=== PATIENT | male | born 1955 | race Caucasian/White ===

== ENCOUNTER 2018-01-14 19:03 | Emergency (ER) | payer OTHER, SELFPAY ==
[2018-01-14 19:11] VITALS: BP 160/87; PULSE 87; RESP 20; TEMP 36.7; O2SAT 99; BMI 29.0
== END 2018-01-14 19:43 | disposition left against medical advice (07) ==
LOC: ED 19:10
PROVIDERS: Family Provider Internal Medicine; PCP Internal Medicine
DX: R10.9 Unspecified abdominal pain (principal)
CPT/HCPCS: 99281; 99282

== ENCOUNTER 2018-01-16 06:20 | Emergency (ER) | payer OTHER, SELFPAY ==
[2018-01-16 06:43] VITALS: BP 136/79; PULSE 83; RESP 17; TEMP 36.6; O2SAT 99; BMI 29.0
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
[2018-01-16 07:05] LABS: Add Manual Diff / Slide Review NO; Basophils Percent Auto 0.5 % (0-2); Eosinophils Percent Auto 2.9 % (2-4); Hematocrit 36.1 % (41-53); Hemoglobin 12.3 g/dL (13.5-17.5); Mean Corpuscular HGB Conc 34.1 % (30-36); Mean Corpuscular Volume 82.3 fL (80-100); Monocytes Percent Auto 8.6 % (3-14); Neutrophils Absolute Auto 5700 /uL (3000-5900); Platelet Count 249 X10^3/uL (150-400); Red Blood Cell Count 4.39 X10^6/uL (4.5-5.9); Red Cell Distribution Width 13.9 % (11.6-14.8); White Blood Cell Count 8.2 X10^3/uL (4.5-11.0)
[2018-01-16 07:10] LABS: Alanine Aminotransferase 29 IU/L (21-72); Albumin 4.4 g/dL (3.5-5.0); Albumin Globulin Ratio 1.5 (1.0-2.8); Alkaline Phosphatase 102 U/L (38-126); Aspartate Aminotransferase 25 IU/L (17-59); BUN Creatinine Ratio 13.3 (6-22); Bilirubin Total 0.4 mg/dL (0.2-1.3); Blood Urea Nitrogen 20 mg/dL (9-20); Calcium 8.9 mg/dL (8.4-10.2); Carbon Dioxide 24 mmol/L (22-32); Chloride 107 mmol/L (98-107); Estimated Glomerular Filt Rate 47.7 mL/min (>60); Globulin 2.9 g/dL (1.7-4.1); Glucose 113 mg/dL (80-110); HEMOLYSIS < 15 (0-50); Lipase 157 U/L (23-300); Potassium 4.1 mmol/L (3.4-5.1); Sodium 143 mmol/L (137-145); Total Protein 7.3 g/dL (6.3-8.2)
[2018-01-16] MEDS: SODIUM CHLORIDE 0.9% 1,000 ML 150 ML IV (07:19)
[2018-01-16] MEDS: ONDANSETRON 4 MG/2 ML INJ IV (07:19)
[2018-01-16] MEDS: HYDROMORPHONE 1 MG INJ 0.5 MG IV (07:20)
--- NOTE | 2018-01-16 07:33 | DI.CT.S_ITS ---
PROCEDURE: CT ABDOMEN PELVIS W CON INDICATIONS: severe abdominal pain TECHNIQUE: After the administration of intravenous contrast, 5 mm thick sections acquired from the diaphragm to the symphysis. 5 mm coronal and sagittal reformats were acquired. For radiation dose reduction, the following was used: automated exposure control, adjustment of mA and/or kV according to patient size. COMPARISON: None. FINDINGS: Image quality: Excellent. ABDOMEN: Lung bases: Lung bases are clear. Heart size is normal. Solid organs: Liver is normal in size. Diffuse hepatic steatosis is seen. No discrete hepatic lesion is identified. Gallbladder is surgically absent. Biliary system is non dilated. Pancreas enhances normally. Spleen is normal in size and enhancement. No adrenal nodules. Kidneys demonstrate normal size and enhancement, without hydronephrosis. Numerous bilateral renal cortical cysts are seen measures up to 2.3 cm in size in upper pole of left kidney. 3 mm nonobstructing stone in the upper to midpole of left kidney is also seen. Left parapelvic cyst is also seen. Peritoneum and bowel: Bowel loops demonstrate normal wall thickness and caliber. No free fluid or air. The appendix is visualized and is within normal limits Nodes and vessels: No retroperitoneal or mesenteric adenopathy by size criteria. Aorta and inferior vena cava are normal in size. Miscellaneous: No ventral hernias. PELVIS: Genitourinary: There is mild diffuse bladder wall thickening. Enlarged prostate gland with mass effect on floor of urinary bladder is seen. Multiple calcifications are noted in dependent portion of bladder lumen measures up to 1.6 cm in size and may represent bladder stones. Miscellaneous: No inguinal hernias or adenopathy. Bones: No suspicious bony lesions. No vertebral body compression fractures. IMPRESSION: 1. Diffuse bladder wall thickening. Enlarged prostate gland with significant mass effect on floor of urinary bladder. No definite discrete bladder wall mass is seen. 2-3 calcifications in dependent portion of bladder lumen, likely represent bladder stones. 2. Bilateral renal cysts. Tiny nonobstructing left renal stone. No obstructing renal side hydronephrosis. 3. Hepatic steatosis. No discrete hepatic lesion. Prior cholecystectomy. 4. No bowel obstruction. Normal appendix. No free fluid or free air. Dictated by: Cayden Ahmadi M.D. on 01/16/2018 at 8:17 Approved by: Cayden Ahmadi M.D. on 01/16/2018 at 8:24
[2018-01-16 08:57] VITALS: BP 139/70; PULSE 67; RESP 15; O2SAT 97
--- NOTE | 2018-02-08 08:00 | PC.NURSE ---
IV fluid stop time is 0900 and pt recieved 300 cc NS
== END 2018-01-16 09:06 | disposition home or self-care (01) ==
PROVIDERS: Emergency Medicine; Emergency Provider Emergency Medicine; Family Provider Internal Medicine; PCP Internal Medicine
DX: R10.9 Unspecified abdominal pain (principal)
CPT/HCPCS: 36591; 74177; 80053; 81003; 83690; 85025; 96361; 96374; 96375; 99283; 99285; J1170; J2405; Q9967

== ENCOUNTER → 2018-05-24 08:15 | Outpatient (CLI) | payer OTHER, SELFPAY | PROVIDERS: PCP Internal Medicine; Visit Provider Urology | DX: R97.20 Elevated prostate specific antigen [PSA] (principal) | CPT/HCPCS: 36415; 84153 ==

== ENCOUNTER → 2018-11-24 09:46 | Outpatient (CLI) | payer OTHER, SELFPAY ==
--- NOTE | 2018-11-24 11:07 | PM.TREADMILL ---
Cardiac Stress Test Report Referral & Results Date Patient Seen: 11/24/18 Requesting provider: Cruz Baez Indication: Dyspnea with exertion Rest ECG: Unremarkable Procedure Note: Today following both written and verbal informed consent, the patient was exercised according to a standard Roger protocol. The patient exercised for a total of for minutes 26 seconds achieving a maximum heart rate of 141. Patient's maximum systolic blood pressure was 150. This was an estimated 7.0 MET's. There are no ST-T segment changes identified Patient became quite dyspneic although his oxygen saturation remained normal throughout Function aerobic impairment rates about 35% of the sedentary scale Rare PAC Impression: No evidence of ischemia Normal oxygen saturation so no evidence of hypoxia despite severe dyspnea with activity Limited exercise capacity due to dyspnea as above Please note: Actual ECG tracings can be found in the PACS system.
== END ==
PROVIDERS: Family Provider Internal Medicine; PCP Internal Medicine; Visit Provider Internal Medicine
DX: R06.09 Other forms of dyspnea (principal); J45.909 Unspecified asthma, uncomplicated
CPT/HCPCS: 93016; 93017; 93018

== ENCOUNTER → 2019-01-06 12:28 | Outpatient (CLI) | payer OTHER, SELFPAY ==
[2019-01-06 14:41] LABS: Prostate Specific Antigen 11.1 ng/mL (0.10-4.00)
== END ==
PROVIDERS: Family Provider Internal Medicine; PCP Internal Medicine; Visit Provider Urology
DX: R97.20 Elevated prostate specific antigen [PSA] (principal)
CPT/HCPCS: 36415; 84153

== ENCOUNTER → 2019-02-11 10:03 | Outpatient (CLI) | payer OTHER, SELFPAY ==
[2019-02-11 10:45] LABS: Mean Corpuscular HGB Conc 29.8 % (30-36); Mean Corpuscular Hemoglobin 18.8 PG (26-34); Mean Corpuscular Volume 63.1 fL (80-100); Platelet Count 290 X10^3/uL (150-400); Red Blood Cell Count 2.96 X10^6/uL (4.5-5.9); Red Cell Distribution Width 19.5 % (11.6-14.8); White Blood Cell Count 3.9 X10^3/uL (4.5-11.0)
[2019-02-11 10:55] LABS: Reticulocyte Count, Percent 2.7 % (0.87-2.60)
[2019-02-11 10:58] LABS: Hemoglobin 5.6 g/dL (13.5-17.5)
[2019-02-11 10:59] LABS: Hematocrit 18.7 % (41-53)
[2019-02-11 11:04] LABS: INR 1.2 (0.9-1.3); Prothrombin Time 13.4 SECONDS (10.1-12.7)
[2019-02-11 11:07] LABS: PTT Partial Thromboplastin Tim 28 SECONDS (26.4-36.2)
[2019-02-11 11:12] LABS: HEMOLYSIS < 15 (0-50); Iron 11 ug/dL (49-181)
[2019-02-11 11:13] LABS: Neutrophils Absolute Manual 2574 /uL (3000-5900); Total Cells Counted 100
[2019-02-11 11:14] LABS: Microcytosis 4+; RBC Morphology Normal Morphology; Rouleaux 2+
[2019-02-11 11:23] LABS: Percent Iron Saturation 3 % (20-50); Total Iron Binding Capacity 438 ug/dL (261-462); Transferrin 370 mg/dL (206-381)
[2019-02-11 11:48] LABS: Ferritin 3.8 ng/mL (17.9-464)
[2019-02-11 12:18] LABS: Folate > 20.0 ng/mL (2.76-20.0); Vitamin B12 450 pg/mL (239-931)
== END ==
PROVIDERS: PCP Internal Medicine; Visit Provider Student in an Organized Health Care Education/Training Program
DX: D64.9 Anemia, unspecified (principal); R58 Hemorrhage, not elsewhere classified; D62 Acute posthemorrhagic anemia
CPT/HCPCS: 36415; 82607; 82728; 82746; 83540; 83550; 85025; 85045; 85610; 85730; 86880

== ENCOUNTER → 2019-02-11 13:11 | Oncology outpatient (ONC) | payer OTHER, SELFPAY ==
[2019-02-11] VITALS (9 sets, daily range): BP systolic 110–132; BP diastolic 58–69; PULSE 58–75; RESP 16–18; TEMP 36.4–36.6; O2SAT 100
[2019-02-11 14:25] LABS: Alanine Aminotransferase 25 IU/L (21-72); Albumin 4.3 g/dL (3.5-5.0); Albumin Globulin Ratio 1.5 (1.0-2.8); Alkaline Phosphatase 122 U/L (38-126); Aspartate Aminotransferase 21 IU/L (17-59); BUN Creatinine Ratio 11.9 (6-22); Bilirubin Total 0.5 mg/dL (0.2-1.3); Bilirubin Unconjugated 0.2 mg/dL (0.0-1.1); Blood Urea Nitrogen 19 mg/dL (9-20); Calcium 9.3 mg/dL (8.4-10.2); Carbon Dioxide 19 mmol/L (22-32); Chloride 109 mmol/L (98-107); Estimated Glomerular Filt Rate 44.2 mL/min (>60); Globulin 2.9 g/dL (1.7-4.1); Glucose 97 mg/dL (80-110); HEMOLYSIS < 15 (0-50); Potassium 4.5 mmol/L (3.4-5.1); Sodium 141 mmol/L (137-145); Total Protein 7.2 g/dL (6.3-8.2)
--- NOTE | 2019-02-11 16:42 | PC.NURSE ---
Pt brought to ACU at 16:30 care transferred
--- NOTE | 2019-02-11 19:43 | PC.NURSE ---
Addendum entered by Elizabeth Alvarado R.N. 02/11/19 21:07: ended second unit without issue. Vitals remain stable. IV removed. Pt off acute care floor via wheelchair with family member to personal vehicle. Original Note: Unable to chart on unit that patient had infusing when they arrived on acute care due to computer issue. [id number] ended at 1722 BP127/69 HR 66 RR 16 T 98 Also had issues getting the next unit started and scanned. KARINA from Lab able to assist.
--- NOTE | 2019-03-24 10:49 | ONC.MSW ---
Description: New Referral Navigation T/C Activity: Called pt to introduce myself as the [facility], confirm that we have his referral and will be working on getting him an urgent appt here in Oncology. He is just 2-weeks post-op from a newly diagnosed colon cancer resection surgery, and reports that he is recovering well at this time. Discussed the availability of navigation to assist with any resources, support, questions or assistance as part of his ongoing care here at [facility]. Explained that he will be hearing from our schedulers within the next day or two. He expressed understanding.
== END ==
PROVIDERS: PCP Internal Medicine; Visit Provider Student in an Organized Health Care Education/Training Program
DX: D62 Acute posthemorrhagic anemia (principal); R58 Hemorrhage, not elsewhere classified; D64.9 Anemia, unspecified
CPT/HCPCS: 36415; 36430; 80048; 80076; 82607; 82728; 82746; 83540; 83550; 85025; 85045; 85610; 85730; 86850; 86880; 86900; 86901; P9016

== ENCOUNTER → 2019-02-12 16:05 | Outpatient (CLI) | payer OTHER, SELFPAY ==
[2019-02-12 17:10] LABS: Alanine Aminotransferase 16 IU/L (21-72); Albumin Globulin Ratio 1.3 (1.0-2.8); Alkaline Phosphatase 106 U/L (38-126); Aspartate Aminotransferase 19 IU/L (17-59); BUN Creatinine Ratio 12.1 (6-22); Bilirubin Total 0.5 mg/dL (0.2-1.3); Blood Urea Nitrogen 17 mg/dL (9-20); Calcium 8.8 mg/dL (8.4-10.2); Carbon Dioxide 21 mmol/L (22-32); Chloride 111 mmol/L (98-107); Estimated Glomerular Filt Rate 51.5 mL/min (>60); Glucose 95 mg/dL (80-110); HEMOLYSIS < 15 (0-50); Potassium 4.6 mmol/L (3.4-5.1); Sodium 141 mmol/L (137-145)
== END ==
PROVIDERS: Family Provider Internal Medicine; PCP Internal Medicine; Visit Provider Student in an Organized Health Care Education/Training Program
DX: D64.9 Anemia, unspecified (principal); R58 Hemorrhage, not elsewhere classified
CPT/HCPCS: 36415; 80053

== ENCOUNTER → 2019-02-14 10:23 | Outpatient (CLI) | payer OTHER, SELFPAY ==
[2019-02-14 16:33] LABS: Occult Blood 1 Positive (Negative); Occult Blood 2 Positive (Negative)
[2019-02-14 16:34] LABS: Occult Blood 3 Positive (Negative)
== END ==
PROVIDERS: Family Provider Internal Medicine; PCP Internal Medicine; Visit Provider Student in an Organized Health Care Education/Training Program
DX: D64.9 Anemia, unspecified (principal)
CPT/HCPCS: 82270

== ENCOUNTER → 2019-02-17 12:36 | Outpatient (CLI) | payer OTHER, SELFPAY ==
[2019-02-17 12:50] LABS: Add Manual Diff / Slide Review NO; Basophils Absolute Auto 0 /uL (0-100); Basophils Percent Auto 0.4 % (0-2); Eosinophils Absolute Auto 0 /uL (0-450); Hematocrit 28.1 % (41-53); Hemoglobin 8.5 g/dL (13.5-17.5); Lymphocytes Absolute Auto 1300 /uL (1100-4500); Lymphocytes Percent Auto 17.9 % (25-40); Mean Corpuscular HGB Conc 30.3 % (30-36); Mean Corpuscular Hemoglobin 20.9 PG (26-34); Monocytes Absolute Auto 500 /uL (0-900); Monocytes Percent Auto 6.7 % (3-14); Neutrophils Absolute Auto 5500 /uL (1500-7000); Platelet Count 334 X10^3/uL (150-400); Red Blood Cell Count 4.07 X10^6/uL (4.5-5.9); Red Cell Distribution Width 23.1 % (11.6-14.8); White Blood Cell Count 7.3 X10^3/uL (4.5-11.0)
[2019-02-17 13:21] LABS: Anisocytosis 2+; Microcytosis 2+
[2019-02-17 13:22] LABS: Poikilocytosis 1+
== END ==
PROVIDERS: Family Provider Internal Medicine; PCP Internal Medicine; Visit Provider Internal Medicine Gastroenterology
DX: D50.0 Iron deficiency anemia secondary to blood loss (chronic) (principal)
CPT/HCPCS: 36415; 85025

== ENCOUNTER 2019-02-18 07:57 | Day surgery (SDC) | payer OTHER, SELFPAY ==
[2019-02-18] VITALS (8 sets, daily range): BP systolic 101–138; BP diastolic 63–74; PULSE 71–707; RESP 14–17; TEMP 36.4–36.9; O2SAT 95–100; BMI 28.6
--- NOTE | 2019-02-18 08:58 | PM.PREOP ---
Pre-operative Note Interval Note History & Physical reviewed/Exam performed by Physician: Yes Changes to H&P: No ASA Class (for procedural sedation): II
--- NOTE | 2019-02-18 08:58 | PM.OP.ENDO ---
Operative Date/Time/Diagnoses Date of procedure: 02/18/19 Time of procedure: 08:58 Pre-op diagnosis: see indication and findings Procedure & Clinicians Study performed: EGD Same procedure as scheduled: Yes Indications: Severe blood loss anemia status post transfusion Surgeon: Tami Salter Procedure Notes Procedure in detail: After informed consent was obtained the patient was placed in the left lateral decubitus position. The video upper scope was placed into the oropharynx with the patient's health swallowed into the esophagus. The esophagus, stomach, duodenum were all carefully examined. On withdrawal retroflexed view the GE junction was performed. The scope was removed. The patient tolerated the procedure well. Blood loss none Complications none Sedation Total sedation time 10 minutes Versed 5 mg fentanyl 100 micro g IV titration Findings 1. A somewhat ringed esophagus with a mild to moderate Schatzki's ring at the GE junction possible eosinophilic esophagitis. No biopsies taken due to current hematocrit issues 2. Multiple gastric polyps in the body consistent with proton pump inhibitor fact causing fundic gland polyps. No biopsies taken distal stomach completely normal 3. Normal duodenal bulb and sweep Patient will need to be scheduled for colonoscopy and will get that set up for him. Current hematocrit today is 28.5%. He will remain on iron and recheck blood count in a week.
[2019-02-18] MEDS: fentaNYL 250 MCG/5 ML INJ IV (09:12)
[2019-02-18] MEDS: MIDAZOLAM 5 MG/5 ML VIAL IV (09:12)
--- NOTE | 2019-02-18 10:02 | SUR.PHASEI ---
0955Awake, HOB elevated, water given, denies any discomfort, swallowing water without difficulty. stable and preparing for tranfer to Phase II
--- NOTE | 2019-02-18 10:07 | SUR.PHASEI ---
report given, to bedside. pt awake and orienter. stable
== END 2019-02-18 10:15 | disposition home or self-care (01) ==
PROVIDERS: PCP Internal Medicine; Visit Provider Internal Medicine Gastroenterology
PROC: 0DJ08ZZ Inspection of Upper Intestinal Tract, Via Natural or Artificial Opening Endoscopic (ICD-10-PCS; CPT 43235; principal; 2019-02-18 09:00)
DX: D50.0 Iron deficiency anemia secondary to blood loss (chronic) (principal); K22.2 Esophageal obstruction; J45.909 Unspecified asthma, uncomplicated; R13.19 Other dysphagia; K31.7 Polyp of stomach and duodenum
CPT/HCPCS: 43235; J2250; J3010

== ENCOUNTER → 2019-03-02 13:23 | Outpatient (CLI) | payer OTHER, SELFPAY ==
[2019-03-02 14:16] LABS: Add Manual Diff / Slide Review NO; Basophils Absolute Auto 0 /uL (0-100); Basophils Percent Auto 0.6 % (0-2); Eosinophils Absolute Auto 0 /uL (0-450); Hematocrit 29.5 % (41-53); Hemoglobin 8.9 g/dL (13.5-17.5); Lymphocytes Absolute Auto 1500 /uL (1100-4500); Lymphocytes Percent Auto 23.1 % (25-40); Mean Corpuscular HGB Conc 30.3 % (30-36); Mean Corpuscular Hemoglobin 21.8 PG (26-34); Mean Corpuscular Volume 72.1 fL (80-100); Monocytes Absolute Auto 500 /uL (0-900); Neutrophils Absolute Auto 4500 /uL (1500-7000); Neutrophils Percent Auto 68.3 % (50-75); Platelet Count 285 X10^3/uL (150-400); Red Blood Cell Count 4.09 X10^6/uL (4.5-5.9); Red Cell Distribution Width 25.7 % (11.6-14.8); White Blood Cell Count 6.6 X10^3/uL (4.5-11.0)
[2019-03-02 14:29] LABS: Anisocytosis 2+; Microcytosis 3+
== END ==
PROVIDERS: PCP Internal Medicine; Visit Provider Internal Medicine Gastroenterology
DX: D50.0 Iron deficiency anemia secondary to blood loss (chronic) (principal)
CPT/HCPCS: 36415; 85025

== ENCOUNTER → 2019-03-04 12:57 | Outpatient (CLI) | payer OTHER, SELFPAY ==
--- NOTE | 2019-03-04 | DI.CT.S_ITS ---
PROCEDURE: CT CHEST ABD PEL W CON INDICATIONS: Colon cancer TECHNIQUE: After the administration of oral and intravenous contrast, 5 mm thick sections acquired from the lung apices to the symphysis. 5 mm coronal and sagittal reformats were performed, with additional 7 mm coronal MIP reformats through the lungs. For radiation dose reduction, the following was used: automated exposure control, adjustment of mA and/or kV according to patient size. COMPARISON: [facility], CT, CT ABDOMEN PELVIS W CON, 01/16/2018, 7:25. [facility], CT, CT CHEST WITHOUT CONTRAST, 05/14/2018, 9:53. FINDINGS: Image quality: Excellent. CHEST: Lungs and pleura: No acute consolidation. Scattered subsegmental atelectasis and/or scarring. No pleural effusion. No pneumothorax. 2 mm nodule seen in the right upper lobe, unchanged on image 145 series 7 3 mm nodules in the left lung base on image 179 series 7 is also unchanged. Mediastinum: Heart size is normal. No pericardial effusion. No mediastinal or hilar adenopathy by size criteria. Thoracic aorta and central pulmonary arteries are normal in size. Esophagus is normal in caliber. No hiatal hernia. Chest wall: No axillary or supraclavicular adenopathy by size criteria. Thyroid gland negative. ABDOMEN: Solid organs: Hepatic steatosis, mild. Gallbladder surgically absent. Biliary system is non-dilated. Pancreas enhances normally. Spleen is normal in size and enhancement. Adrenal glands unremarkable. Bilateral renal cortical scarring/atrophy. Presumed bilateral renal cysts although some of these are technically too small to characterize accurately Peritoneum and bowel: Stomach is within normal limits. A presumed duodenal diverticulum incidentally noted. No free fluid or air. No specific evidence for bowel obstruction. Segmental wall thickening of the distal transverse colon in keeping patient given clinical history of colon carcinoma. There is adjacent inflammation and stranding, and shotty mesenteric lymph nodes, sub-5 mm size. Rectum unremarkable, given current state of decompression. Nodes and vessels: No retroperitoneal or mesenteric adenopathy by size criteria. Aorta and inferior vena cava are normal in size. Miscellaneous: No ventral hernias. PELVIS: Genitourinary: Multiple large bladder calculi are seen, as before. Circumferential bladder wall thickening, grossly unchanged. Enlarged prostate. Miscellaneous: Tiny fat-containing right inguinal hernia. No pelvic adenopathy. Bones: No suspicious bony lesions. No vertebral body compression fractures. IMPRESSION: Short segmental mural thickening involving the distal transverse colon in keeping with the given clinical history of colon carcinoma. Adjacent shotty sub-5 mm mesenteric lymph nodes. Elsewhere, no specific evidence for distant metastatic disease. Additional chronic and incidental findings as above. Dictated by: Robert Mendes M.D. on 03/04/2019 at 15:17 Approved by: Robert Mendes M.D. on 03/04/2019 at 15:35
[2019-03-04 13:43] LABS: Blood Urea Nitrogen 15 mg/dL (9-20); Estimated Glomerular Filt Rate 47.6 mL/min (>60)
== END ==
PROVIDERS: Family Provider Surgery; PCP Internal Medicine; Visit Provider Internal Medicine Gastroenterology
DX: C18.4 Malignant neoplasm of transverse colon (principal); D50.0 Iron deficiency anemia secondary to blood loss (chronic); R91.8 Other nonspecific abnormal finding of lung field; K76.0 Fatty (change of) liver, not elsewhere classified; N21.0 Calculus in bladder; N40.0 Benign prostatic hyperplasia without lower urinary tract symptoms; M54.12 Radiculopathy, cervical region; Z90.49 Acquired absence of other specified parts of digestive tract
CPT/HCPCS: 36415; 71260; 74177; 82565; 84520; Q9967

== ENCOUNTER → 2019-03-09 09:35 | Outpatient (CLI) | payer OTHER, SELFPAY | PROVIDERS: Family Provider Surgery; PCP Internal Medicine; Visit Provider Specialist | DX: C18.9 Malignant neoplasm of colon, unspecified (principal); R63.4 Abnormal weight loss; R79.89 Other specified abnormal findings of blood chemistry; D50.0 Iron deficiency anemia secondary to blood loss (chronic) | CPT/HCPCS: 36415; 80053; 82378; 85025; 86850; 86900; 86901 ==

== ENCOUNTER 2019-03-11 12:20 | Inpatient (IN) | payer OTHER, SELFPAY ==
[2019-03-09 07:33] VITALS: BMI 28.5
[2019-03-09 10:01] LABS: Add Manual Diff / Slide Review NO; Basophils Absolute Auto 0 /uL (0-100); Basophils Percent Auto 0.8 % (0-2); Eosinophils Absolute Auto 0 /uL (0-450); Eosinophils Percent Auto 0.1 % (2-4); Hematocrit 29.3 % (41-53); Lymphocytes Absolute Auto 1200 /uL (1100-4500); Lymphocytes Percent Auto 20.5 % (25-40); Mean Corpuscular HGB Conc 30.8 % (30-36); Mean Corpuscular Hemoglobin 22.4 PG (26-34); Mean Corpuscular Volume 72.6 fL (80-100); Monocytes Absolute Auto 400 /uL (0-900); Monocytes Percent Auto 6.9 % (3-14); Neutrophils Absolute Auto 4000 /uL (1500-7000); Neutrophils Percent Auto 71.7 % (50-75); Platelet Count 306 X10^3/uL (150-400); Red Blood Cell Count 4.03 X10^6/uL (4.5-5.9); Red Cell Distribution Width 25.9 % (11.6-14.8); White Blood Cell Count 5.6 X10^3/uL (4.5-11.0)
[2019-03-09 10:28] LABS: Anisocytosis 2+; Dimorphic RBC 2; Poikilocytosis 2+
[2019-03-09 10:55] LABS: Alanine Aminotransferase 19 IU/L (21-72); Albumin 4.2 g/dL (3.5-5.0); Albumin Globulin Ratio 1.5 (1.0-2.8); Alkaline Phosphatase 106 U/L (38-126); Aspartate Aminotransferase 19 IU/L (17-59); BUN Creatinine Ratio 9.3 (6-22); Bilirubin Total 0.5 mg/dL (0.2-1.3); Blood Urea Nitrogen 14 mg/dL (9-20); Calcium 9.4 mg/dL (8.4-10.2); Carbon Dioxide 22 mmol/L (22-32); Chloride 109 mmol/L (98-107); Estimated Glomerular Filt Rate 47.6 mL/min (>60); Globulin 2.8 g/dL (1.7-4.1); Glucose 92 mg/dL (80-110); HEMOLYSIS < 15 (0-50); Potassium 4.8 mmol/L (3.4-5.1); Sodium 142 mmol/L (137-145)
[2019-03-09 11:24] LABS: Carcinoembryonic Antigen 2.7 ng/mL (0.1-3.0)
[2019-03-11] VITALS (10 sets, daily range): BP systolic 122–153; BP diastolic 69–87; PULSE 71–95; RESP 10–18; TEMP 36.1–37.2; O2SAT 95–100; BMI 26.7
--- NOTE | 2019-03-11 | PATH_ITS ---
[facility] Accession Number: [id number] . 01 Material submitted: . colon - TRANSVERSE AND DESCENDING COLON . 01 Clinical history: . MALIGNANT NEOPLASM OF COLON, UNSPECIFIED LONG SILK BEE PROXIMAL END . 02 Diagnosis: Transverse and Descending Colon, Resection: Invasive colonic adenocarcioma. Please see cancer summary data below. . SURGICAL PATHOLOGY CANCER CASE SUMMARY Procedure: Left colon resection. Tumor Site: Distal transverse colon. Tumor Size: 4.2 cm in greatest dimension (per gross examination). Macroscopic Tumor Perforation: Not identified. Histologic Type: Adenocarcinoma. Histologic Grade: G2: moderately differentiated. Tumor Extension: Tumor invades through the muscularis propria into pericolorectal tissue. Margins: All margins are uninvolved by invasive carcinoma, high-grade dysplasia, intramucosal adenocarcinoma and adenoma. Margins Examined: Proximal, distal. Distance of Invasive Carcinoma from Closest Margin: 1.6 cm. Specified closest margin: Proximal. Mucosal margin: Uninvolved by invasive carcinoma, intramucosal adenocarcinoma, high-grade dysplasia, and adenoma. Treatment effect: No known presurgical therapy. Lymphovascular invasion: Present: small vessel lymphovascular invasion. Perineural invasion: Not identified. Tumor deposits: Not identified. Regional lymph nodes: Number of lymph nodes involved: 0. Number of lymph nodes examined: 14. . Pathologic stage classification (pTNM, AJCC 8th Edition): Primary tumor: pT3 Regional lymph nodes: pN0 . Additional pathologic findings: Pigmented material consistent with tattoo ink. Ancillary studies: Intact expression of mismatch repair proteins MLH1, MSH2, MSH6 and PMS2, per report ([id number], [facility]). MRV 03/16/2019 1525 Local . 02 Electronically signed: . Karla Ribera MD, Pathologist NPI- [id number] . 01 Gross description: . Received in formalin, labeled transverse + descending colon, long silk bee proximal end, is a partially opened segment of colon (length-16.5 cm, proximal diameter-3.1 cm, distal diameter-2.5 cm) with attached adipose tissue (up to 16.5 cm in depth). A long suture indicates the proximal end. The resection margins are received stapled. A ag firm circumferential mass (4.2 x 3.8 x 3.5 cm) is identified 2.7 cm from the proximal, 10.8 cm from the distal, and 4.0 cm from the radial resection margins. The mass appears to be 0.4 cm from the closest serosa. The mass extends into the adipose tissue. The remaining mucosa is ag with normal folds and is inked black adjacent to the mass. No other nodules, masses or lesions are identified. Multiple possible lymph nodes (0.1 cm-0.4 cm) are identified. The resection margins are inked black and the serosa is blue. Section code: (A1) proximal resection margin with mass, longitudinal desk representative; (A2) distal resection margin, longitudinal desk representative; (A3) radial resection margin, desk representative serial sections; (A4) serosa with mass, desk representative serial section; (A5-A14) colon segment, desk representative serial sections submitted proximal to distal; (A15, A16) multiple intact lymph nodes. ([id number]) /MRV 03/14/2019 2154 Local . 02 Pathologist provided ICD-10: C18.9 . 02 CPT . 988532 Performed at: 01 [facility] [address] [address] [id number] MD Jean-Paul Rutherford MD Phone: [phone] Performed at: 02 [facility] [address] [place], [place] [id number] MD Karla Ribera MD Phone: [phone]
--- NOTE | 2019-03-11 14:07 | PM.PREOP ---
Pre-operative Note Interval Note History & Physical reviewed/Exam performed by Physician: Yes Changes to H&P: Yes H&P completed within 30 days and has changed as indicated here:: please see recent office note. Patient took bowel prep and po antibiotics as instructed.
[2019-03-11] MEDS: LACTATED RINGERS 1,000 ML 42 ML IV ×3 (15:44→20:55)
[2019-03-11] MEDS: PIPERACILLIN-TAZO 3.375 GM/50 ML FROZ.PIGGY IV ×2 (16:00→19:59)
--- NOTE | 2019-03-11 16:46 | SUR.OPER ---
Lithotomy on padded OR bed. [place] Pad Positioner under torso. Head on pillow, arms padded and tucked at sides. Legs secured in padded yellow fins stirrups.
[2019-03-11] MEDS: BUPIVACAINE 0.5% (PF) VIAL 30 ML INJ (16:55)
[2019-03-11] MEDS: ACETAMINOPHEN IV 1,000 MG/100 ML VIAL 400 MG IV (20:50)
--- NOTE | 2019-03-11 21:58 | P.OP_ITS ---
Operative Date/Time/Diagnoses Date of procedure: 03/11/19 Time of procedure: 21:30 Pre-op diagnosis: Colon cancer distal transverse colon Post-op diagnosis: same Procedure & Clinicians Procedure: Laparoscopic left colon resection Same procedure as scheduled: Yes Indications: Colon cancer distal transverse colon Surgeon: Tramaine Schafer Steam Turbine Assembler: Arelis Merlos Anesthesia Type: General Operative Notes Findings: Large mass near obstructing left colon. Large amount of dye in the mesentery Closure Type: primary Specimen(s): other (Portion of colon and mesentery) Prosthetic devices, grafts, tissues, transplants, or devices: None Applied: catheter (Mendoza) Estimated Blood Loss (mL): 100 Blood products transfused: none Procedure in detail: The patient was placed supine on the operating room table and underwent general endotracheal anesthesia. A Mendoza was catheter was placed he was placed in low lithotomy and prepped and draped in the usual fashion. Small incision is made just below the umbilicus and the peritoneum was entered under direct vision. A 12 mm port was placed and the abdomen was insufflated. Additional ports were placed in the upper midline the right upper quadrant and the left lower quadrant. I mobilized the left colon using Harmonic scalpel reflecting the colon medially. We then worked from the mid colon laterally dividing colonic omentum releasing the upper edge of the colon. I also divided the omentum hanging off the colon leaving the portion in the region the mass and lateral attached to the colon. There was a large amount of ink in the mesentery which obscured the anatomy considerably. After mobilizing the colon we also divided the attachments and scarring that was in the area of the sigmoid and released it. The ports were then removed and incision was made between the upper midline and umbilical ports. It was carried into the peritoneal cavity. An Jailyn skin protector was inserted. The colon was mobilized into the wound. I divided the transverse colon just to the left of what felt like the middle colic artery. This was accomplished with a FRIDA 75. Mesentery was then divided near its base laterally using a clamp and tie technique.. We then continued onward along the descending colon mesentery to the sigmoid colon. We Preserved the main branch of the ileocolic but divided the branches going to the left colon above this si The bowel was transected and specimen removed. It was partially opened except for the area right at the tumor. We appeared to have at least 5 cm margin on the medial aspect and much longer on lateral. We then created an end-to-end anastomosis in 2 layers consisting of an outer layer seromuscular 3 0 silks and an inner running layer of 3 0 Vicryl Fowler technique. The anastomosis was tested for leak and none was found. It was widely patent and examination. There was no attempt made to close the very wide mesenteric defect. There was no tension on the anastomosis. The abdomen is irrigated and suctioned free of fluid. The omentum was pulled down over the intestine and placed as a barrier between it and the midline incision. The fascia the midline was closed with a running double-stranded 1. Maxon. Occasional interrupted [id number] 0 Vicryl or also placed. The wound was irrigated. The subcu was closed with interrupted 3 0 Vicryl and skin was closed running 4 0 Vicryl subcuticular stitch and Steri-Strips. Four 0 Vicryl was also used to close the 2 remaining port sites which were 5 mm port sites. Mastisol Steri-Strips were applied dressing was applied and the patient was awakened extubated and taken recovery area in good condition. Complications: none Post-operative Condition: stable Disposition: PACU
[2019-03-11] MEDS: fentaNYL 100 MCG/2 ML INJ 50 MCG IV ×2 (22:00→22:05)
[2019-03-12] VITALS (7 sets, daily range): BP systolic 106–141; BP diastolic 55–77; PULSE 65–84; RESP 16–18; TEMP 36.4–37.4; O2SAT 93–100
[2019-03-12] MEDS: LACTATED RINGERS 1,000 ML 125 ML IV ×2 (00:41→07:26)
[2019-03-12] MEDS: OXYCODONE IR 5 MG TABLET PO ×4 (00:43→16:26)
[2019-03-12] MEDS: TRAZODONE 50 MG TABLET PO ×2 (00:44→20:12)
[2019-03-12 05:10] LABS: Basophils Absolute Auto 0 /uL (0-100); Basophils Percent Auto 0.1 % (0-2); Eosinophils Absolute Auto 0 /uL (0-450); Hematocrit 29.5 % (41-53); Lymphocytes Absolute Auto 400 /uL (1100-4500); Lymphocytes Percent Auto 3.9 % (25-40); Mean Corpuscular HGB Conc 30.4 % (30-36); Mean Corpuscular Hemoglobin 22.4 PG (26-34); Mean Corpuscular Volume 73.7 fL (80-100); Monocytes Absolute Auto 400 /uL (0-900); Monocytes Percent Auto 4.3 % (3-14); Neutrophils Absolute Auto 8700 /uL (1500-7000); Neutrophils Percent Auto 91.7 % (50-75); Platelet Count 280 X10^3/uL (150-400); Red Cell Distribution Width 24.9 % (11.6-14.8); White Blood Cell Count 9.5 X10^3/uL (4.5-11.0)
[2019-03-12 05:11] LABS: Add Manual Diff / Slide Review SLIDE REVIEW
[2019-03-12 05:17] LABS: Magnesium 2.2 mg/dL (1.6-2.3)
[2019-03-12 05:18] LABS: BUN Creatinine Ratio 10.5 (6-22); Blood Urea Nitrogen 20 mg/dL (9-20); Calcium 8.7 mg/dL (8.4-10.2); Carbon Dioxide 19 mmol/L (22-32); Chloride 110 mmol/L (98-107); Estimated Glomerular Filt Rate 36.2 mL/min (>60); Glucose 149 mg/dL (80-110); HEMOLYSIS < 15 (0-50); Potassium 4.7 mmol/L (3.4-5.1); Sodium 138 mmol/L (137-145)
[2019-03-12] MEDS: PANTOPRAZOLE 40 MG TABLET PO ×2 (06:04→20:12)
[2019-03-12 07:12] LABS: Anisocytosis 2+; Basophilic Stippling 1+; Poikilocytosis 1+; Polychromasia 1+; Schistocytes 1+
--- NOTE | 2019-03-12 09:07 | PM.PN.1 ---
Subjective Subjective Date Patient Seen: 03/12/19 Time Patient Seen: 09:00 Interval history: No acute events overnight. Pain moderately well controlled on p.o. pain meds. Patient denies nausea. Denies passing any gas or stool. Exam Vital Signs (past 8 hours): - 03/12/19 05:00 03/12/19 08:00 Temperature 99.3 F 98.4 F Pulse Rate 76 69 Respiratory Rate 16 18 Blood Pressure 128/69 106/59 L Pulse Oximetry 99 97 Oxygen Delivery Method Room Air Oxygen Flow Rate 0 Narrative Exam Narrative: GENERAL: Comfortable, no distress. Appears stated age. HENT: Normocephalic, atraumatic. Oral mucosa is pink and moist. CARDIOVASCULAR: Regular rate. No pedal edema. RESPIRATORY: Normal respiratory rate, breathing comfortably on room air. GASTROINTESTINAL: Abdomen soft and non-distended; dressings clean dry and intact; appropriate tenderness to palpation for postop day 1 GENITALURINARY: No flank tenderness. SKIN: Warm, dry, soft, appropriate color for ethnicity. No other lesions, rashes, or wounds. NEURO: Alert and Oriented X 3. No gross deficits PSYCH: Appropriate affect and mood. Objective Labs Result Diagrams: 03/12/19 04:45 03/12/19 04:45 Labs: Laboratory Results - last 24 hr 03/12/19 03/12/19 03/12/19 04:45 04:45 04:45 WBC 9.5 RBC 4.00 L Hgb 9.0 L Hct 29.5 L MCV 73.7 L MCH 22.4 L MCHC 30.4 RDW 24.9 H Plt Count 280 Neut % (Auto) 91.7 H Lymph % (Auto) 3.9 L [place] % (Auto) 4.3 Eos % (Auto) 0.0 L Baso % (Auto) 0.1 Neut # (Auto) 8700 H Lymph # (Auto) 400 L [place] # (Auto) 400 Eos # (Auto) 0 Baso # (Auto) 0 RBC Morphology See below Polychromasia 1+ H Poikilocytosis 1+ H Basophilic Stippling 1+ H Anisocytosis 2+ H Schistocytes 1+ H Sodium 138 Potassium 4.7 Chloride 110 H Carbon Dioxide 19 L BUN 20 Creatinine 1.90 H Estimated GFR 36.2 L BUN/Creatinine Ratio 10.5 Glucose 149 H Calcium 8.7 Magnesium 2.2 Assessment & Plan Assessment and plan (1) Adenocarcinoma, colon: Problem details: 63-year-old male postop day 1 status post laparoscopic-assisted colon resection. Overall he is doing well. Hemoglobin is stable, vitals are stable. Abdominal pain is moderately well controlled on p.o. pain meds. Plan: 1. Ambulate t.i.d. as tolerated 2. Clear liquid diet as tolerated 3. Leave Mendoza in for now, will plan to remove if patient is able to ambulate well today 4. Labs tomorrow 5. DVT PPI 6. Home meds 7. P.o. and IV pain meds as needed Current visit: No Status: Chronic (2) Anemia, blood loss: Problem details: As above Current visit: No Status: Acute (3) S/P colon resection: Problem details: As above Current visit: Yes Status: Acute Assessment & Plan narrative: As above Quality VTE Deep Vein Thrombosis/Pulmonary Embolism Present on Admission: No
[2019-03-12] MEDS: FLUTICASONE 120 SPRAY/16 GM SPRAY.SUSP NASAL ×2 (09:19→20:15)
[2019-03-12] MEDS: BRIMONIDINE 2% 1 EACH EYE-LEFT ×3 (09:19→20:15)
[2019-03-12] MEDS: DORZOLAMIDE 2% OPHTH 10 ML 1 DROPS EYE-LEFT ×2 (09:20→20:15)
[2019-03-12] MEDS: MORPHINE 4 MG/ML INJ IV ×2 (09:20→13:27)
[2019-03-12] MEDS: INFLUENZA VACCINE 0.5 ML SYRINGE IM (09:21)
[2019-03-12] MEDS: GABAPENTIN 300 MG CAPSULE PO ×2 (09:21→20:12)
[2019-03-12] MEDS: ENOXAPARIN 40 MG/0.4 ML SYRINGE SUBCUT (09:22)
--- NOTE | 2019-03-12 11:07 | CM.DANOTE ---
DCP: Case received, EMR reviewed and met with patient. Introduced self and role. Was able to meet with patient, as well as , Rosa, who was at bedside. Obtained baseline health and activity level from patient. DCP assessment/template, completed with information currently available. Patient is a 63 year old male who admitted yesterday afternoon to the care of the surgical team. PCP: Dr. Baez. Payer: confirmed: [employer]. Patient came to the hospital for a surgical procedure. He had a laparoscopic colon resection, secondary to a mass near his colon. Met with patient in his room. Alert and oriented, he was sitting up in bed. His , Rosa, also present. Patient is independent at home, driving, he works for the [employer]. He voiced no concerns regarding discharge home, is having some pain post surgery. is supportive', and will be able to assist patient with any needs. P: DCP to continue to follow. Patient should be able to go home when he is medically stable. Criselda Evans RN/Orthotic Technician
--- NOTE | 2019-03-12 11:14 | PM.CHAP ---
Nice visit with patient. Dealing well with new cancer diagnosis. Has good support system.
--- NOTE | 2019-03-12 13:05 | PT.IIE ---
Current Diagnoses Malignant neoplasm of colon, unspecified (03/11/19) Iron deficiency anemia secondary to blood loss (chronic) (03/11/19) Acquired absence of other specified parts of digestive tract (03/11/19) Surgery Performed Operation Date: 03/11/19 13:45 Actual Procedures p Laparoscopic colon resection(Left) - Tramaine Schafer MD Surgical History (Last Reviewed 03/05/19 @ 16:28 by Tramaine Schafer MD) History of back surgery (Acute) Hx of eye surgery (Acute) Hx of sinus surgery (Acute) Status post laparoscopic cholecystectomy Medical History (Last Reviewed 03/05/19 @ 16:28 by Tramaine Schafer MD) Adenocarcinoma, colon (Chronic ~02/2019) Anemia (Acute) Asthma (Chronic 02/23/11) Elevated prostate specific antigen (PSA) (Chronic 02/23/11) Gastroesophageal reflux disease without esophagitis (Chronic 02/23/11) Glaucoma (Chronic) Hyperlipidemia (Chronic 09/16/12) Seasonal allergies (Chronic) Physical Therapy Inpatient Evaluation/Re-Eval M1 PT/OT-IP Prior Functional Status Start: 03/12/19 08:59 Freq: NEEDED Status: Active Protocol: Document 03/12/19 12:23 AW (Rec: 03/12/19 13:04 AW [id number]) Medical Review Prior Functional Status Medical History Reviewed Yes Diet/Fluid Consistency Clear Liquids Communication Able to make needs known. 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 Mobility and Gait Independent in all regards, no assistive device. However, pt notes he has been more limited in ambulation distance recently due to labored breathing. He can climb a flight of stairs but finds it challenging due to breathing difficulty. Activities of Daily Living and IADL's Independent in all regards Social History Household Members spouse,children Living Arrangements House Number of Floors (Floors) One Floor Number of Stairs To Enter/Railing? 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 Typical work week is 50 hours. M2 PT-IP Current Condition Start: 03/12/19 08:59 Freq: NEEDED Status: Active Protocol: Document 03/12/19 12:23 AW (Rec: 03/12/19 13:04 AW [id number]) Physical Therapy Current Condition Current Condition Evaluation Date 03/12/19 Treatment Diagnosis s/p laparoscopic colon resection, colon cancer, impaired mobility Precautions Abdominal Surgery Precautions Log Roll,Lifting Restrictions, Gait Belt above Incisional Area Weight Bearing Status Weight Bearing Status Full Weight Bearing M3 PT-IP Subjective Start: 03/12/19 08:59 Freq: NEEDED Status: Active Protocol: Document 03/12/19 12:23 AW (Rec: 03/12/19 13:04 AW [id number]) Subjective Physical Therapy Visit Type Type Initial Evaluation Visit Start Time 11:55 Visit Stop Time 12:17 Total Visit Minutes 22 Notes Pt seen with spouse and daughters in room Number of CLEANING ASSOCIATE Visits 0 Physical Therapy Visit Comments Patient Comments Pt recently got up to chair, but is willing to mobilize with PT Patient Goals Pt hopes to discharge to home with family support Therapy Pain Assessment Pain When Pain Assessed During Mobility Pain Present Pain Present Pain Reported Location bilateral shoulders/upper back Intensity 7 Scale Used Numeric (1 - 10) Pain Management Techniques Re-positioning,Timing of Activity with Medications Abdomen Intensity 5 Scale Used Numeric (1 - 10) Pain Management Techniques Apply Cold,Re-positioning, Timing of Activity with Medications M4 PT-IP Mobility and Gait Start: 03/12/19 08:59 Freq: NEEDED Status: Active Protocol: Document 03/12/19 12:23 AW (Rec: 03/12/19 13:04 AW [id number]) PT-Bed Mobility Assessment Rolling Type of Rolling Log Rolling Level of Assist Contact Guard Assistance Supine to Sit Supine to Sit Contact Guard Assistance Sit to Supine Sit to Supine Contact Guard Assistance Scooting Scooting to Edge of Bed Standby Assistance PT-Transfer Assessment Sit to and From Stand Sit to and from Stand Contact Guard Assistance Equipment Transfer Assistive Device Gait Belt,Front Wheeled Walker Orthotic/Prosthetic Devices or Brace: No Transfers Transfer Destination Bed,Chair Transfer Ability Level of Assist Standby Assistance,Contact Guard Assistance Comments Mobility Comments Pt instructed in log roll for bed transfers. He was able to verbalize and execute strategy with CGA at most. Good attention to body positioning and minimizing twisting movement. He stood once using FWW and once with no AD CGA both attempts. Transfer to bed and to chair were SBA with pt demonstrating good control of descent. Gait Assessment Gait Gait Assistance Required: Standby Assistance Distance (Feet) 200 Able to Maintain Weight Bearing Status Yes During Gait Assistive Devices Assistive Device Gait Belt,Standard Walker Orthotic/Prosthetic Devices or Brace: No Gait Deviations General Gait Pattern Decreased Stride Length, Decreased Feet Clearance Factors Limiting Gait Function Factors Limiting Gait Function Decreased Strength,Pain Comments Gait Comments Pt ambulated 50 feet using FWW SBA and an additional 150 feet without assistive device SBA. He has poor foot clearance bilaterally but was able to increase stride and attend to heel strike in response to cues. PT-Balance Assessment Sitting Balance and Reactions Static Sitting Balance Ability Good Dynamic Sitting Balance Ability Good Standing Balance and Reactions Static Standing Balance Ability Good Dynamic Standing Balance Ability Good Device Used FWW M5 PT-IP Objective Assessments Start: 03/12/19 08:59 Freq: NEEDED Status: Active Protocol: Document 03/12/19 12:23 AW (Rec: 03/12/19 13:04 AW [id number]) Orientation Orientation/Cognition Level of Alertness Alert Orientation Name,Date,Place,Situation Language Function Ability No Deficits Noted Safety Awareness Understands Safety Issues Memory Description No Deficits Noted Gross Range of Motion Upper Extremity ROM Assessment Within Functional Limits Lower Extremity ROM Assessment Within Functional Limits Strength Upper Extremity Strength Assessment Bilaterally Impaired Shoulder 4/5 painful Lower Extremity Strength Assessment Bilaterally Impaired Knee 4/5 knee flexion Ankle 4+/5 DF Coordination Assessment Gross Coordination Gross Coordination WNL Sensation Assessment Sensation Gross Sensation WNL M6 PT-IP Treatment Start: 03/12/19 08:59 Freq: NEEDED Status: Active Protocol: Document 03/12/19 12:23 AW (Rec: 03/12/19 13:04 AW [id number]) Physical Therapy Treatment Education Education Provided Precautions,Weight Bearing Status,Post-Op Packet,Safety Other Treatments Other Treatment Performed Educated pt on PT plan of care , abdominal splinting for comfort with increased intraabdominal pressure, log roll for bed mobility, and lifting restrictions M7 PT-IP Assessment and Plan Start: 03/12/19 08:59 Freq: NEEDED Status: Active Protocol: Document 03/12/19 12:23 AW (Rec: 03/12/19 13:04 AW [id number]) PT Summary Assessment and Plan Potential Rehabilitation Potential Excellent Status of Condition at Evaluation Evolving Summary Impairments Pain,Strength,Bed Mobility, Transfers,Gait,Activity Tolerance Assessment Summary Pt is a 63yo man seen on POD1 following laparoscopic colon resection for cancer of the distal transverse colon. PLOF: Pt was independent in all regards, requiring no AD or assistance with ADL's. However , he does report increasing dyspnea with exertion over the past month. Previously, he was able to walk a couple of miles per day. CLOF: Pt required no more than CGA for log roll, transfers, or ambulation with and without FWW. He demonstrated good safety awareness and has an extremely supportive family. When medically cleared, pt will be safe to discharge home with family assist. Goals Bed Mobility Goal Independent Transfer Goal Independent Gait Goal Independent Gait Distance 200 Other Goals up/down two stairs using left railing CGA Frequency of Treatment Frequency Of Treatment Once a Day Treatment Plan Physical Therapy Treatment Plan Bed Mobility Training,Transfer Training,Gait Training, Therapeutic Exercise,Balance Retraining,Post Op Education, Discharge Planning,Hot or Cold Pack,Neuromuscular Re-ed, Coordination Retraining,Manual Therapy Recommendations To Nursing Amount of Assist Needed Standby Assistance Discharge Recommendations PT Discharge Recommendations Home with Assistance
--- NOTE | 2019-03-12 15:47 | PC.NURSE ---
Post-op: Oxycodone w/fair relief. Has received morphine x2 for pain control and it has been effective. Sl nausea this am which resolved. No use of antiemetics. Pt has been up to the chair x2 and amb in room, has also worked with PT. 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 Pt status changed to confidental and a Stop/Do not enter sign was placed on the door. In addition will keep curtain closed and door shut. Resting in bed at the moment. Cont w/poc.
[2019-03-12] MEDS: SODIUM CHLORIDE 0.9% 1,000 ML 100 ML IV (16:23)
[2019-03-12] MEDS: Tiotropium Bromide [Spiriva Respimat] 2 EACH INH (16:27)
[2019-03-12] MEDS: MONTELUKAST 10 MG TABLET PO (16:29)
[2019-03-12] MEDS: OXYCODONE IR 5 MG TABLET 10 MG PO (20:11)
[2019-03-12] MEDS: LATANOPROST 0.005% OPHTH 2.5 ML 1 DROPS EYE-LEFT (20:15)
[2019-03-13] VITALS (7 sets, daily range): BP systolic 109–152; BP diastolic 51–79; PULSE 69–88; RESP 16–20; TEMP 36.4–37.6; O2SAT 95–99
[2019-03-13] MEDS: SODIUM CHLORIDE 0.9% 1,000 ML 100 ML IV ×2 (02:05→14:19)
[2019-03-13] MEDS: OXYCODONE IR 5 MG TABLET 10 MG PO ×2 (03:05→12:46)
[2019-03-13 05:29] LABS: BUN Creatinine Ratio 10.7 (6-22); Blood Urea Nitrogen 16 mg/dL (9-20); Calcium 8.2 mg/dL (8.4-10.2); Carbon Dioxide 21 mmol/L (22-32); Chloride 114 mmol/L (98-107); Estimated Glomerular Filt Rate 47.6 mL/min (>60); Glucose 105 mg/dL (80-110); HEMOLYSIS < 15 (0-50); Magnesium 2.1 mg/dL (1.6-2.3); Potassium 4.2 mmol/L (3.4-5.1); Sodium 141 mmol/L (137-145)
[2019-03-13 05:34] LABS: Add Manual Diff / Slide Review NO; Basophils Absolute Auto 0 /uL (0-100); Basophils Percent Auto 0.5 % (0-2); Eosinophils Absolute Auto 0 /uL (0-450); Hemoglobin 7.4 g/dL (13.5-17.5); Lymphocytes Absolute Auto 1000 /uL (1100-4500); Lymphocytes Percent Auto 13.2 % (25-40); Mean Corpuscular HGB Conc 30.7 % (30-36); Mean Corpuscular Hemoglobin 22.8 PG (26-34); Mean Corpuscular Volume 74.4 fL (80-100); Monocytes Absolute Auto 600 /uL (0-900); Monocytes Percent Auto 7.7 % (3-14); Neutrophils Absolute Auto 6100 /uL (1500-7000); Neutrophils Percent Auto 78.6 % (50-75); Platelet Count 244 X10^3/uL (150-400); Red Blood Cell Count 3.25 X10^6/uL (4.5-5.9); White Blood Cell Count 7.7 X10^3/uL (4.5-11.0)
[2019-03-13 05:38] LABS: Hematocrit 24.2 % (41-53)
[2019-03-13 06:04] LABS: Anisocytosis 2+; Poikilocytosis 1+; Polychromasia 1+
[2019-03-13] MEDS: PANTOPRAZOLE 40 MG TABLET PO ×2 (06:13→20:19)
--- NOTE | 2019-03-13 07:15 | P.PN_ITS ---
Subjective Subjective Date Patient Seen: 03/13/19 Time Patient Seen: 09:41 Interval history: No acute events overnight. Pt had some nausea this morning. Has not passed any flatus since surgery. Exam Vital Signs (past 8 hours): - 03/13/19 00:00 03/13/19 05:06 Temperature 97.5 F L 98.5 F Pulse Rate 71 69 Respiratory Rate 18 16 Blood Pressure 109/51 L 118/59 L Pulse Oximetry 97 95 Oxygen Delivery Method Room Air Oxygen Flow Rate 0 Narrative Exam Narrative: GENERAL: Comfortable, no distress. Appears stated age. HENT: Normocephalic, atraumatic. Oral mucosa is pink and moist. CARDIOVASCULAR: Regular rate. No pedal edema. RESPIRATORY: Normal respiratory rate, breathing comfortably on room air. GASTROINTESTINAL: Abdomen soft; moderately distended; dressings removed during exam; incision is clean dry and intact; appropriate tenderness to palpation for postop day 2 GENITALURINARY: No flank tenderness. SKIN: Warm, dry, soft, appropriate color for ethnicity. No other lesions, rashes, or wounds. NEURO: Alert and Oriented X 3. No gross deficits PSYCH: Appropriate affect and mood. Objective Labs Result Diagrams: 03/13/19 04:45 03/13/19 04:45 Labs: Laboratory Results - last 24 hr 03/13/19 03/13/19 04:45 04:45 WBC 7.7 RBC 3.25 L Hgb 7.4 L Hct 24.2 L MCV 74.4 L MCH 22.8 L MCHC 30.7 RDW 25.0 H Plt Count 244 Neut % (Auto) 78.6 H Lymph % (Auto) 13.2 L [place] % (Auto) 7.7 Eos % (Auto) 0.0 L Baso % (Auto) 0.5 Neut # (Auto) 6100 Lymph # (Auto) 1000 L [place] # (Auto) 600 Eos # (Auto) 0 Baso # (Auto) 0 RBC Morphology See below Polychromasia 1+ H Poikilocytosis 1+ H Anisocytosis 2+ H Sodium 141 Potassium 4.2 Chloride 114 H Carbon Dioxide 21 L BUN 16 Creatinine 1.50 H Estimated GFR 47.6 L BUN/Creatinine Ratio 10.7 Glucose 105 Calcium 8.2 L Magnesium 2.1 Assessment & Plan Assessment and plan (1) S/P colon resection: Problem details: As above Current visit: Yes Status: Acute (2) Adenocarcinoma, colon: Problem details: 63-year-old male postop day 2 status post laparoscopic-assisted colon resection. Overall he is doing well. Hemoglobin 7.4 this AM, likely secondary to blood loss in OR and fluid hydration, vitals are stable. No return of bowel function. Type and screen, place one unit on hold Recheck CBC at noon Transfuse if <7hgb or patient symptomatic Mendoza out this AM Ambulate as tolerated; 20 minutes TID Clears PO, advance when patient passing gas Ok for DVT ppx Current visit: No Status: Chronic (3) Anemia, blood loss: Problem details: As above Current visit: No Status: Acute Quality VTE Deep Vein Thrombosis/Pulmonary Embolism Present on Admission: No
[2019-03-13] MEDS: ONDANSETRON 4 MG/2 ML INJ IV ×2 (08:06→13:11)
[2019-03-13] MEDS: MORPHINE 4 MG/ML INJ IV (08:06)
[2019-03-13] MEDS: ENOXAPARIN 40 MG/0.4 ML SYRINGE SUBCUT (08:07)
[2019-03-13] MEDS: GABAPENTIN 300 MG CAPSULE PO ×2 (08:08→20:14)
[2019-03-13] MEDS: FLUTICASONE 120 SPRAY/16 GM SPRAY.SUSP NASAL ×2 (09:29→20:13)
[2019-03-13] MEDS: DORZOLAMIDE 2% OPHTH 10 ML 1 DROPS EYE-LEFT ×2 (09:29→20:14)
[2019-03-13] MEDS: BRIMONIDINE 2% 1 EACH EYE-LEFT ×3 (09:29→20:17)
[2019-03-13 12:26] LABS: Hematocrit 27.5 % (41-53); Hemoglobin 8.5 g/dL (13.5-17.5); Mean Corpuscular HGB Conc 30.9 % (30-36); Mean Corpuscular Hemoglobin 23.1 PG (26-34); Mean Corpuscular Volume 74.8 fL (80-100); Platelet Count 265 X10^3/uL (150-400); Red Blood Cell Count 3.68 X10^6/uL (4.5-5.9); Red Cell Distribution Width 25.1 % (11.6-14.8); White Blood Cell Count 9.5 X10^3/uL (4.5-11.0)
--- NOTE | 2019-03-13 14:31 | PT.IPTN ---
Current Diagnoses Malignant neoplasm of colon, unspecified (03/11/19) Iron deficiency anemia secondary to blood loss (chronic) (03/11/19) Acquired absence of other specified parts of digestive tract (03/11/19) Surgery Performed Operation Date: 03/11/19 13:45 Actual Procedures p Laparoscopic colon resection(Left) - Tramaine Schafer MD Physical Therapy Treatment Note M2 PT-IP Current Condition Start: 03/12/19 08:59 Freq: NEEDED Status: Active Protocol: Document 03/12/19 12:23 AW (Rec: 03/12/19 13:04 AW [id number]) Physical Therapy Current Condition Current Condition Evaluation Date 03/12/19 Treatment Diagnosis s/p laparoscopic colon resection, colon cancer, impaired mobility Precautions Abdominal Surgery Precautions Log Roll,Lifting Restrictions, Gait Belt above Incisional Area Weight Bearing Status Weight Bearing Status Full Weight Bearing M3 PT-IP Subjective Start: 03/12/19 08:59 Freq: NEEDED Status: Active Protocol: Document 03/13/19 09:10 LJ (Rec: 03/13/19 14:30 LJ [id number]) Subjective Physical Therapy Visit Type Type Treatment Note Visit Start Time 09:10 Visit Stop Time 09:28 Total Visit Minutes 18 Number of CAR ATTENDANT Visits 1 Physical Therapy Visit Comments Patient Comments Pt in room with family. Recently got into chair but is willing to ambulate. Per nursing, pt is allowed to walk short distances only due to medical reasons stated by Dr. Phan PT-IP Mobility and Gait Start: 03/12/19 08:59 Freq: NEEDED Status: Active Protocol: Document 03/13/19 09:10 LJ (Rec: 03/13/19 14:30 LJ [id number]) PT-Transfer Assessment Sit to and From Stand Sit to and from Stand Contact Guard Assistance Equipment Transfer Assistive Device Gait Belt,Front Wheeled Walker Orthotic/Prosthetic Devices or Brace: No Transfers Transfer Destination Chair Transfer Ability Level of Assist Standby Assistance,Contact Guard Assistance,Minimal Assistance Comments Mobility Comments Pt able to transfer with CGA but requires Rudi for IV pole. Pt stood for several seconds prior to taking steps to let dizziness resolve. Gait Assessment Gait Gait Assistance Required: Standby Assistance,Minimum Assistance,1 Person Assist Distance (Feet) 150 Assistive Devices Assistive Device Gait Belt,Standard Walker Orthotic/Prosthetic Devices or Brace: No Gait Deviations General Gait Pattern Decreased Stride Length, Decreased Feet Clearance Factors Limiting Gait Function Factors Limiting Gait Function Decreased Strength,Pain Comments Gait Comments Pt ambulated in hallway ~150' Rudi for IV pole. Pt reported slight dizziness but not enough to prevent him from continuing. Still with poor foot clearance but improved with cueing. M5 PT-IP Objective Assessments Start: 03/12/19 08:59 Freq: NEEDED Status: Active Protocol: Document 03/12/19 12:23 AW (Rec: 03/12/19 13:04 AW [id number]) Orientation Orientation/Cognition Level of Alertness Alert Orientation Name,Date,Place,Situation Language Function Ability No Deficits Noted Safety Awareness Understands Safety Issues Memory Description No Deficits Noted Gross Range of Motion Upper Extremity ROM Assessment Within Functional Limits Lower Extremity ROM Assessment Within Functional Limits Strength Upper Extremity Strength Assessment Bilaterally Impaired Shoulder 4/5 painful Lower Extremity Strength Assessment Bilaterally Impaired Knee 4/5 knee flexion Ankle 4+/5 DF Coordination Assessment Gross Coordination Gross Coordination WNL Sensation Assessment Sensation Gross Sensation WNL M6 PT-IP Treatment Start: 03/12/19 08:59 Freq: NEEDED Status: Active Protocol: Document 03/12/19 12:23 AW (Rec: 03/12/19 13:04 AW [id number]) Physical Therapy Treatment Education Education Provided Precautions,Weight Bearing Status,Post-Op Packet,Safety Other Treatments Other Treatment Performed Educated pt on PT plan of care , abdominal splinting for comfort with increased intraabdominal pressure, log roll for bed mobility, and lifting restrictions M7 PT-IP Assessment and Plan Start: 03/12/19 08:59 Freq: NEEDED Status: Active Protocol: Document 03/13/19 09:10 [email or web address] (Rec: 03/13/19 14:30 LJ [id number]) PT Summary Assessment and Plan Potential Rehabilitation Potential Excellent Status of Condition at Evaluation Evolving Summary Impairments Pain,Strength,Bed Mobility, Transfers,Gait,Activity Tolerance Assessment Summary Pt safe with ambulation SBA using FWW. Decreased foot clearance and stride length should improve with pt further recovery and decrease in pain . Trial gait w/o AD. Frequency of Treatment Frequency Of Treatment Once a Day Treatment Plan Physical Therapy Treatment Plan Bed Mobility Training,Transfer Training,Gait Training, Therapeutic Exercise,Balance Retraining,Post Op Education, Discharge Planning,Hot or Cold Pack,Neuromuscular Re-ed, Coordination Retraining,Manual Therapy Recommendations To Nursing Amount of Assist Needed 1 Person Assist Discharge Recommendations PT Discharge Recommendations Home with Assistance
--- NOTE | 2019-03-13 16:00 | PC.NURSE ---
Post-op: Pt reports he is feeling a little better today, did sleep better last night. Received oxycodone and morphine once and states both meds were effective. Has some nausea when he is moving around. Did receive zofran x2 and this was also effective. BT's few only, distended, soft, feels bloated. Has been up amb twice and sat in the chair for several hours. Family at beside all day. MD in to see pt.
[2019-03-13] MEDS: Tiotropium Bromide [Spiriva Respimat] 2 EACH INH (18:14)
[2019-03-13] MEDS: MONTELUKAST 10 MG TABLET PO (18:15)
[2019-03-13] MEDS: LATANOPROST 0.005% OPHTH 2.5 ML 1 DROPS EYE-LEFT (20:11)
[2019-03-13] MEDS: TRAZODONE 50 MG TABLET PO (20:15)
--- NOTE | 2019-03-13 21:44 | PC.NURSE ---
Pt is A and O x 4, VSS. Denies pain. Ambulating to BR voiding clear yellow qs, after Mendoza pulled this am at 1000. Family in room. Able to eat and drink clear liquid diet and had a small BM this afternoon.
[2019-03-14] VITALS (7 sets, daily range): BP systolic 124–141; BP diastolic 65–75; PULSE 65–82; RESP 16–72; TEMP 36.4–37.4; O2SAT 95–99
[2019-03-14] MEDS: SODIUM CHLORIDE 0.9% 1,000 ML 100 ML IV ×2 (02:22→12:11)
[2019-03-14 05:38] LABS: BUN Creatinine Ratio 8.6 (6-22); Blood Urea Nitrogen 12 mg/dL (9-20); Calcium 8.3 mg/dL (8.4-10.2); Carbon Dioxide 21 mmol/L (22-32); Chloride 113 mmol/L (98-107); Estimated Glomerular Filt Rate 51.5 mL/min (>60); Glucose 96 mg/dL (80-110); HEMOLYSIS < 15 (0-50); Magnesium 1.8 mg/dL (1.6-2.3); Potassium 3.7 mmol/L (3.4-5.1); Sodium 141 mmol/L (137-145)
[2019-03-14] MEDS: PANTOPRAZOLE 40 MG TABLET PO ×2 (06:24→20:34)
[2019-03-14] MEDS: ACETAMINOPHEN 325 MG TABLET 650 MG PO (09:03)
[2019-03-14] MEDS: GABAPENTIN 300 MG CAPSULE PO ×2 (09:03→20:26)
[2019-03-14] MEDS: BRIMONIDINE 2% 1 EACH EYE-LEFT ×3 (09:03→20:25)
[2019-03-14] MEDS: ENOXAPARIN 40 MG/0.4 ML SYRINGE SUBCUT (09:03)
[2019-03-14] MEDS: FLUTICASONE 120 SPRAY/16 GM SPRAY.SUSP NASAL ×2 (09:04→20:25)
[2019-03-14] MEDS: DORZOLAMIDE 2% OPHTH 10 ML 1 DROPS EYE-LEFT ×2 (09:04→20:31)
[2019-03-14] MEDS: Tiotropium Bromide [Spiriva Respimat] 2 EACH INH (12:12)
--- NOTE | 2019-03-14 14:00 | PM.PNPO.1 ---
Subjective Subjective Date Patient Seen: 03/14/19 Time Patient Seen: 14:00 Interval history: Patient feeling better than yesterday. Has not had pain meds for 24 hours. Has been ambulating in the adair without much difficulty. Overall feeling much better. Has had 2 moderate-sized bowel movements today. No difficulty urinating. Exam Vital Signs (past 8 hours): - 03/14/19 08:00 03/14/19 09:03 Temperature 99.3 F 99.3 F Pulse Rate 75 Respiratory Rate 18 Blood Pressure 134/66 Pulse Oximetry 98 Oxygen Delivery Method Room Air Oxygen Flow Rate 0 Narrative Exam Narrative: Lungs are clear no rales or rhonchi. Heart regular rate and rhythm without murmur gallop. Abdomen is protuberant and distended. Soft. Hyperactive bowel tones. Incisions are all intact dry without drainage and no cellulitis. No unusual abdominal tenderness on exam. Objective Labs Result Diagrams: 03/13/19 12:17 03/14/19 04:58 Labs: Laboratory Results - last 24 hr 03/09/19 03/14/19 09:42 04:58 Sodium 141 Potassium 3.7 Chloride 113 H Carbon Dioxide 21 L BUN 12 Creatinine 1.40 H Estimated GFR 51.5 L BUN/Creatinine Ratio 8.6 Glucose 96 Calcium 8.3 L Magnesium 1.8 Crossmatch See Detail Assessment & Plan Post-op Postoperative Procedures: Procedures Operation Date: 03/11/19 13:45 Actual Procedures Side Surgeon p Laparoscopic colon resection Left Tramaine Schafer MD Postoperative status narrative: Patient is doing remarkably well. Change in hematocrit from preop is been minimal (2% from 29to27 today.) This small drop probably represents fluid shifts as well as a small amount intra-operative blood loss. Change probably clinically insignificant. Postoperative plan narrative: Will stop IV fluids and advance diet to full liquids. Suppository to stimulate more activity in his colon as it is somewhat distended. Overall doing quite well. May shower. Quality VTE Deep Vein Thrombosis/Pulmonary Embolism Present on Admission: No
[2019-03-14] MEDS: BISACODYL 10 MG SUPP PR (14:27)
--- NOTE | 2019-03-14 15:00 | PT.IPTN ---
Current Diagnoses Malignant neoplasm of colon, unspecified (03/11/19) Iron deficiency anemia secondary to blood loss (chronic) (03/11/19) Acquired absence of other specified parts of digestive tract (03/11/19) Surgery Performed Operation Date: 03/11/19 13:45 Actual Procedures p Laparoscopic colon resection(Left) - Tramaine Schafer MD Physical Therapy Treatment Note M2 PT-IP Current Condition Start: 03/12/19 08:59 Freq: NEEDED Status: Active Protocol: Document 03/12/19 12:23 AW (Rec: 03/12/19 13:04 AW [id number]) Physical Therapy Current Condition Current Condition Evaluation Date 03/12/19 Treatment Diagnosis s/p laparoscopic colon resection, colon cancer, impaired mobility Precautions Abdominal Surgery Precautions Log Roll,Lifting Restrictions, Gait Belt above Incisional Area Weight Bearing Status Weight Bearing Status Full Weight Bearing M3 PT-IP Subjective Start: 03/12/19 08:59 Freq: NEEDED Status: Active Protocol: Document 03/14/19 15:00 GGD (Rec: 03/14/19 15:40 GGD [id number]) Subjective Physical Therapy Visit Type Type Treatment Note Visit Start Time 14:48 Visit Stop Time 15:02 Total Visit Minutes 14 Number of GLAZIER STRUCTURAL GLASS Visits 2 Physical Therapy Visit Comments Patient Comments Pt states he has walked twice today. M4 PT-IP Mobility and Gait Start: 03/12/19 08:59 Freq: NEEDED Status: Active Protocol: Document 03/14/19 15:00 GGD (Rec: 03/14/19 15:40 GGD [id number]) PT-Bed Mobility Assessment Rolling Type of Rolling Log Rolling Level of Assist Independent Supine to Sit Supine to Sit Independent Sit to Supine Sit to Supine Independent Scooting Scooting to Edge of Bed Independent PT-Transfer Assessment Sit to and From Stand Sit to and from Stand Independent,Standby Assistance Equipment Transfer Assistive Device Gait Belt Orthotic/Prosthetic Devices or Brace: No Transfers Transfer Destination Bed Transfer Ability Level of Assist Independent,Standby Assistance Gait Assessment Gait Gait Assistance Required: Independent,Standby Assistance Distance (Feet) 600 Assistive Devices Assistive Device Gait Belt Factors Limiting Gait Function Factors Limiting Gait Function Decreased Activity Tolerance, Pain Stair Climbing Assessment Evaluation Level of Assist On Stairs Independent,Standby Assistance Devices Stair Climbing Assistive Devices Left Railing Technique/Endurance Stair Climbing Direction Ascend and Descend Stair Climbing Technique Step Over Step Number of Steps Climbed 3 Stair Climbing Set # Repetitions (reps) 1 M5 PT-IP Objective Assessments Start: 03/12/19 08:59 Freq: NEEDED Status: Active Protocol: Document 03/12/19 12:23 AW (Rec: 03/12/19 13:04 AW [id number]) Orientation Orientation/Cognition Level of Alertness Alert Orientation Name,Date,Place,Situation Language Function Ability No Deficits Noted Safety Awareness Understands Safety Issues Memory Description No Deficits Noted Gross Range of Motion Upper Extremity ROM Assessment Within Functional Limits Lower Extremity ROM Assessment Within Functional Limits Strength Upper Extremity Strength Assessment Bilaterally Impaired Shoulder 4/5 painful Lower Extremity Strength Assessment Bilaterally Impaired Knee 4/5 knee flexion Ankle 4+/5 DF Coordination Assessment Gross Coordination Gross Coordination WNL Sensation Assessment Sensation Gross Sensation WNL M6 PT-IP Treatment Start: 03/12/19 08:59 Freq: NEEDED Status: Active Protocol: Document 03/12/19 12:23 AW (Rec: 03/12/19 13:04 AW [id number]) Physical Therapy Treatment Education Education Provided Precautions,Weight Bearing Status,Post-Op Packet,Safety Other Treatments Other Treatment Performed Educated pt on PT plan of care , abdominal splinting for comfort with increased intraabdominal pressure, log roll for bed mobility, and lifting restrictions M7 PT-IP Assessment and Plan Start: 03/12/19 08:59 Freq: NEEDED Status: Active Protocol: Document 03/14/19 15:00 GGD (Rec: 03/14/19 15:40 GGD [id number]) PT Summary Assessment and Plan Summary Assessment Summary Pt improving with mobility. He was independent with bed mobility. He was safe and stable with gait and stair mobility. He had no LOB with gait without AD. Pt safe for home D/C when medically stable . Pt has met goal and has no skilled therapy needs. Frequency of Treatment Frequency Of Treatment Discharge Recommendations To Nursing Amount of Assist Needed Independent,Standby Assistance Discharge Recommendations PT Discharge Recommendations Home,Home with Assistance
[2019-03-14] MEDS: MONTELUKAST 10 MG TABLET PO (16:25)
[2019-03-14] MEDS: TRAZODONE 50 MG TABLET PO (20:26)
[2019-03-14] MEDS: LATANOPROST 0.005% OPHTH 2.5 ML 1 DROPS EYE-LEFT (20:35)
[2019-03-15 00:15] VITALS: BP 139/61; PULSE 69; RESP 19; TEMP 36.8; O2SAT 98
--- NOTE | 2019-03-15 03:46 | PC.NURSE ---
Addendum entered by Isela Vasquez R.N. 03/15/19 06:55: Pt had a moderate soft formed bowel movement overnight. Still no c/o pain, nausea, or vomiting. Ambulates independently. VSS stable, on RA. Original Note: Shift note: Pt independent in the room, no c/o pain, nausea, or vomiting. Reports some minimal flatus, still feels bloated, BT active. Pt has no complaints, allowing to sleep, call light in reach, pt can make needs known.
[2019-03-15 06:07] LABS: Add Manual Diff / Slide Review NO; Basophils Absolute Auto 0 /uL (0-100); Basophils Percent Auto 0.8 % (0-2); Eosinophils Absolute Auto 0 /uL (0-450); Eosinophils Percent Auto 0.6 % (2-4); Hemoglobin 7.6 g/dL (13.5-17.5); Lymphocytes Absolute Auto 900 /uL (1100-4500); Lymphocytes Percent Auto 17.5 % (25-40); Mean Corpuscular HGB Conc 31.6 % (30-36); Mean Corpuscular Hemoglobin 23.3 PG (26-34); Mean Corpuscular Volume 73.6 fL (80-100); Monocytes Absolute Auto 300 /uL (0-900); Monocytes Percent Auto 6.7 % (3-14); Neutrophils Absolute Auto 3800 /uL (1500-7000); Neutrophils Percent Auto 74.4 % (50-75); Platelet Count 227 X10^3/uL (150-400); Red Blood Cell Count 3.25 X10^6/uL (4.5-5.9); Red Cell Distribution Width 24.7 % (11.6-14.8); White Blood Cell Count 5.1 X10^3/uL (4.5-11.0)
[2019-03-15] MEDS: PANTOPRAZOLE 40 MG TABLET PO (06:12)
[2019-03-15 06:23] VITALS: BP 131/64; PULSE 71; RESP 16; TEMP 37; O2SAT 97
[2019-03-15 06:26] LABS: Anisocytosis 2+; Poikilocytosis 1+
[2019-03-15 06:27] LABS: Hypochromasia 1+
[2019-03-15 08:00] VITALS: BP 142/71; PULSE 68; RESP 18; TEMP 37.3; O2SAT 97
[2019-03-15] MEDS: BRIMONIDINE 2% 1 EACH EYE-LEFT (09:38)
[2019-03-15] MEDS: DORZOLAMIDE 2% OPHTH 10 ML 1 DROPS EYE-LEFT (09:39)
[2019-03-15] MEDS: MULTIVIT,CALC,MINS/IRON/FOLIC 1 TABLET 1 TAB PO (09:39)
[2019-03-15] MEDS: Tiotropium Bromide [Spiriva Respimat] 2 EACH INH (09:39)
[2019-03-15] MEDS: ENOXAPARIN 40 MG/0.4 ML SYRINGE SUBCUT (09:39)
[2019-03-15] MEDS: FLUTICASONE 120 SPRAY/16 GM SPRAY.SUSP NASAL (09:39)
[2019-03-15] MEDS: GABAPENTIN 300 MG CAPSULE PO (09:39)
[2019-03-15 12:00] VITALS: BP 128/60; PULSE 67; RESP 18; TEMP 36.8; O2SAT 99
--- NOTE | 2019-03-15 13:11 | P.DS_ITS ---
History of Present Illness History of Present Illness Date Patient Seen: 03/15/19 Time Patient Seen: 13:12 Chief complaint: Laparoscopic Colon Resection Narrative: The the patient is a gentleman admitted for resection of a distal transverse colon cancer. He had undergone outpatient bowel prep including oral antibiotics. Discharge Providers Provider Date of admission: 03/11/19 12:20 Discharge Date: 03/15/19 Primary care physician: Cruz Baez MD Consults: 03/11/19 21:58 Consult to Respiratory Therapy Evaluate & Treat Comment: s/p colon resection; h/o asthma Physician Instructions: Evaluate and treat 03/11/19 22:41 Consult to Discharge Planning Routine Comment: Consult to Physical Therapy Evaluate & Treat Comment: Mobilize Physician Instructions: Evaluate and Treat Consult to Respiratory Therapy Evaluate & Treat Comment: On chronic home meds Physician Instructions: Evaluate and treat Discharge provider: Tramaine Schafer MD Summary Hospital Course Discharge Diagnosis: Colon cancer. 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 Additional blood lost during his operative procedure. Glaucoma left eye chronic Gastroesophageal reflux disease chronic Chronic enlargement of the prostate Chronic asthma since childhood. Hospital Course: The patient underwent a laparoscopic resection of a large portion of his transverse and descending colon. He had a primary anastomosis. His postoperative course was quite smooth. His diet was gradually advanced and he began to have bowel function. He was discharged on a general diet to follow up in the office. He was discharged on DVT prophylaxis for another 10 days. He was instructed to take a multiple vitamin with minerals. And he was prescribed iron. He can resume his other medications. Status at Discharge Cognitive/behavioral status at discharge: oriented Functional status at discharge: independent ambulation Overall status at discharge: patient is progressing back to baseline Exam Vital Signs (past 8 hours): - 03/15/19 06:23 03/15/19 08:00 03/15/19 12:00 Temperature 98.6 F 99.1 F 98.2 F Pulse Rate 71 68 67 Respiratory Rate 16 18 18 Blood Pressure 131/64 142/71 H 128/60 Pulse Oximetry 97 97 99 Fraction of Inspired Oxygen 21 Oxygen Delivery Method Room Air Oxygen Flow Rate 0 Objective Labs Result Diagrams: 03/15/19 05:16 03/14/19 04:58 Labs: Laboratory Results - last 24 hr 03/15/19 05:16 WBC 5.1 RBC 3.25 L Hgb 7.6 L Hct 24.0 L MCV 73.6 L MCH 23.3 L MCHC 31.6 RDW 24.7 H Plt Count 227 Neut % (Auto) 74.4 Lymph % (Auto) 17.5 L [place] % (Auto) 6.7 Eos % (Auto) 0.6 L Baso % (Auto) 0.8 Neut # (Auto) 3800 Lymph # (Auto) 900 L [place] # (Auto) 300 Eos # (Auto) 0 Baso # (Auto) 0 RBC Morphology See below Hypochromasia 1+ H Poikilocytosis 1+ H Anisocytosis 2+ H Discharge Plan Discharge Plan Patient Disposition: Home Discharge comment: Your operation went well. You recovery has been remarkably smooth thus far. You remain anemic and you should take a multiple vitamin with minerals. Additionally, I prescribed iron for you. It will make your stools black. Discharge Med Rec/Prescriptions Prescriptions: New gabapentin 300 mg capsule 300 mg PO BID Qty: 20 RF: 0 enoxaparin [Lovenox] 40 mg/0.4 mL syringe 40 mg SUBCUT DAILY Qty: 4 RF: 0 ferrous sulfate 325 mg (65 mg iron) tablet 325 mg PO BID Qty: 60 RF: 0 hydrocodone-acetaminophen [[place]] 5-325 mg tablet 1 tab PO Q4-6H PRN (Reason: pain) Qty: 20 RF: 0 Continued latanoprost 0.005 % drops 1 drp OPHTH HS Qty: 0 RF: 0 fluticasone propionate 50 mcg/actuation spray,suspension 1 spray Intranasal BID Qty: 16 RF: 11 trazodone 50 mg tablet 50 mg PO HS Qty: 30 RF: 3 omeprazole 20 mg tablet,delayed release (DR/EC) 20 mg PO BID Qty: 60 RF: 3 tiotropium bromide [Spiriva Respimat] 2.5 mcg/actuation mist 2 puff INHALATION DAILY RF: 0 Dupixent 300 mg/2 mL syringe 300 mg SUBCUT Q2W RF: 0 montelukast [Singulair] 10 mg tablet 10 mg PO QPM RF: 0 dorzolamide 2 % drops 1 drp EYE-LEFT BID RF: 0 brimonidine 0.025 % drops 1 drp EYE-LEFT TID RF: 0 ipratropium-albuterol 0.5 mg-3 mg(2.5 mg base)/3 mL solution for nebulization 3 ml INHALATION Q6-8H PRN (Reason: Shortness Of Breath) RF: 0 fluticasone propion-salmeterol [Advair Diskus] 500-50 mcg/dose blister with device See Rx Instructions .ROUTE .COMPLEX RF: 0 albuterol sulfate 0.63 mg/3 mL solution for nebulization 0.63 mg INH Q4HP PRN (Reason: Shortness Of Breath) RF: 0 albuterol sulfate [Ventolin HFA] 90 mcg/actuation HFA aerosol inhaler 2 puff INH Q4HP PRN (Reason: Shortness Of Breath) RF: 0 inhaler,assist devices,access 1 unit inhalation DIRECTED RF: 0 Discontinued erythromycin 500 mg tablet 1,000 mg PO TID Qty: 6 RF: 0 neomycin 500 mg tablet 1 gram PO TID Qty: 6 RF: 0 Follow up/Referrals: Cruz Baez MD [Primary Care Provider] - Tramaine Schafer MD [Physician] - 1 Week (Call the office on Saturday for an appointment to see me the following Saturday or Saturday. If you have any problems after hours or on weekends please call our office and listen to the entire message. At the end you will be connected to the tobacco drier operator who will page the doctor on-call) Provider Discharge Instructions Diet: Diet as Tolerated Diet comment: Avoid dense vegetables in large quantities Activity: You may walk. No biking running or exercise. You may shower or bath. Avoid sex Skin/Wound/Dressing Care Report to your healthcare provider any signs of infection, such as:: chills, fever, increased pain, unusual drainage and unusual redness Visit Report/Discharge Packet Instructions: DI for Colectomy, [facility]: Wound Care Stand Alone Forms: Surgery Discharge Visit Report Forms: Patient Portal/API, Stroke Signs & Symptoms Discharge Data Primary Care Provider: Cruz Baez Discharges patient from system. Discharge Date/Time: 03/15/19 14:40 Quality VTE Deep Vein Thrombosis/Pulmonary Embolism Present on Admission: No
== END 2019-03-15 14:40 | disposition home or self-care (01) | DRG 330 ==
PROVIDERS: Surgery; Admitting Provider Specialist; Family Provider Surgery; PCP Internal Medicine; Visit Provider Specialist
PROC: 0DTE0ZZ Resection of Large Intestine, Open Approach (ICD-10-PCS; principal; 2019-03-11 13:45)
DX: C18.4 Malignant neoplasm of transverse colon (principal); D62 Acute posthemorrhagic anemia; J45.909 Unspecified asthma, uncomplicated; D63.0 Anemia in neoplastic disease; K21.9 Gastro-esophageal reflux disease without esophagitis
CPT/HCPCS: 36415; 44204; 80048; 80053; 82378; 83735; 85025; 85027; 86850; 86900; 86901; 90471; 90656; 94762; 97116; 97161; J0131; J0330; J1100; J1170; J1650; J2250; J2270; J2405; J2543; J2704; J2710; J3010; Q2038

== ENCOUNTER → 2019-06-08 09:47 | Outpatient (CLI) | payer OTHER, SELFPAY ==
[2019-03-11 12:34] VITALS: BMI 26.7
[2019-06-08 10:13] LABS: Add Manual Diff / Slide Review NO; Basophils Absolute Auto 0 /uL (0-100); Basophils Percent Auto 0.6 % (0-2); Eosinophils Absolute Auto 400 /uL (0-450); Eosinophils Percent Auto 7.5 % (2-4); Hematocrit 39.8 % (41-53); Hemoglobin 13.9 g/dL (13.5-17.5); Lymphocytes Absolute Auto 1700 /uL (1100-4500); Mean Corpuscular HGB Conc 34.8 % (30-36); Mean Corpuscular Hemoglobin 31.3 PG (26-34); Monocytes Absolute Auto 400 /uL (0-900); Monocytes Percent Auto 7.3 % (3-14); Neutrophils Absolute Auto 3000 /uL (1500-7000); Neutrophils Percent Auto 54.6 % (50-75); Platelet Count 220 X10^3/uL (150-400); Red Blood Cell Count 4.42 X10^6/uL (4.5-5.9); Red Cell Distribution Width 19.6 % (11.6-14.8); White Blood Cell Count 5.5 X10^3/uL (4.5-11.0)
[2019-06-08 10:27] LABS: Alanine Aminotransferase 30 IU/L (<50); Albumin 4.6 g/dL (3.5-5.0); Albumin Globulin Ratio 1.5 (1.0-2.8); Alkaline Phosphatase 98 U/L (38-126); Aspartate Aminotransferase 31 IU/L (17-59); BUN Creatinine Ratio 10.7 (6-22); Bilirubin Total 0.5 mg/dL (0.2-1.3); Blood Urea Nitrogen 15 mg/dL (9-20); Calcium 9.5 mg/dL (8.4-10.2); Carbon Dioxide 27 mmol/L (22-32); Chloride 111 mmol/L (98-107); Estimated Glomerular Filt Rate 51.4 mL/min (>60); Glucose 96 mg/dL (80-110); HEMOLYSIS < 15 (0-50); Potassium 4.8 mmol/L (3.4-5.1); Sodium 144 mmol/L (137-145); Total Protein 7.6 g/dL (6.3-8.2)
[2019-06-08 10:57] LABS: Carcinoembryonic Antigen 2.5 ng/mL (0.1-3.0)
== END ==
PROVIDERS: PCP Internal Medicine; Visit Provider Internal Medicine Hematology & Oncology
DX: C18.9 Malignant neoplasm of colon, unspecified (principal)
CPT/HCPCS: 36415; 80053; 82378; 85025

== ENCOUNTER 2019-07-07 06:32 | Day surgery (SDC) | payer OTHER, SELFPAY ==
[2019-03-11 12:34] VITALS: BMI 26.7
--- NOTE | 2019-07-07 | PATH_ITS ---
[facility] Accession Number: [id number] . 01 Material submitted: . colon - COLON ANASTOMOSIS BIOPSY AT 90 CM . 02 Diagnosis: Colon Anastomosis Biopsy At 90 CM: Superficial portions of colorectal mucosa with scattered benign lymphoid aggregates and small regions of inflamed granulation tissue, consistent with anastomosis site. Negative for dysplasia or malignancy. [facility] 07/08/2019 1524 Local . 02 Electronically signed: . Sarah Zapata MD, Pathologist NPI- [id number] . 01 Gross description: . COLON ANASTOMOSIS BIOPSY AT 90 CM: Received in formalin are multiple fragment(s) of ag, soft tissue measuring 0.1 x 0.1 x 0.1 cm to 0.2 x 0.2 x 0.2 cm submitted entirely in 1 cassette(s) /DM 07/07/20192036 Local . 02 Pathologist provided ICD-10: C18.9 . 02 CPT . [id number] Performed at: 01 [facility] [address], [place], [place] [id number] MD Jean-Paul Rutherford MD Phone: [phone] Performed at: 02 [facility] [address] [place], [place] [id number] MD Karla Ribera MD Phone: [phone]
[2019-07-07 07:10] VITALS: BMI 27.8
[2019-07-07 07:14] VITALS: BP 140/78; PULSE 87; RESP 16; TEMP 36.4; O2SAT 96
[2019-07-07] MEDS: SODIUM CHLORIDE 0.9% 1,000 ML 84 ML IV (07:30)
--- NOTE | 2019-07-07 08:18 | PM.HP.1 ---
History of Present Illness History of Present Illness Date Patient Seen: 07/07/19 Time Patient Seen: 08:10 Chief complaint: [id number] Narrative: The patient is a gentleman here for a colonoscopy within 6 months of his resection for colon cancer involving his distal transverse colon. He had localized lymphatic invasion before T nodes were negative and has stage II disease felt to be high risk and is on oral chemotherapy. He is little nauseated with it. Is otherwise feeling well. Patient History Medical History Adenocarcinoma, colon (Chronic ~02/2019) Anemia (Acute) Asthma (Chronic 02/23/11) Elevated prostate specific antigen (PSA) (Chronic 02/23/11) Gastroesophageal reflux disease without esophagitis (Chronic 02/23/11) Glaucoma (Chronic) Hyperlipidemia (Chronic 09/16/12) Seasonal allergies (Chronic) Surgical History History of back surgery (Acute) History of colectomy (Acute) Hx of eye surgery (Acute) Hx of sinus surgery (Acute) Status post laparoscopic cholecystectomy Family & Social History Family History Mother Carcinoid tumor Social History: household members spouse,children Tobacco & Substance use: Smoking Status Never smoker alcohol intake never Substance Use Type does not use Meds Home Medications and Allergies Home Medications Medication Instructions Recorded Confirmed Type latanoprost 1 drp EYE-LEFT BEDTIME #0 07/30/16 07/07/19 History fluticasone propion-salmeterol See Rx Instructions .ROUTE .COMPLEX 01/16/18 07/07/19 History [Advair Diskus] fluticasone propionate 1 spray INTRANASAL BID #16 gm 07/15/18 07/07/19 Rx trazodone 50 mg PO HS #30 tab 09/10/18 07/07/19 Rx omeprazole 20 mg PO BID #60 tab 12/22/18 07/07/19 Rx montelukast 10 mg tablet 10 mg PO QPM 02/12/19 07/07/19 History brimonidine 0.025 % eye drops 1 drp EYE-LEFT TID ml 03/05/19 07/07/19 History dorzolamide 2 % eye drops 1 drp EYE-LEFT BID ml 03/05/19 07/07/19 History ipratropium 0.5 mg-albuterol 3 mg 3 ml INHALATION Q6-8H PRN 03/05/19 07/07/19 History (2.5 mg base)/3 mL nebulization soln albuterol sulfate 0.63 mg INH Q4HP PRN 03/09/19 07/07/19 History inhaler,assist devices,access 1 unit INHALATION DIRECTED 03/09/19 07/02/19 History albuterol sulfate 90 mcg/actuation 2 puff INHALATION Q4HP PRN #18 gram 04/15/19 07/07/19 Rx aerosol inhaler capecitabine [Xeloda] 1,000 mg PO BID #56 tab 04/27/19 07/07/19 Rx capecitabine [Xeloda] 150 mg PO BID #28 tab 04/27/19 07/07/19 Rx lorazepam [Ativan] 0.5 mg PO Q8H PRN #60 tab 04/27/19 07/07/19 Rx ondansetron HCl [Zofran] 4 mg PO Q6H #60 tab 04/27/19 07/07/19 Rx ferrous sulfate 325 mg PO DAILY 07/07/19 07/07/19 History Allergies Allergy/AdvReac Type Severity Reaction Status Date / Time aspirin [ASPIRIN] Allergy Unknown CAN'T TAKE Verified 07/07/19 07:06 SECONDARY TO ASTHMA Review of Systems Review of Systems Narrative: No chest pain heart problems black or bloody bowel movement seizures or blackouts. No breathing issues at this time though he does use inhalers Exam Vital Signs (past 8 hours): - 07/07/19 07:14 Temperature 97.6 F Pulse Rate 87 Respiratory Rate 16 Blood Pressure 140/78 Pulse Oximetry 96 Oxygen Delivery Method Room Air Narrative Exam Narrative: Pleasant cooperative patient no apparent distress. Lungs are clear to auscultation. No rales or rhonchi. Heart regular rate and rhythm no murmur gallop. Abdomen is soft nontender without mass. No obvious hernias. Mid abdominal scar noted along with a diastasis recti. Patient is alert and oriented x3. Assessment & Plan Assessment & Plan narrative: The patient for a screening colonoscopy. I have discussed the procedure with them. Risks of bleeding, perforation which would necessitate major operation, failure to find remove all lesions, the potential tattoo were all discussed. All questions were answered. They wished to proceed.
--- NOTE | 2019-07-07 08:22 | PM.PREOP ---
Pre-operative Note Interval Note History & Physical reviewed/Exam performed by Physician: Yes Changes to H&P: No ASA Class (for procedural sedation): II
[2019-07-07] MEDS: fentaNYL 250 MCG/5 ML INJ IV (08:42)
[2019-07-07] MEDS: MIDAZOLAM 5 MG/5 ML VIAL IV (08:42)
--- NOTE | 2019-07-07 08:58 | PM.OP.ENDO ---
Operative Date/Time/Diagnoses Date of procedure: 07/07/19 Time of procedure: 08:58 Pre-op diagnosis: History of colon cancer. Post resection of his left colon. First exam since operation. Post-op diagnosis: same (Irregularity at the anastomosis and visible suture material. Internal hemorrhoids at the anal verge.) Procedure & Clinicians Study performed: Colonoscopy with cold biopsy Same procedure as scheduled: Yes Indications: Surveillance after colon resection. Meeting ASCO guidelines Surgeon: Tramaine Schafer Procedure Notes SCOAP/Timeout: Performed Procedure in detail: The patient was placed in the left lateral decubitus position and underwent IV sedation directed by the surgeon consisting of fentanyl and Versed. Digital exam was unremarkable. No mass in the prostate was felt.. The scope was inserted and advanced through the rectum into the remaining. No lesions were seen except an occasional diverticulum.. The cecum was reached identified by the ileocecal valve . The scope was gradually brought out. The anastomosis was identified at about 90 cm from the anal verge. There were some heaped up areas of tissue at the anastomosis that I suspect related to foreign body reaction from visible suture. Even so I took numerous random biopsies of the region. No other polyps or lesions were seen.. The scope ultimately was retroflexed in the rectum. The appearance was fairly normal though as I brought the scope through the anal canal the patient did have hemorrhoids in that region. There were no ulcerations however.. The scope was removed and the patient tolerated the procedure well. The prep was very good. Scope withdrawal time: 7 minutes(11 total) Sedation minutes: 25 Findings: diverticulosis and other findings (Suture material at the anastomosis) Specimen(s): other (Anastomotic biopsies) Complications: none Post-procedure Recommendations: Colonscopy in 1 year Follow up: months (Twelve) Disposition: PACU
[2019-07-07 09:02] VITALS: BP 132/75; PULSE 69; RESP 13; TEMP 36.3; O2SAT 95
[2019-07-07 09:07] VITALS: BP 125/73; PULSE 74; RESP 15; O2SAT 94
[2019-07-07 09:12] VITALS: BP 132/70; PULSE 78; RESP 17; O2SAT 95
[2019-07-07 09:16] VITALS: BP 134/72; PULSE 70; RESP 14; O2SAT 95
--- NOTE | 2019-07-07 09:57 | SUR.PHASEII ---
Pt ready t go awaiting d/c order from .
--- NOTE | 2019-07-07 11:27 | SUR.PHASEII ---
Late entry: MD finally with d/c order. Pt left in stable condition.
== END 2019-07-07 10:10 | disposition home or self-care (01) ==
PROVIDERS: PCP Internal Medicine; Referring Provider Specialist; Visit Provider Specialist
PROC: 0DJD8ZZ Inspection of Lower Intestinal Tract, Via Natural or Artificial Opening Endoscopic (ICD-10-PCS; CPT 45378; principal; 2019-07-07 07:45)
DX: C18.4 Malignant neoplasm of transverse colon (principal); Z90.49 Acquired absence of other specified parts of digestive tract; K57.30 Diverticulosis of large intestine without perforation or abscess without bleeding; K64.8 Other hemorrhoids
CPT/HCPCS: 45380; 99152; 99153; J2250; J3010

== ENCOUNTER → 2019-07-17 08:55 | Outpatient (CLI) | payer OTHER, SELFPAY ==
[2019-03-11 12:34] VITALS: BMI 26.7
[2019-07-17 09:45] LABS: Add Manual Diff / Slide Review NO; Basophils Absolute Auto 0 /uL (0-100); Basophils Percent Auto 0.6 % (0-2); Eosinophils Absolute Auto 400 /uL (0-450); Eosinophils Percent Auto 8.6 % (2-4); Hematocrit 32.8 % (41-53); Hemoglobin 12.2 g/dL (13.5-17.5); Lymphocytes Absolute Auto 1700 /uL (1100-4500); Lymphocytes Percent Auto 34.7 % (25-40); Mean Corpuscular HGB Conc 37.3 % (30-36); Mean Corpuscular Hemoglobin 36.5 PG (26-34); Monocytes Absolute Auto 300 /uL (0-900); Neutrophils Absolute Auto 2400 /uL (1500-7000); Neutrophils Percent Auto 49.1 % (50-75); Platelet Count 218 X10^3/uL (150-400); Red Blood Cell Count 3.35 X10^6/uL (4.5-5.9); Red Cell Distribution Width 22.1 % (11.6-14.8)
[2019-07-17 09:57] LABS: Alanine Aminotransferase 26 IU/L (<50); Albumin 4.3 g/dL (3.5-5.0); Albumin Globulin Ratio 1.5 (1.0-2.8); Alkaline Phosphatase 82 U/L (38-126); Aspartate Aminotransferase 27 IU/L (17-59); BUN Creatinine Ratio 12.7 (6-22); Bilirubin Total 0.7 mg/dL (0.2-1.3); Blood Urea Nitrogen 19 mg/dL (9-20); Calcium 9.2 mg/dL (8.4-10.2); Carbon Dioxide 21 mmol/L (22-32); Chloride 110 mmol/L (98-107); Estimated Glomerular Filt Rate 47.4 mL/min (>60); Globulin 2.8 g/dL (1.7-4.1); Glucose 115 mg/dL (80-110); HEMOLYSIS < 15 (0-50); Potassium 4.1 mmol/L (3.4-5.1); Sodium 142 mmol/L (137-145); Total Protein 7.1 g/dL (6.3-8.2)
[2019-07-17 10:07] LABS: Anisocytosis 2+
[2019-07-17 10:28] LABS: Carcinoembryonic Antigen 2.6 ng/mL (0.1-3.0); Prostate Specific Antigen 9.68 ng/mL (0.10-4.00)
== END ==
PROVIDERS: Internal Medicine Hematology & Oncology; PCP Internal Medicine; Referring Provider Urology; Visit Provider Urology
DX: R97.20 Elevated prostate specific antigen [PSA] (principal); C18.9 Malignant neoplasm of colon, unspecified
CPT/HCPCS: 36415; 80053; 82378; 84153; 85025

== ENCOUNTER 2019-11-19 09:54 | Emergency (ER) | payer OTHER, SELFPAY ==
[2019-03-11 12:34] VITALS: BMI 26.7
[2019-11-19 10:00] VITALS: BP 137/76; PULSE 73; RESP 20; TEMP 36.7; O2SAT 98; BMI 29.7
[2019-11-19 12:00] VITALS: BP 149/77; PULSE 60; O2SAT 99
--- NOTE | 2019-11-19 12:03 | DI.RAD.S_ITS ---
PROCEDURE: XR CHEST 2V INDICATIONS: sob, asthma TECHNIQUE: 2 views of the chest were acquired. COMPARISON: [facility], , CHEST 2 VIEW, 05/31/2017, 12:26. FINDINGS: Surgical changes and devices: None. Lungs and pleura: Lungs are clear. No pleural effusions or pneumothorax. Mediastinum: Mediastinal contours are normal. Heart size is normal. Bones and chest wall: No suspicious bony abnormalities. Soft tissues appear unremarkable. IMPRESSION: No acute cardiopulmonary process demonstrated radiographically. Dictated by: Damian Israel M.D. on 11/19/2019 at 12:20 Approved by: Damian Israel M.D. on 11/19/2019 at 12:21
--- NOTE | 2019-11-19 12:08 | ED_ITS ---
HPI - Asthma <Angela Brito, TUBE CLEANING OPERATOR-BC - Last Filed: 11/19/19 14:11> General Chief Complaint: Asthma Stated Complaint: Having asthma attacks, used nebulizer 5x yesterday Time Seen by Provider: 11/19/19 11:53 Source: patient Mode of arrival: Ambulatory Limitations: no limitations History of Present Illness HPI Narrative: The patient is a 64-year-old male nonsmoker with history of asthma who presents with a chief complaint of an asthma exacerbation. He states that he is becoming increasingly wheezing, had to use his nebulizer 5 times yesterday. He he denies any fevers or productive cough, but states he does have a dry cough. He denies any abdominal pain nausea vomiting or diarrhea. He denies any chest pain. He states at times he feels incredibly tight, then uses a nebulizer, then feels wheezy. He also complains of sinus pressure for the past 2-3 weeks, worse when he leans forward radiates to his jaw. He complains of different colored nasal drainage and states he has a history of sinus issues and sinus infections. He denies any known exposure to coronavirus, but his daughter works in healthcare and lives with him. He denies any ear pain or sore throat. He states he has been on steroids many times for his asthma and feels like he might be at that spot again. For his sinus pressure, he has tried NeilMed sinus rinse as well as Flonase and allergy medicine. He states that the pain radiates to his jaw is worse when he leans forward. Related Data Home Medications Medication Instructions Recorded Confirmed latanoprost 1 drp EYE-LEFT BEDTIME #0 07/30/16 07/07/19 fluticasone propion-salmeterol See Rx Instructions .ROUTE .COMPLEX 01/16/18 07/07/19 [Advair Diskus] montelukast 10 mg tablet 10 mg PO QPM 02/12/19 07/07/19 brimonidine 0.025 % eye drops 1 drp EYE-LEFT TID ml 03/05/19 07/07/19 dorzolamide 2 % eye drops 1 drp EYE-LEFT BID ml 03/05/19 07/07/19 ipratropium 0.5 mg-albuterol 3 mg 3 ml INHALATION Q6-8H PRN 03/05/19 07/07/19 (2.5 mg base)/3 mL nebulization soln albuterol sulfate 0.63 mg INH Q4HP PRN 03/09/19 07/07/19 inhaler,assist devices,access 1 unit INHALATION DIRECTED 03/09/19 07/02/19 ferrous sulfate 325 mg PO DAILY 07/07/19 07/07/19 Previous Rx's Medication Instructions Recorded fluticasone propionate 1 spray INTRANASAL BID #16 gm 07/15/18 capecitabine [Xeloda] 1,000 mg PO BID #56 tab 04/27/19 capecitabine [Xeloda] 150 mg PO BID #28 tab 04/27/19 lorazepam [Ativan] 0.5 mg PO Q8H PRN #60 tab 04/27/19 ondansetron HCl [Zofran] 4 mg PO Q6H #60 tab 04/27/19 omeprazole 20 mg tablet,delayed 20 mg PO BID #180 tab 08/18/19 release trazodone 50 mg tablet 50 mg PO HS #90 tab 08/18/19 albuterol sulfate 90 mcg/actuation 2 puff INHALATION Q4HP PRN #18 gram 10/21/19 aerosol inhaler amoxicillin-pot clavulanate 1 tab PO BID #14 tab 11/19/19 prednisone 40 mg PO DAILY 4 Days #8 tab 11/19/19 Allergies Allergy/AdvReac Type Severity Reaction Status Date / Time aspirin [ASPIRIN] Allergy Unknown CAN'T TAKE Verified 07/07/19 07:06 SECONDARY TO ASTHMA Review of Systems <Angela Brito, TUBE CLEANING OPERATOR-BC - Last Filed: 11/19/19 14:11> Review of Systems Narrative: GENERAL: Denies chills, fatigue, malaise, fever, sweats. HEENT: See HPI RESPIRATORY: See HPI CARDIOVASCULAR: Denies chest pain, palpitations, orthopnea, edema, GASTROINTESTINAL: Denies nausea, vomiting, abdominal pain, diarrhea, constipation, melena. : Denies dysuria, frequency, incontinence, hematuria, urinary retention. MUSCULOSKELETAL: denies weakness, joint pain, or bony pain SKIN: Denies rash, skin lesions, or other NEUROLOGIC: Denies weakness, headache, numbness, change in speech, confusion, seizures, incoordination. PSYCHIATRIC: No concerning psychosocial issues. 12 point review of systems is negative except for those stated above Patient History <SINA Nj - Last Filed: 11/19/19 14:11> Medical History Adenocarcinoma, colon (Chronic ~02/2019) Anemia (Acute) Asthma (Chronic 02/23/11) Elevated prostate specific antigen (PSA) (Chronic 02/23/11) Gastroesophageal reflux disease without esophagitis (Chronic 02/23/11) Glaucoma (Chronic) Hyperlipidemia (Chronic 09/16/12) Seasonal allergies (Chronic) Surgical History History of back surgery (Acute) History of colectomy (Acute) Hx of eye surgery (Acute) Hx of sinus surgery (Acute) Status post laparoscopic cholecystectomy Family History Mother Carcinoid tumor Social History marital status: household members: spouse and children occupational status: employed Smoking Status: Never smoker alcohol intake: never substance use type: does not use Smoking Status: Never smoker Substance Use Type: does not use Exam <SINA Nj - Last Filed: 11/19/19 14:11> Narrative Exam Narrative: GENERAL: This is a well-nourished, well-developed patient, in no acute distress HEAD: Atraumatic. Normocephalic. Since sinus pain to palpation EYES: Pupils equal round and reactive. Extraocular motions intact. No scleral icterus. No injection or drainage. ENT: Nose without bleeding, purulent drainage or septal hematoma. Throat without erythema, tonsillar hypertrophy or exudate. Uvula midline. Airway patent. Cobblestoning noted back of throat. Bilateral TMs pearly casillas. NECK: Trachea midline. No JVD or lymphadenopathy. Supple, nontender, no meningeal signs. CARDIOVASCULAR: Regular rate and rhythm RESPIRATORY: Clear to auscultation. Breath sounds equal bilaterally. No wheezes, rales, or rhonchi. Dry cough. No increased respiratory effort. No accessory muscle use. Speaking full sentences. GASTROINTESTINAL: Abdomen soft, non-tender, nondistended. No hepato- splenomegaly, or palpable masses. No guarding. EXTREMITIES: No clubbing, cyanosis, or edema. No joint tenderness, effusion, or edema noted. BACK: Nontender without deformity or crepitance. No flank tenderness. NEURO: AOx3. SKIN: No rash or erythema on visible skin Initial Vital Signs Initial Vital Signs: Vital Signs Temperature 98.0 F 11/19/19 10:00 Pulse Rate 73 11/19/19 10:00 Respiratory Rate 20 11/19/19 10:00 Blood Pressure 137/76 11/19/19 10:00 Pulse Oximetry 98 11/19/19 10:00 <Melody Tidwell DO - Last Filed: 11/19/19 18:54> Initial Vital Signs Initial Vital Signs: Vital Signs Temperature 98.0 F 11/19/19 10:00 Pulse Rate 73 11/19/19 10:00 Respiratory Rate 20 11/19/19 10:00 Blood Pressure 137/76 11/19/19 10:00 Pulse Oximetry 98 11/19/19 10:00 Scores <SINA Nj - Last Filed: 11/19/19 14:11> GCS Hannah coma scale eye opening: Spontaneous Jefferson coma scale verbal response: Orientated Jefferson coma scale motor response: Obey commands Hannah coma scale total score: 15 Course <SINA Nj - Last Filed: 11/19/19 14:11> Orders Ordered: ED Orders 11/19/19 12:03 XR chest 2V Stat RT Consult Eval and Treat NOW Discontinued Medications Prednisone (Deltasone) 40 mg PO NOW ONE Stop: 11/19/19 12:04 Last Admin: 11/19/19 12:58 Dose: 40 mg Documented by: JOSE MIGUEL Vital Signs Vital signs: Vital Signs - 8 hr 11/19/19 12:00 11/19/19 13:11 11/19/19 14:00 Pulse Rate 60 56 L 59 L Respiratory Rate 18 19 Blood Pressure 119/67 Blood Pressure [Right Arm] 149/77 H 127/74 Pulse Oximetry 99 98 100 <Melody Tidwell DO - Last Filed: 11/19/19 18:54> Orders Ordered: ED Orders 11/19/19 12:03 XR chest 2V Stat RT Consult Eval and Treat NOW Discontinued Medications Prednisone (Deltasone) 40 mg PO NOW ONE Stop: 11/19/19 12:04 Last Admin: 11/19/19 12:58 Dose: 40 mg Documented by: JOSE MIGUEL Vital Signs Vital signs: Vital Signs - 8 hr 11/19/19 12:00 11/19/19 13:11 11/19/19 14:00 Pulse Rate 60 56 L 59 L Respiratory Rate 18 19 Blood Pressure 119/67 Blood Pressure [Right Arm] 149/77 H 127/74 Pulse Oximetry 99 98 100 [facility] - Asthma <SINA Nj - Last Filed: 11/19/19 14:11> Imaging Data Chest x-ray: Radiologist's Impression: [address] [place] [id number] XRay Report Signed Patient: Jersey Alfaro RMR#: [id number] : [id number]:[id number] Age/Sex: 64 / MDate of Service: 11/19/19 Loc: ED Accession Number: [id number] Procedure: XR chest 2V Ordering Provider: Angela Brito PROCEDURE: XR CHEST 2V INDICATIONS: sob, asthma TECHNIQUE: 2 views of the chest were acquired. COMPARISON: [facility], , CHEST 2 VIEW, 05/31/2017, 12:26. FINDINGS: Surgical changes and devices: None. Lungs and pleura: Lungs are clear. No pleural effusions or pneumothorax. Mediastinum: Mediastinal contours are normal. Heart size is normal. Bones and chest wall: No suspicious bony abnormalities. Soft tissues appear unremarkable. IMPRESSION: No acute cardiopulmonary process demonstrated radiographically. Dictated by: Damian Israel M.D. on 11/19/2019 at 12:20 Approved by: Damian Israel M.D. on 11/19/2019 at 12:21 [facility] Narrative Medical decision making narrative: The patient is a 64-year-old male with history of asthma who presents with a chief complaint of worsening asthma. Used his nebulizer fiber 6 times yesterday. He is in no acute distress in the emergency department, oxygenating well and has a negative chest x-ray. He feels improved today too. However he has had sinus pressure for the past 2-3 weeks, with purulent nasal discharge as well as pain radiating to his jaw and worse when he leans forward. This has not responded to Flonase, Madi med sinus rinse, allergy medications etcetera. This will initiate treatment for bacterial sinusitis given the duration of his symptoms and severity of his symptoms with Augmentin. We placed him on a prednisone burst for his asthma. I discussed at length the importance of following up with primary care provider coming back to the emergency department for any acute concerns. The patient did receive coronavirus testing as he is at increased risk due to family working in healthcare and his status of asthma. I discussed at length acting as though he was sick until we get results. Patient has no questions or concerns upon discharge and states understanding of return precautions as well as follow-up care. Discharge Plan Departure Patient Disposition: Home Clinical Impression: Asthma Qualifiers: Asthma severity: unspecified severity Asthma persistence: unspecified Asthma complication type: with acute exacerbation Qualified Code(s): J45.901 - Unspecified asthma with (acute) exacerbation Sinusitis Qualifiers: Sinusitis location: unspecified location Chronicity: acute Recurrence: non- recurrent Qualified Code(s): J01.90 - Acute sinusitis, unspecified Discharge Date/Time: 11/19/19 14:16 Instructions: DI for Asthma -- Adult, DI for Sinusitis Activity Restrictions/Additional Instructions: Thank you for trusting us with your care today. Your chest x-ray shows no acute findings such as pneumonia. Given your increased wheezing and shortness of breath, we have placed you on steroids. Given the duration of your sinus symptoms as well as their severity, we have also placed you on an antibiotic. Please take this with probiotic or yogurt. I suggest continuing Flonase as well as Neti pot and allergy medicine Please follow-up with primary care provider in the next few days. Please come back to the emergency department for any acute concerns. Given your high risk status, we did elect to test you for coronavirus. We will call you if this is positive or negative. Please act as though you are sick in the meantime, wash your hands cover your cough etcetera. Please come back to the emergency department for any acute concerns. Prescriptions: New prednisone 20 mg tablet 40 mg PO DAILY 4 Days Qty: 8 RF: 0 amoxicillin-pot clavulanate 875-125 mg tablet 1 tab PO BID Qty: 14 RF: 0 No Action latanoprost 0.005 % drops 1 drp EYE-LEFT BEDTIME Qty: 0 RF: 0 fluticasone propionate 50 mcg/actuation spray,suspension 1 spray Intranasal BID Qty: 16 RF: 11 trazodone 50 mg tablet 50 mg PO HS Qty: 90 RF: 3 omeprazole 20 mg tablet,delayed release (DR/EC) 20 mg PO BID Qty: 180 RF: 3 albuterol sulfate [Ventolin HFA] 90 mcg/actuation HFA aerosol inhaler 2 puff inhalation Q4HP PRN (Reason: Shortness Of Breath) Qty: 18 RF: 11 montelukast [Singulair] 10 mg tablet 10 mg PO QPM RF: 0 dorzolamide 2 % drops 1 drp EYE-LEFT BID RF: 0 brimonidine 0.025 % drops 1 drp EYE-LEFT TID RF: 0 ipratropium-albuterol 0.5 mg-3 mg(2.5 mg base)/3 mL solution for nebulization 3 ml INHALATION Q6-8H PRN (Reason: Shortness Of Breath) RF: 0 ondansetron HCl [Zofran] 4 mg Tablet 4 mg PO Q6H Qty: 60 RF: 2 lorazepam [Ativan] 0.5 mg Tablet 0.5 mg PO Q8H PRN (Reason: Nausea And Vomiting) Qty: 60 RF: 0 capecitabine [Xeloda] 500 mg Tablet 1,000 mg PO BID Qty: 56 RF: 8 capecitabine [Xeloda] 150 mg Tablet 150 mg PO BID Qty: 28 RF: 8 fluticasone propion-salmeterol [Advair Diskus] 500-50 mcg/dose blister with device See Rx Instructions .ROUTE .COMPLEX RF: 0 albuterol sulfate 0.63 mg/3 mL solution for nebulization 0.63 mg INH Q4HP PRN (Reason: Shortness Of Breath) RF: 0 inhaler,assist devices,access 1 unit inhalation DIRECTED RF: 0 ferrous sulfate 325 mg (65 mg iron) tablet 325 mg PO DAILY RF: 0 Referrals: Cruz Baez MD [Primary Care Provider] - <Melody Tidwell DO - Last Filed: 11/19/19 18:54> Cosign ED Attending Deniceature Attestation: I was immediately available in the department for consultation. Documentation has been reviewed. I agree with asse ssment and plan.
[2019-11-19] MEDS: predniSONE 20 MG TABLET 40 MG PO (12:58)
[2019-11-19 13:11] VITALS: BP 127/74; PULSE 56; RESP 18; O2SAT 98
[2019-11-19 14:00] VITALS: BP 119/67; PULSE 59; RESP 19; O2SAT 100
[2019-11-20 10:09] LABS: COVID19 Sendout Not Detected (Not Detected)
== END 2019-11-19 14:16 | disposition home or self-care (01) ==
PROVIDERS: Emergency Provider Nurse Practitioner Family; PCP Internal Medicine
DX: J45.901 Unspecified asthma with (acute) exacerbation (principal); J01.90 Acute sinusitis, unspecified; Z03.818 Encounter for observation for suspected exposure to other biological agents ruled out
CPT/HCPCS: 71046; 87635; 94150; 99283

== ENCOUNTER → 2020-01-08 12:36 | Outpatient (CLI) | payer OTHER, SELFPAY ==
[2019-03-11 12:34] VITALS: BMI 26.7
[2020-01-08 14:08] LABS: Prostate Specific Antigen 11.7 ng/mL (0.10-4.00)
== END ==
PROVIDERS: PCP Internal Medicine; Referring Provider Urology; Visit Provider Urology
DX: R97.20 Elevated prostate specific antigen [PSA] (principal)
CPT/HCPCS: 36415; 84153

== ENCOUNTER → 2020-05-30 08:57 | Outpatient (CLI) | payer OTHER, SELFPAY ==
[2019-03-11 12:34] VITALS: BMI 26.7
[2020-05-30 11:22] LABS: COVID19 -Nasal RAPID Negative (Negative)
== END ==
PROVIDERS: PCP Internal Medicine; Visit Provider Specialist
DX: Z01.812 Encounter for preprocedural laboratory examination (principal); Z20.828 Contact with and (suspected) exposure to other viral communicable diseases
CPT/HCPCS: 87635; C9803

== ENCOUNTER 2020-05-31 06:50 | Day surgery (SDC) | payer OTHER, SELFPAY ==
[2019-03-11 12:34] VITALS: BMI 26.7
[2020-05-31] VITALS (9 sets, daily range): BP systolic 98–148; BP diastolic 67–86; PULSE 68–94; RESP 10–16; TEMP 36.3–36.8; O2SAT 94–98; BMI 29.7
--- NOTE | 2020-05-31 | PATH_ITS ---
[facility] Accession Number: [id number] . 01 Material submitted: . PART A: colon - TRANSVERSE COLON BX @120 CM PART B: body - BX NEAR STAPLED AREA . 02 Diagnosis: A. Transverse Colon, 120 cm, Biopsy: Tubular adenoma. . B. Near Stapled Area, Biopsy: Polypoid granulation tissue. Negative for dysplasia and malignancy. MRV 06/02/2020 1353 Local . 02 Electronically signed: . Karla Ribera MD, Pathologist NPI- [id number] . 01 Gross description: . Part A: TRANSVERSE COLON BX @120 CM: Received in formalin are 4 fragment(s) of ag, soft tissue measuring 0.4 x 0.3 x 0.3 cm to 0.7 x 0.6 x 0.6 cm submitted entirely in 1 cassette(s) Part B: BX NEAR STAPLED AREA: Received in formalin are multiple fragment(s) of ag, soft tissue measuring 0.1 x 0.1 x 0.1 cm to 0.5 x 0.4 x 0.4 cm submitted entirely in 1 cassette(s) /CASSIDY 06/01/20202040 Local . 02 Pathologist provided ICD-10: D12.3 . 02 CPT . 543340, 451501 Performed at: 01 [facility] [address], [place], [place] [id number] MD Jean-Paul Rutherford MD Phone: [phone] Performed at: 02 [facility] [address] [place], [place] [id number] MD Karla Ribera MD Phone: [phone]
[2020-05-31] MEDS: LACTATED RINGERS 1,000 ML 200 ML IV (07:10)
--- NOTE | 2020-05-31 07:40 | PM.HP.1 ---
History of Present Illness History of Present Illness Date Patient Seen: 05/31/20 Time Patient Seen: 07:34 Chief complaint: SDC Narrative: The patient is gentleman here for a colonoscopy. He is post colon resection for colonCancer. Last exam was 6 months ago. Patient History Medical History Adenocarcinoma, colon (~02/2019) Anemia Asthma (02/23/11) Chronic renal failure, stage 3 (moderate) (~2012) Elevated prostate specific antigen (PSA) (02/23/11) Gastroesophageal reflux disease without esophagitis (02/23/11) Glaucoma Hyperlipidemia (09/16/12) Neuropathy Seasonal allergies Wears glasses Surgical History History of back surgery History of colectomy Hx of eye surgery Hx of sinus surgery S/P lumbar discectomy Status post laparoscopic cholecystectomy Family & Social History Family History Mother Carcinoid tumor Social History: household members spouse,children Tobacco & Substance use: Smoking Status Never smoker alcohol intake never Substance Use Type does not use Meds Home Medications and Allergies Home Medications Medication Instructions Recorded Confirmed Type latanoprost 1 drp EYE-LEFT BEDTIME #0 07/30/16 05/31/20 History fluticasone propionate 1 spray INTRANASAL BID #16 gm 07/15/18 05/31/20 Rx brimonidine 0.025 % eye drops 1 drp EYE-LEFT TID ml 03/05/19 05/31/20 History dorzolamide 2 % eye drops 1 drp EYE-LEFT BID ml 03/05/19 05/31/20 History ipratropium 0.5 mg-albuterol 3 mg 3 ml INHALATION Q6-8H PRN 03/05/19 05/31/20 History (2.5 mg base)/3 mL nebulization soln albuterol sulfate 0.63 mg INH Q4HP PRN 03/09/19 05/31/20 History inhaler,assist devices,access 1 unit INHALATION DIRECTED 03/09/19 02/04/20 History ferrous sulfate 325 mg PO DAILY 07/07/19 05/31/20 History omeprazole 20 mg tablet,delayed 20 mg PO BID #180 tab 08/18/19 05/31/20 Rx release trazodone 50 mg tablet 50 mg PO HS #90 tab 08/18/19 05/31/20 Rx albuterol sulfate 90 mcg/actuation 2 puff INHALATION Q4HP PRN #18 gram 10/21/19 05/31/20 Rx aerosol inhaler fluticasone propionate 115 2 puff INHALATION BID #12 gram 01/22/20 05/31/20 Rx mcg-salmeterol 21 mcg/actuation HFA inhaler Allergies Allergy/AdvReac Type Severity Reaction Status Date / Time aspirin [ASPIRIN] Allergy Unknown CAN'T TAKE Verified 05/31/20 07:31 SECONDARY TO ASTHMA Exam Vital Signs (past 8 hours): - 05/31/20 07:20 Temperature 98.2 F Pulse Rate 94 H Respiratory Rate 16 Blood Pressure 148/86 H Pulse Oximetry 98 Oxygen Delivery Method Room Air Narrative Exam Narrative: Pleasant cooperative patient no apparent distress. Lungs are clear to auscultation. No rales or rhonchi. Heart regular rate and rhythm no murmur gallop. Abdomen is soft nontender without mass. No obvious hernias. Patient is alert and oriented x3. Assessment & Plan Assessment & Plan narrative: The patient for a screening colonoscopy. I have discussed the procedure with them. Risks of bleeding, perforation which would necessitate major operation, failure to find remove all lesions, the potential tattoo were all discussed. All questions were answered. They wished to proceed.
--- NOTE | 2020-05-31 07:42 | PM.PREOP ---
Pre-operative Note COVID-19 COVID-19 status: Negative Result date/Date tested (Pos, Neg/Pending): 05/30/20 Interval Note History & Physical reviewed/Exam performed by Physician: Yes Changes to H&P: No ASA Class (for procedural sedation): II
[2020-05-31] MEDS: MIDAZOLAM 5 MG/5 ML VIAL IV (08:15)
[2020-05-31] MEDS: fentaNYL 250 MCG/5 ML INJ IV (08:15)
--- NOTE | 2020-05-31 08:54 | P.OP.ENDO_ITS ---
Operative Date/Time/Diagnoses Date of procedure: 05/31/20 Time of procedure: 08:45 Pre-op diagnosis: History of colon cancer. Last scope was 6 months ago. Post-op diagnosis: same (Probable granulation tissue at the anastomosis. Biopsies taken. One flat lesion beyond the anastomosis in the transverse colon which was tattooed because of its flat nature and difficult to see. This would allow for reliably looking at the spot at the next scope.) Procedure & Clinicians Study performed: Colonoscopy with hot snare polypectomy, cold biopsy, injection of Елена ink. Same procedure as scheduled: Yes Indications: Surveillance of a patient with colon cancer Surgeon: Tramaine Schafer Procedure Notes SCOAP/Timeout: Performed Procedure in detail: The patient was placed in the left lateral decubitus position and underwent IV sedation directed by the surgeon consisting of fentanyl and Versed. Digital exam was remarkable for a an enlarged prostate.. The scope was inserted and advanced through the rectum into the sigmoid, d escending, transverse, and ascending colon. I encountered the anastomosis in the transverse colon. I noticed foreign body material protruding at the anastomosis and also just beyond it. There was heaped up tissue in the area that was very localized. I suspect this was granulation tissue but shows on the way out to biopsy. Just beyond this was a flat lesion in the colon. I continued on into the cecum.. The cecum was reached identified by the ileocecal valve and the appendiceal opening. The ileocecal valve was not cannulated. The scope was gradually brought out. The flat polyp was snared in pieces and removed. I cauterized the edges. I injected 1 cc of Елена ink just adjacent to it. It appeared to be benign. I also biopsied then snared the rays area of tissue with the foreign body that was located just beyond the anastomosis. I also biopsied the tissue at the anastomosis. I cauterized both areas because there was mild oozing. The scope was gradually brought out. No other lesions were seen. The scope ultimately was retroflexed in the rectum. The appearance was normal except for hemorrhoidal disease.. The scope was removed and the patient tolerated the procedure well. The prep was very good. Scope withdrawal time: 9min (29 total) Sedation minutes: 44 Findings: polyp Specimen(s): other (Polyp and biopsies at the anastomosis.) Complications: none Post-procedure Recommendations: Other recommendation (Colonoscopy in 6 months to confirm no regrowth of a flat lesion tattooed.) Follow up: as needed Disposition: PACU
--- NOTE | 2020-05-31 09:32 | SUR.PHASEII ---
Pt has met discharge criteria, VSS, denied nausea or pain. Labs drawn in PACU. Discharge instructions discussed with pt, all questions answered. IV access removed, tip intact. Transported via W/C to private vehicle.
[2020-05-31 10:29] LABS: Carcinoembryonic Antigen 2.8 ng/mL (0.1-3.0)
== END 2020-05-31 09:33 | disposition home or self-care (01) ==
PROVIDERS: PCP Internal Medicine; Referring Provider Internal Medicine; Visit Provider Specialist
PROC: 0DJD8ZZ Inspection of Lower Intestinal Tract, Via Natural or Artificial Opening Endoscopic (ICD-10-PCS; CPT 45378; principal; 2020-05-31 07:45)
DX: D12.3 Benign neoplasm of transverse colon (principal); K64.9 Unspecified hemorrhoids; Z85.038 Personal history of other malignant neoplasm of large intestine; Z12.11 Encounter for screening for malignant neoplasm of colon
CPT/HCPCS: 45385; 45380; 45381; 36415; 82378; 99152; 99153; J2250; J3010

== ENCOUNTER → 2020-06-15 08:12 | Outpatient (CLI) | payer OTHER, SELFPAY ==
[2019-03-11 12:34] VITALS: BMI 26.7
--- NOTE | 2020-06-15 08:12 | DI.US.S_ITS ---
PROCEDURE: US ABDOMEN LIMITED INDICATIONS: RIGHT UPPER QUADRANT PAIN AND ELEVATED LIVER LABS. TECHNIQUE: Real-time focused scanning was performed of the abdomen, with image documentation. COMPARISON: None. FINDINGS: Liver size is normal but echogenicity is increased consistent with fatty infiltration. Prior cholecystectomy. Bile ducts are not distended. The pancreas is not visualized due to overlying bowel gas. No abnormal free fluid. IMPRESSION: Limited right upper quadrant ultrasound identifies fatty infiltration within the liver and no additional abnormality is noted. Dictated by: Abel Dominguez M.D. on 06/15/2020 at 13:49 Approved by: Abel Dominguez M.D. on 06/15/2020 at 13:50
== END ==
PROVIDERS: PCP Internal Medicine; Referring Provider Internal Medicine Hematology & Oncology; Visit Provider Internal Medicine Hematology & Oncology
DX: C18.9 Malignant neoplasm of colon, unspecified (principal); R10.11 Right upper quadrant pain; R74.01 Elevation of levels of liver transaminase levels; K76.0 Fatty (change of) liver, not elsewhere classified
CPT/HCPCS: 76705

== ENCOUNTER → 2020-07-29 16:33 | Outpatient (CLI) | payer OTHER, SELFPAY ==
[2019-03-11 12:34] VITALS: BMI 26.7
[2020-07-29 18:39] LABS: INR 1.1 (0.9-1.3); Prothrombin Time 12.4 SECONDS (10.1-12.7)
[2020-07-29 18:44] LABS: Alanine Aminotransferase 51 IU/L (<50); Albumin 4.8 g/dL (3.5-5.0); Albumin Globulin Ratio 1.4 (1.0-2.8); Alkaline Phosphatase 102 U/L (38-126); Aspartate Aminotransferase 40 IU/L (17-59); Bilirubin Total 0.5 mg/dL (0.2-1.3); Bilirubin Unconjugated 0.4 mg/dL (0.0-1.1); Creatine Kinase 196 U/L (55-170); Globulin 3.4 g/dL (1.7-4.1); HEMOLYSIS 18 (0-50); HEMOLYSIS < 15 (0-50); Iron 98 ug/dL (49-181); Total Protein 8.2 g/dL (6.3-8.2)
[2020-07-29 18:55] LABS: Percent Iron Saturation 31 % (20-50); Total Iron Binding Capacity 314 ug/dL (261-462); Transferrin 234 mg/dL (206-381)
[2020-07-29 22:17] LABS: Hepatitis B Surface Antigen NEGATIVE s/c (NEGATIVE)
[2020-07-29 22:50] LABS: Hep C Virus Ab w/Reflex Quant NEGATIVE s/c (NEGATIVE)
[2020-07-30 07:36] LABS: Ceruloplasmin 23.1 mg/dL (16.0-31.0); Hepatitis B Surf Ab Qualitativ Non Reactive (.)
[2020-07-31 15:08] LABS: ANA Screen, IFA Negative (.)
[2020-08-01 12:39] LABS: Smooth Muscle Antibody 17 Units (0-19)
[2020-08-02 03:08] LABS: Deamidated Gliadin IgA 9 units (0-19); Deamidated Gliadin IgG 3 units (0-19); IGA 299 mg/dL (61-437); t-Transglutaminase IgA <2 U/mL (0-3)
== END ==
PROVIDERS: PCP Internal Medicine; Referring Provider Internal Medicine; Visit Provider Internal Medicine
DX: C18.9 Malignant neoplasm of colon, unspecified (principal); R94.5 Abnormal results of liver function studies
CPT/HCPCS: 36415; 80076; 82390; 82550; 82784; 83516; 83540; 83550; 85610; 86038; 86255; 86706; 86803; 87340

== ENCOUNTER → 2020-08-02 08:33 | Outpatient (CLI) | payer OTHER, SELFPAY ==
[2019-03-11 12:34] VITALS: BMI 26.7
[2020-08-04 12:42] LABS: M-Spike % Not Observed % (Not Observed); Protein, Total, 24 hr urine 175 mg/24 hr (30-150); Total Urine Protein 16.7 mg/dL (Not Estab.)
== END ==
PROVIDERS: PCP Internal Medicine; Referring Provider Internal Medicine; Visit Provider Internal Medicine
DX: C18.9 Malignant neoplasm of colon, unspecified (principal); R94.5 Abnormal results of liver function studies
CPT/HCPCS: 84156; 84166

== ENCOUNTER → 2020-08-04 10:45 | Outpatient (CLI) | payer OTHER, SELFPAY ==
[2019-03-11 12:34] VITALS: BMI 26.7
[2020-08-04] MEDS: COVID-19 VACC, Ad26(JANSSEN)/PF 0.5 ML IM (10:51)
== END ==
PROVIDERS: PCP Internal Medicine; Visit Provider Internal Medicine
DX: Z23 Encounter for immunization (principal)
CPT/HCPCS: 0031A; 91303

== ENCOUNTER → 2020-09-06 13:31 | Outpatient (CLI) | payer OTHER, SELFPAY ==
[2019-03-11 12:34] VITALS: BMI 26.7
[2020-09-06 15:03] LABS: Prostate Specific Antigen 14.2 ng/mL (0.10-4.00)
== END ==
PROVIDERS: PCP Internal Medicine; Referring Provider Urology; Visit Provider Urology
DX: R97.20 Elevated prostate specific antigen [PSA] (principal)
CPT/HCPCS: 36415; 84153

== ENCOUNTER → 2021-02-24 10:11 | Outpatient (CLI) | payer OTHER, SELFPAY ==
[2019-03-11 12:34] VITALS: BMI 26.7
[2021-02-24 12:23] LABS: Prostate Specific Antigen 11.3 ng/mL (0.10-4.00)
== END ==
PROVIDERS: PCP Internal Medicine; Referring Provider Urology; Visit Provider Urology
DX: R97.20 Elevated prostate specific antigen [PSA] (principal)
CPT/HCPCS: 36415; 84153

== ENCOUNTER 2021-06-04 14:42 | Inpatient (IN) | payer OTHER, SELFPAY ==
[2019-03-11 12:34] VITALS: BMI 26.7
[2021-06-04] VITALS (10 sets, daily range): BP systolic 136–178; BP diastolic 74–81; PULSE 61–74; RESP 12–20; TEMP 36.2–37.1; O2SAT 97–100; BMI 29.4
--- NOTE | 2021-06-04 15:26 | DI.CT.S_ITS ---
PROCEDURE: CT ABDOMEN PELVIS WO CON INDICATIONS: kidney stone TECHNIQUE: Axial sections were acquired from the lung bases to the pubic symphysis. Coronal and sagittal reformats were performed. For radiation dose reduction, the following was used: automated exposure control, adjustment of mA and/or kV according to patient size. COMPARISON: [facility], CT, CT CHEST ABD PEL W CON, 03/04/2019, 14:00. [facility], CR, XR CHEST 2V, 11/19/2019, 11:07. FINDINGS: Image quality: Excellent. Lung bases: Unremarkable. Heart: No significant findings. URINARY: Right Kidney: Multiple nonobstructing nephroliths the largest measures up to 5 mm. No hydronephrosis. 1 cm exophytic simple cyst. Right Ureter: No hydroureter. Left Kidney: Multiple simple appearing cysts the largest within the superior pole measures up to 4.1 cm. No nephroliths are noted. Moderate hydroureteronephrosis. Moderate perinephric inflammation. Left Ureter: Hydroureter with obstructing calcification within the proximal left ureter measuring 6 mm. Bladder: There is circumferential wall thickening of the bladder with multiple calcified intraluminal stones. The largest measures up to 2.9 by 2.2 cm. ABDOMEN: Liver: Unremarkable. Gallbladder: Surgically absent. Biliary ducts: Unremarkable. Pancreas: Unremarkable. Spleen: Unremarkable. Adrenal Glands: Unremarkable. Stomach and Bowel: Stomach and small bowel are unremarkable. A few scattered left colonic diverticula. Appendix is normal. Peritoneum: No abnormal intraperitoneal fluid. No free air. Ventral Wall: No hernia. Postsurgical changes of prior ventral hernia repair. Abdominal Nodes: No enlarged retroperitoneal or mesenteric lymph nodes. Vessels: Aorta and inferior vena cava are normal in size. PELVIS: Pelvic Organs: Very large prostatomegaly. Pelvic Nodes: Unremarkable. Miscellaneous: No inguinal hernias are seen. Bones: Age-appropriate degenerative changes of the spine. Likely bone islands noted within the pelvis. IMPRESSION: Obstructing 6 mm calcification within the proximal left ureter resulting in moderate hydroureteronephrosis. Additional multiple nonobstructing right-sided nephroliths and multiple large intraluminal bladder calcifications. Very large prostatomegaly. Circumferential wall thickening of the bladder likely due to outlet obstruction given prostatomegaly. Recommend correlation with urinalysis to exclude cystitis. Dictated by: Carlitos Smith D.O. on 06/04/2021 at 15:10 Approved by: Carlitos Smith D.O. on 06/04/2021 at 15:19
--- NOTE | 2021-06-04 15:28 | ED.ABDPAIN ---
HPI - Abdominal Pain General Chief Complaint: Abdominal Pain Stated Complaint: Left Sided Back Pain Time Seen by Provider: 06/04/21 15:21 Source: patient Mode of arrival: Ambulatory History of Present Illness HPI narrative: Patient presents to the ED complaining of left flank pain radiating around on his left groin patient states that the pain started 2-3 days ago pain would come and go today the pain became more severe. Patient reports a history of kidney stones in the past however his last kidney stone was multiple years ago. He is also having some associated nausea vomiting that started yesterday. He was diagnosed with stage II colon cancer 2 years ago and had a colon resection and was told that his kidney function was some decreased. He tried taking ibuprofen and Tylenol with this little relief of his pain. He has had decreased p.o. intake today. Related Data Home Medications Medication Instructions Recorded Confirmed latanoprost 0.005 % eye drops 1 drp EYE-LEFT BEDTIME #0 07/30/16 02/21/21 brimonidine 0.025 % eye drops 1 drp EYE-LEFT TID ml 03/05/19 02/21/21 dorzolamide 2 % eye drops 1 drp EYE-LEFT BID ml 03/05/19 02/21/21 ipratropium 0.5 mg-albuterol 3 mg 3 ml INHALATION Q6-8H PRN 03/05/19 02/21/21 (2.5 mg base)/3 mL nebulization soln inhaler,assist devices,access 1 unit INHALATION DIRECTED 03/09/19 02/21/21 ferrous sulfate 325 mg (65 mg 325 mg PO DAILY 07/07/19 02/21/21 iron) tablet Previous Rx's Medication Instructions Recorded fluticasone propionate 50 1 spray INTRANASAL BID #16 gm 07/15/18 mcg/actuation nasal spray,suspension inhalational spacing device #1 ea 06/06/20 (Aerochamber MV) albuterol sulfate 90 mcg/actuation 2 inh INHALATION Q4H PRN #18 g 09/30/20 aerosol inhaler omeprazole 20 mg tablet,delayed 20 mg PO BID #180 tab 11/01/20 release albuterol sulfate 90 mcg/actuation 2 puff INHALATION Q4HP PRN #54 g 11/18/20 aerosol inhaler (Ventolin HFA) trazodone 50 mg tablet 50 mg PO HS #90 tab 01/31/21 albuterol sulfate 0.63 mg/3 mL 0.63 mg (3 mL) CONTINUOUS 02/21/21 solution for nebulization NEBULIZATION Q4HP PRN #90 ml fluticasone propionate 230 2 puff INHALATION BID #12 g 05/01/21 mcg-salmeterol 21 mcg/actuation HFA inhaler Allergies Allergy/AdvReac Type Severity Reaction Status Date / Time aspirin [ASPIRIN] Allergy Unknown CAN'T TAKE Verified 02/21/21 11:34 SECONDARY TO ASTHMA Review of Systems Review of Systems ROS Unobtainable: All systems reviewed & are unremarkable except as noted in HPI and below Constitutional Constitutional: Denies chills, Denies fatigue, Denies fever(s), Denies frequent falls, Denies lethargy and Denies weakness Eyes Eyes: Denies change in vision, Denies eye discharge, Denies irritation and Denies loss of vision ENT Ears, Nose, Mouth, and Throat: Denies change in voice, Denies dizziness, Denies neck pain, Denies sore throat and Denies throat swelling Cardiovascular Cardiovascular: Denies chest pain, Denies irregular heart rhythm, Denies lightheadedness, Denies palpitations, Denies dyspnea, Denies dyspnea on exertion and Denies orthopnea Respiratory Respiratory: Denies cough, Denies dyspnea, Denies dyspnea on exertion and Denies wheezing Gastrointestinal Gastrointestinal: Reports abdominal pain, Denies change in bowel habits, Denies diarrhea, Reports nausea and Reports vomiting Genitourinary Genitourinary: Denies hematuria, Reports flank pain, Denies urinary incontinence and Denies urinary urgency Musculoskeletal Musculoskeletal: Denies back pain, Denies muscle weakness, Denies neck pain, Denies numbness and Denies tingling Integumentary/Breasts Skin/Breast: Denies pruritus, Denies erythema, Denies rash and Denies wounds Neurologic Neurologic: Denies behavioral changes, Denies confusion, Denies dizziness, Denies frequent falls, Denies loss of vision, Denies numbness, Denies tingling and Denies weakness Psychiatric Psychiatric: Denies anxiety, Denies behavioral changes, Denies confusion, Denies depression, Denies homicidal ideation and Denies suicidal ideation Endocrine Endocrine: Denies fatigue, Denies flushing and Denies palpitations Hematologic/Lymphatic Hematologic/Lymphatic: Denies easy bruising Allergic/Immunologic Allergic/Immunologic: Denies urticaria, Denies throat swelling and Denies wheezing Patient History Medical History Abnormal LFTs Adenocarcinoma, colon (~02/2019) Anemia Asthma (02/23/11) Chronic renal failure, stage 3 (moderate) (~2012) Elevated prostate specific antigen (PSA) (02/23/11) Gastroesophageal reflux disease without esophagitis (02/23/11) Glaucoma Hyperlipidemia (09/16/12) Neuropathy Seasonal allergies Wears glasses Surgical History History of back surgery History of colectomy Hx of eye surgery Hx of sinus surgery S/P lumbar discectomy Status post laparoscopic cholecystectomy Family History Mother Carcinoid tumor Social History marital status: household members: spouse and children occupational status: employed Smoking Status: Never smoker alcohol intake: never substance use type: does not use Smoking Status: Never smoker Substance Use Type: does not use Exam Initial Vital Signs Initial Vital Signs: Vital Signs Temperature 97.1 F L 06/04/21 14:48 Pulse Rate 74 06/04/21 14:48 Respiratory Rate 20 06/04/21 14:48 Blood Pressure 178/81 H 06/04/21 14:48 Pulse Oximetry 100 06/04/21 14:48 Const General: cooperative, healthy appearing and acute distress [facility] Head: normal to inspection, normocephalic and atraumatic Ears: hearing grossly normal bilaterally, external ears normal and TM's normal bilaterally Nose: external nose normal Face and sinus: normal facial exam and sinuses nontender Mouth: oral mucosae normal, lip normal and tongue normal Teeth and gingiva: dentition normal and gingiva normal Eyes General: appearance normal, both eyes and all related structures EOM: EOM intact bilaterally Neck Neck: normal visual inspection and full ROM Resp Effort & Inspection: normal respiratory effort and able to speak in complete sentences Auscultation: clear to auscultation bilaterally Cardio Rate: regular rate Rhythm: regular rhythm Heart Sounds: S1 normal and S2 normal GI Inspection: normal to inspection Palpation: soft and no hepatosplenomegaly Percussion: normal to percussion Auscultation: normal bowel sounds Skin General: no rashes or lesions noted Neuro General: patient alert, patient awake and patient oriented x3 Course Orders Ordered: ED Orders 06/04/21 14:50 EKG-12 Lead Stat 06/04/21 14:59 Urinalysis and Microscopic Stat Urine Culture Stat 06/04/21 15:26 CT abdomen pelvis wo con Stat 06/04/21 15:43 Complete Blood Count AUTO DIFF Stat Comprehensive Metabolic Panel Stat Lipase Stat Discontinued Medications Morphine Sulfate (Morphine 4 Mg/Ml Inj) 4 mg IV NOW ONE Stop: 06/04/21 17:01 Last Admin: 06/04/21 17:04 Dose: 4 mg Documented by: ALEX Reevaluation(s) Reevaluation #1: Patient responded well to the morphine, pain is tolerable. Consultations Consultation #1: I spoke with Dr. Neville regarding his CT scan his recommendation was to admit the patient and he would arrange for a stent to be placed. Since his kidney function is increased in his pain control is limited he recommended admission. Consultation #2: I spoke with Dr. Yoder with Hospital Medicine regarding admission she was agreeable based on the CT findings and Dr. Neville is our recommendations. Patient will be admitted to inpatient. Vital Signs Vital signs: Vital Signs - 8 hr 06/04/21 14:48 Temperature 97.1 F L Pulse Rate 74 Respiratory Rate 20 Blood Pressure 178/81 H Pulse Oximetry 100 MDM - Abdominal Pain Differential Diagnosis Differential diagnosis: Likely calculus of kidney Lab Data Result diagrams: 06/04/21 15:43 06/04/21 15:43 Labs: Lab Results 06/04/21 06/04/21 06/04/21 Range/Units 14:59 15:43 15:43 WBC 9.2 (4.5-11.0) X10^3/uL RBC 4.05 L (4.5-5.9) X10^6/uL Hgb 13.6 (13.5-17.5) g/dL Hct 38.0 L (41-53) % MCV 93.9 (80-100) fL MCH 33.6 (26-34) PG MCHC 35.8 (30-36) % RDW 13.5 (11.6-14.8) % Plt Count 172 (150-400) X10^3/uL Neut % (Auto) 77.8 H (50-75) % Lymph % (Auto) 11.6 L (25-40) % Kaufman % (Auto) 7.8 (3-14) % Eos % (Auto) 2.2 (2-4) % Baso % (Auto) 0.6 (0-2) % Neut # (Auto) 7200 H (9584-5088) /uL Lymph # (Auto) 1100 (5671-7038) /uL Kaufman # (Auto) 700 (0-900) /uL Eos # (Auto) 200 (0-450) /uL Baso # (Auto) 100 (0-100) /uL Sodium 137 (137-145) mmol/L Potassium 4.2 (3.4-5.1) mmol/L Chloride 111 H (98-107) mmol/L Carbon Dioxide 20 L (22-32) mmol/L BUN 33 H (9-20) mg/dL Creatinine 2.70 H (0.66-1.25) mg/dL Estimated GFR 23.9 L (>60) mL/min BUN/Creatinine Ratio 12.2 (6-22) Glucose 122 H (80-110) mg/dL Calcium 9.0 (8.4-10.2) mg/dL Total Bilirubin 0.8 (0.2-1.3) mg/dL AST 38 (17-59) IU/L ALT 32 (<50) IU/L Alkaline Phosphatase 70 (38-126) U/L Total Protein 7.6 (6.3-8.2) g/dL Albumin 4.3 (3.5-5.0) g/dL Globulin 3.3 (1.7-4.1) g/dL Albumin/Globulin Ratio 1.3 (1.0-2.8) Lipase 203 (23-300) U/L Urine Color Yellow Urine Appearance Clear Urine pH 5.5 (4.5-8.0) Ur Specific [place] 1.020 (1.000-1.035) Urine Protein Trace H (Negative) Urine Glucose (UA) Negative (Negative) g/dL Urine Ketones Negative (NEGATIVE) Urine Occult Blood 2+ H (Negative) Urine Nitrate Negative (Negative) Urine Bilirubin Negative (NEGATIVE) Urine Urobilinogen 0.2 (0.2) E.U./dL Ur Leukocyte Esterase Trace H (NEGATIVE) Urine RBC 5-10/hpf H (0-5/HPF) Urine WBC 5-10/hpf H (0-5/HPF) Ur Squamous Epith Cells 1-5 /hpf (0-5/HPF) Amorphous Sediment 1+ Urine Bacteria Occasional (0-1) (None) Urine Mucus 1+ H (Negative) Ur Culture Indicated? Specimen cultured Point of care testing: Urine Dip Bedside Urine Glucose Negative Bedside Urine Bilirubin - Negative Bedside Urine Ketone - Negative Urine Specific [place] 1.025 Bedside Urine Occult Blood + Bedside Urine pH 6.0 Bedside Urine Protein +/- 15 Bedside Urine Urobilinogen - Negative Bedside Urine Nitrite - Negative Bedside Urine Leukocytes +/- [address] scan - abdomen/pelvis: Radiologist's Impression: PROCEDURE:? CT ABDOMEN PELVIS WO CON ? INDICATIONS:? kidney stone ? TECHNIQUE:? Axial sections were acquired from the lung bases to the pubic symphysis.? Coronal and sagittal reformats were performed.? For radiation dose reduction, the following was used: ?automated exposure control, adjustment of mA and/or kV according to patient size.? ? COMPARISON:? [facility], CT, CT CHEST ABD PEL W CON, 03/04/2019, 14:00.? [facility], CR, XR CHEST 2V, 11/19/2019, 11:07. ? FINDINGS:? Image quality:? Excellent.? ? Lung bases:? Unremarkable.? ? Heart:? No significant findings. ? URINARY: Right Kidney:? Multiple nonobstructing nephroliths the largest measures up to 5 mm. ? No hydronephrosis.? 1 cm exophytic simple cyst. Right Ureter:? No hydroureter. ? Left Kidney:? Multiple simple appearing cysts the largest within the superior pole measures up to 4.1 cm.? No nephroliths are noted.? Moderate hydroureteronephrosis.? Moderate perinephric inflammation. Left Ureter:? Hydroureter with obstructing calcification within the proximal left ureter measuring 6 mm. ? Bladder:? There is circumferential wall thickening of the bladder with multiple calcified intraluminal stones.? The largest measures up to 2.9 by 2.2 cm. ? ABDOMEN: Liver:? Unremarkable.? ? Gallbladder:? Surgically absent.? Biliary ducts:? Unremarkable.? ? Pancreas:? Unremarkable.? ? Spleen:? Unremarkable.? ? Adrenal Glands:? Unremarkable.? ? ? Stomach and Bowel:? Stomach and small bowel are unremarkable.? A few scattered left colonic diverticula.? Appendix is normal. Peritoneum:? No abnormal intraperitoneal fluid.? No free air.? ? Ventral Wall: ? No hernia.? Postsurgical changes of prior ventral hernia repair. Abdominal Nodes:? No enlarged retroperitoneal or mesenteric lymph nodes.? Vessels:? Aorta and inferior vena cava are normal in size.? ? PELVIS: Pelvic Organs:? Very large prostatomegaly.? Pelvic Nodes: Unremarkable. Miscellaneous: No inguinal hernias are seen. ? ? ? Bones:? Age-appropriate degenerative changes of the spine.? Likely bone islands noted within the pelvis. ? IMPRESSION:? ? Obstructing 6 mm calcification within the proximal left ureter resulting in moderate hydroureteronephrosis.? Additional multiple nonobstructing right-sided nephroliths and multiple large intraluminal bladder calcifications. ? Very large prostatomegaly.? Circumferential wall thickening of the bladder likely due to outlet obstruction given prostatomegaly.? Recommend correlation with urinalysis to exclude cystitis. ? ? ? Dictated by: Carlitos Smith D.O. on 06/04/2021 at 15:10 ? ? Approved by: Carlitos Smith D.O. on 06/04/2021 at 15:19?? MDM Narrative Medical decision making narrative: Patient did well with pain medication and due to the increasing creatinine and large obstructed kidney stone with hydronephrosis a recommendation by Dr. Neville was to admit the patient. Patient will be admitted to Hospital Medicine and Dr. Neville will be consulted for stent placement evaluation. Discharge Plan Departure Patient Disposition: Admitted As Inpatient Clinical Impression: Calculus of kidney, Hydronephrosis, Acute renal impairment Admit Date/Time: 06/04/21 17:27
[2021-06-04 15:52] LABS: Add Manual Diff / Slide Review NO; Basophils Absolute Auto 100 /uL (0-100); Basophils Percent Auto 0.6 % (0-2); Eosinophils Absolute Auto 200 /uL (0-450); Eosinophils Percent Auto 2.2 % (2-4); Hemoglobin 13.6 g/dL (13.5-17.5); Lymphocytes Absolute Auto 1100 /uL (1100-4500); Lymphocytes Percent Auto 11.6 % (25-40); Mean Corpuscular HGB Conc 35.8 % (30-36); Mean Corpuscular Hemoglobin 33.6 PG (26-34); Mean Corpuscular Volume 93.9 fL (80-100); Monocytes Absolute Auto 700 /uL (0-900); Monocytes Percent Auto 7.8 % (3-14); Neutrophils Absolute Auto 7200 /uL (1500-7000); Neutrophils Percent Auto 77.8 % (50-75); Platelet Count 172 X10^3/uL (150-400); Red Blood Cell Count 4.05 X10^6/uL (4.5-5.9); Red Cell Distribution Width 13.5 % (11.6-14.8); White Blood Cell Count 9.2 X10^3/uL (4.5-11.0)
[2021-06-04 16:00] LABS: Appearance Urine UA CLEAR; Bilirubin Urine UA NEGATIVE (NEGATIVE); Color Urine UA YELLOW; Glucose Urine UA NEGATIVE (Negative); Ketones Urine UA NEGATIVE (NEGATIVE); Leukocyte Esterase Urine UA TRACE (NEGATIVE); Nitrite Urine UA NEGATIVE (Negative); Occult Blood Urine UA 2+ (Negative); Protein Urine UA TRACE (Negative); Urobilinogen Urine UA 0.2 E.U./dL (0.2); pH Urine UA 5.5 (4.5-8.0)
[2021-06-04 16:08] LABS: Amorphous Sediment Urine 1+; Bacteria Urine Occasional (0-1); Culture Indicated Urine Specimen Cultured; Mucus Urine 1+ (Negative); RBC Urine 5-10/HPF (0-5/HPF); Squamous Epithelial Cell Urine 1-5 /HPF (0-5/HPF); WBC Urine 5-10/HPF (0-5/HPF)
[2021-06-04 16:13] LABS: Alanine Aminotransferase 32 IU/L (<50); Albumin 4.3 g/dL (3.5-5.0); Albumin Globulin Ratio 1.3 (1.0-2.8); Alkaline Phosphatase 70 U/L (38-126); Aspartate Aminotransferase 38 IU/L (17-59); BUN Creatinine Ratio 12.2 (6-22); Bilirubin Total 0.8 mg/dL (0.2-1.3); Blood Urea Nitrogen 33 mg/dL (9-20); Carbon Dioxide 20 mmol/L (22-32); Chloride 111 mmol/L (98-107); Estimated Glomerular Filt Rate 23.9 mL/min (>60); Globulin 3.3 g/dL (1.7-4.1); Glucose 122 mg/dL (80-110); HEMOLYSIS 49 (0-50); Lipase 203 U/L (23-300); Potassium 4.2 mmol/L (3.4-5.1); Sodium 137 mmol/L (137-145); Total Protein 7.6 g/dL (6.3-8.2)
[2021-06-04] MEDS: MORPHINE 4 MG/ML INJ IV (17:04)
--- NOTE | 2021-06-04 18:30 | PM.HP.1 ---
History of Present Illness History of Present Illness Date Patient Seen: 06/04/21 Time Patient Seen: 18:30 Date of Onset of Symptoms: 06/01/21 Chief complaint: Left Sided Back Pain Narrative: PMH: 1. 03/14 Adenocarcinoma of the colon; s/p surgical resection and chemotherapy and currently cancer free 2. Anemia, secondary to colon cancer 3. 02/04 RAD 4. 2012 Chronic kidney disease 5. GERD 6. Hyperlipidemia 7. Neuropathy 8. BPH 9. Elevated PSA, s/p biopsy negative x 2, 07/08 and 03/07 10. Glaucoma All: aspirin PSH: 1. February 2019 colon resection 2. Lumbar spine surgery, diskectomy 3. Laparoscopic-assisted cholecystectomy 4. Sinus surgery 5. Eye surgery Social history: Patient is . He lives in in a [place] with his . 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 He has 2 grown daughters ages 33 and 31 and 4 granddaughters Family history: Mother had carcinoid tumor, she is 88 years old and still alive Father had diabetes Health or to behavior: Patient does not smoke. He does not use alcohol. He does not use illicit drugs Patient History Medical History Abnormal LFTs Adenocarcinoma, colon (~02/2019) Anemia Asthma (02/23/11) Chronic renal failure, stage 3 (moderate) (~2012) Elevated prostate specific antigen (PSA) (02/23/11) Gastroesophageal reflux disease without esophagitis (02/23/11) Glaucoma Hyperlipidemia (09/16/12) Neuropathy Seasonal allergies Wears glasses Surgical History History of back surgery History of colectomy Hx of eye surgery Hx of sinus surgery S/P lumbar discectomy Status post laparoscopic cholecystectomy Family & Social History Family History Mother Carcinoid tumor Social History: household members spouse,children Tobacco & Substance use: Smoking Status Never smoker alcohol intake never Substance Use Type does not use Meds Home Medications and Allergies Home Medications Medication Instructions Recorded Confirmed Type latanoprost 0.005 % eye drops 1 drp EYE-LEFT BEDTIME #0 07/30/16 02/21/21 History fluticasone propionate 50 1 spray INTRANASAL BID #16 gm 07/15/18 02/21/21 Rx mcg/actuation nasal spray,suspension brimonidine 0.025 % eye drops 1 drp EYE-LEFT TID ml 03/05/19 02/21/21 History dorzolamide 2 % eye drops 1 drp EYE-LEFT BID ml 03/05/19 02/21/21 History ipratropium 0.5 mg-albuterol 3 mg 3 ml INHALATION Q6-8H PRN 03/05/19 02/21/21 History (2.5 mg base)/3 mL nebulization soln inhaler,assist devices,access 1 unit INHALATION DIRECTED 03/09/19 02/21/21 History ferrous sulfate 325 mg (65 mg 325 mg PO DAILY 07/07/19 02/21/21 History iron) tablet inhalational spacing device #1 ea 06/06/20 02/21/21 Rx (Aerochamber MV) albuterol sulfate 90 mcg/actuation 2 inh INHALATION Q4H PRN #18 g 09/30/20 02/21/21 Rx aerosol inhaler omeprazole 20 mg tablet,delayed 20 mg PO BID #180 tab 11/01/20 02/21/21 Rx release albuterol sulfate 90 mcg/actuation 2 puff INHALATION Q4HP PRN #54 g 11/18/20 02/21/21 Rx aerosol inhaler (Ventolin HFA) trazodone 50 mg tablet 50 mg PO HS #90 tab 01/31/21 02/21/21 Rx albuterol sulfate 0.63 mg/3 mL 0.63 mg (3 mL) CONTINUOUS 02/21/21 02/21/21 Rx solution for nebulization NEBULIZATION Q4HP PRN #90 ml fluticasone propionate 230 2 puff INHALATION BID #12 g 05/01/21 Rx mcg-salmeterol 21 mcg/actuation HFA inhaler Allergies Allergy/AdvReac Type Severity Reaction Status Date / Time aspirin [ASPIRIN] Allergy Unknown CAN'T TAKE Verified 02/21/21 11:34 SECONDARY TO ASTHMA Review of Systems Review of Systems Narrative: Patient uses his inhaler his rescue inhaler once today. He is on Advair and really this is the best he has done with his asthma in a long time on this current regimen. Also being in this area. He previously lived in [place] and therefore had a lot of difficulty with his lungs. He denies fevers. He denies dysuria He denies diarrhea or constipation or nausea or vomiting Denies any headaches Denies shortness of breath or chest pain or palpitation Denies joint pains, rashes, weight loss or weight gain Otherwise 12 point review of systems is negative Exam Vital Signs (past 8 hours): - 06/04/21 14:48 06/04/21 17:15 06/04/21 17:26 Temperature 97.1 F L Pulse Rate 74 65 65 Respiratory Rate 20 Blood Pressure 178/81 H 156/77 H Pulse Oximetry 100 99 99 06/04/21 17:27 06/04/21 17:30 06/04/21 18:00 Temperature Pulse Rate 69 65 65 Respiratory Rate Blood Pressure 177/78 H Pulse Oximetry 99 99 98 Oxygen Delivery Method Room Air Narrative Exam Narrative: Alert and oriented x3 HEENT is unremarkable Neck: Supple without adenopathy Chest: Clear to auscultation without wheezes rhonchi or crackles Cor: Regular rate and rhythm without a murmur Abdomen: Obese, no hepatosplenomegaly, positive bowel sounds, marked tenderness left upper quadrant left lower quadrant but no guarding or rebound and no peritoneal signs Extremities: No edema, pulses intact Neurologic exam nonfocal Objective Labs Result Diagrams: 06/04/21 15:43 06/04/21 15:43 Labs: Laboratory Results - last 24 hr 06/04/21 06/04/21 06/04/21 14:59 15:43 15:43 WBC 9.2 RBC 4.05 L Hgb 13.6 Hct 38.0 L MCV 93.9 MCH 33.6 MCHC 35.8 RDW 13.5 Plt Count 172 Neut % (Auto) 77.8 H Lymph % (Auto) 11.6 L [place] % (Auto) 7.8 Eos % (Auto) 2.2 Baso % (Auto) 0.6 Neut # (Auto) 7200 H Lymph # (Auto) 1100 [place] # (Auto) 700 Eos # (Auto) 200 Baso # (Auto) 100 Sodium 137 Potassium 4.2 Chloride 111 H Carbon Dioxide 20 L BUN 33 H Creatinine 2.70 H Estimated GFR 23.9 L BUN/Creatinine Ratio 12.2 Glucose 122 H Calcium 9.0 Total Bilirubin 0.8 AST 38 ALT 32 Alkaline Phosphatase 70 Total Protein 7.6 Albumin 4.3 Globulin 3.3 Albumin/Globulin Ratio 1.3 Lipase 203 Urine Color Yellow Urine Appearance Clear Urine pH 5.5 Ur Specific [place] 1.020 Urine Protein Trace H Urine Glucose (UA) Negative Urine Ketones Negative Urine Occult Blood 2+ H Urine Nitrate Negative Urine Bilirubin Negative Urine Urobilinogen 0.2 Ur Leukocyte Esterase Trace H Urine RBC 5-10/hpf H Urine WBC 5-10/hpf H Ur Squamous Epith Cells 1-5 /hpf Amorphous Sediment 1+ Urine Bacteria Occasional (0-1) Urine Mucus 1+ H Ur Culture Indicated? Specimen cultured Assessment & Plan Assessment & Plan narrative: 66-year-old male admitted for nephrolithiasis with obstructing stone. Assessment 1. Nephrolithiasis Plan: Patient has an obstructing stone. The case was already discussed with Dr. Neville who wanted Medicine to admit the patient and he will consult. He plans to take him to the OR tomorrow and place a stent. He is recommending patient be NPO after midnight and start Flomax 0.4 mg daily we will give this today. We will treat his pain with morphine as needed. Assessment 2. History of reactive airway disease with no current issues Plan: Will continue to monitor and consult RT. He will continue outpatient Advair and rescue inhaler Assessment 3. Previous history of anemia with no evidence of anemia suspect this was related to his previous colon cancer. Assessment 4. Patient with chronic kidney disease, stage III since 2012 with worsening acutely, suspect related to dehydration Plan: Will give IV fluids slowly. Will reassess in a.m.. Assessment 5. Neuropathy no current issues Plan: Will monitor Assessment 6. Insomnia Will prescribe his outpatient trazodone. Will also provide as needed lorazepam Code status is full code 65 minute spent with patient discussing with ER physician, nursing and patient and his and documentation. Time Spent With Patient Critical Care time: I spent a total of [] minutes of critical care time on this patient's care today; this time is exclusive of procedural time.
[2021-06-04] MEDS: SODIUM CHLORIDE 0.45% 1,000 ML 125 ML IV (19:05)
[2021-06-04] MEDS: MORPHINE 2 MG/ML INJ IV ×2 (19:09→22:07)
[2021-06-04] MEDS: TAMSULOSIN 0.4 MG CAPSULE PO (19:10)
[2021-06-04 19:40] LABS: COVID19 - ADMIT (NP swab/PCR) Negative (Negative)
[2021-06-04] MEDS: ONDANSETRON 4 MG/2 ML INJ IV (20:51)
[2021-06-04] MEDS: TRAZODONE 50 MG TABLET PO (21:01)
[2021-06-05] VITALS (18 sets, daily range): BP systolic 83–145; BP diastolic 7–82; PULSE 65–80; RESP 9–18; TEMP 36.3–37.7; O2SAT 90–97; BMI 29.4
--- NOTE | 2021-06-05 | DI.RAD.S_ITS ---
PROCEDURE: XR ABDOMEN 1V INDICATIONS: Left kidney stone. TECHNIQUE: One view of the abdomen acquired. COMPARISON: [facility], CT, CT ABDOMEN PELVIS WO CON, 06/04/2021, 15:47. [facility], CR, XR KUB, 06/05/2021, 10:47. FINDINGS: Single fluoroscopic image of the left mid abdomen demonstrates placement of a left-sided ureteral stent. No definite urolith identified as noted on comparison CT. IMPRESSION: Single limited fluoroscopic image of the left mid abdomen demonstrates placement of a left-sided ureteral stent. Please refer to procedural note for further details. Dictated by: Idris Arredondo M.D. on 06/05/2021 at 20:18 Approved by: Idris Arredondo M.D. on 06/05/2021 at 20:19
--- NOTE | 2021-06-05 | DI.RAD.S_ITS ---
PROCEDURE: XR KUB INDICATIONS: left ureterolithiasis TECHNIQUE: One view of the abdomen acquired. COMPARISON: None. FINDINGS: Surgical changes and devices: Surgical clips in the gallbladder fossa. Bowel: Increased quantity of proximal colon stool. Prominent gaseous distension of sigmoid colon loop. Paucity of gas in the small bowel. Soft tissues: In the expected location of the left mid ureteral stone, previously seen at the L3-4 level, there are no suspicious calcifications visible. No suspicious abdominal calcifications. Visualized solid organ contours appear normal in size. Bones: No suspicious bony lesions. Degenerative endplate spurs and mild disc height loss. There is facet arthropathy at the L4-5 and L5-S1 levels. IMPRESSION: 1. No visible left mid ureteral calcification, although facet sclerosis may obscure its detection. 2. Proximal colonic obstipation. Dictated by: Virginia Batres M.D. on 06/05/2021 at 11:21 Approved by: Virginia Batres M.D. on 06/05/2021 at 11:31
[2021-06-05] MEDS: MORPHINE 2 MG/ML INJ IV ×6 (01:31→14:00)
[2021-06-05] MEDS: SODIUM CHLORIDE 0.45% 1,000 ML 125 ML IV ×2 (01:36→10:44)
[2021-06-05] MEDS: ONDANSETRON 4 MG/2 ML INJ IV (04:52)
[2021-06-05] MEDS: LORazepam 2 MG/ML INJ 0.5 MG IV (05:22)
[2021-06-05 05:55] LABS: Add Manual Diff / Slide Review NO; Basophils Absolute Auto 0 /uL (0-100); Basophils Percent Auto 0.2 % (0-2); Eosinophils Absolute Auto 200 /uL (0-450); Eosinophils Percent Auto 2.1 % (2-4); Hematocrit 37.9 % (41-53); Hemoglobin 13.5 g/dL (13.5-17.5); Lymphocytes Absolute Auto 1000 /uL (1100-4500); Lymphocytes Percent Auto 10.7 % (25-40); Mean Corpuscular HGB Conc 35.6 % (30-36); Mean Corpuscular Hemoglobin 33.5 PG (26-34); Monocytes Absolute Auto 700 /uL (0-900); Monocytes Percent Auto 7.7 % (3-14); Neutrophils Absolute Auto 7200 /uL (1500-7000); Neutrophils Percent Auto 79.3 % (50-75); Platelet Count 160 X10^3/uL (150-400); Red Blood Cell Count 4.03 X10^6/uL (4.5-5.9); Red Cell Distribution Width 13.3 % (11.6-14.8); White Blood Cell Count 9.1 X10^3/uL (4.5-11.0)
[2021-06-05 06:10] LABS: Alanine Aminotransferase 35 IU/L (<50); Albumin 3.9 g/dL (3.5-5.0); Albumin Globulin Ratio 1.2 (1.0-2.8); Alkaline Phosphatase 82 U/L (38-126); Aspartate Aminotransferase 31 IU/L (17-59); BUN Creatinine Ratio 10.8 (6-22); Blood Urea Nitrogen 28 mg/dL (9-20); Calcium 8.8 mg/dL (8.4-10.2); Carbon Dioxide 23 mmol/L (22-32); Chloride 110 mmol/L (98-107); Estimated Glomerular Filt Rate 25.1 mL/min (>60); Globulin 3.2 g/dL (1.7-4.1); Glucose 114 mg/dL (80-110); HEMOLYSIS < 15 (0-50); Potassium 4.3 mmol/L (3.4-5.1); Sodium 136 mmol/L (137-145); Total Protein 7.1 g/dL (6.3-8.2)
--- NOTE | 2021-06-05 06:39 | PC.NURSE ---
Patient alert and oriented x 4, having bouts of pain and nausea throughout the night managed by morphine and zofran. NS running at 125. NPO @ midnight. SBA to bathroom. Shown how to use call light and calling appropriately.
--- NOTE | 2021-06-05 07:54 | PM.PN.1 ---
Subjective Subjective Date Patient Seen: 06/05/21 Time Patient Seen: 07:55 Interval history: Patient's admission and status discussed with Dr. Yoder who saw him yesterday Patient self is more comfortable Lab work shows some slight improvement in renal function with decreased creatinine. Making urine with 700 cc out since admission UA also showed evidence of infection and culture is pending Other than his colon cancer which hopefully is cured or in remission, his asthma has been his biggest problem traditionally. Not currently having any symptoms Exam Vital Signs (past 8 hours): - 06/05/21 01:25 06/05/21 05:17 06/05/21 07:16 Temperature 97.6 F 98.5 F Pulse Rate 72 65 Respiratory Rate 14 14 Blood Pressure 145/66 H 136/82 Pulse Oximetry 96 97 97 Oxygen Delivery Method Room Air Oxygen Flow Rate 0 Objective Labs Result Diagrams: 06/05/21 05:34 06/05/21 05:34 Labs: Laboratory Results - last 24 hr 06/04/21 06/04/21 06/04/21 14:59 15:43 15:43 WBC 9.2 RBC 4.05 L Hgb 13.6 Hct 38.0 L MCV 93.9 MCH 33.6 MCHC 35.8 RDW 13.5 Plt Count 172 Neut % (Auto) 77.8 H Lymph % (Auto) 11.6 L [place] % (Auto) 7.8 Eos % (Auto) 2.2 Baso % (Auto) 0.6 Neut # (Auto) 7200 H Lymph # (Auto) 1100 [place] # (Auto) 700 Eos # (Auto) 200 Baso # (Auto) 100 Sodium 137 Potassium 4.2 Chloride 111 H Carbon Dioxide 20 L BUN 33 H Creatinine 2.70 H Estimated GFR 23.9 L BUN/Creatinine Ratio 12.2 Glucose 122 H Calcium 9.0 Total Bilirubin 0.8 AST 38 ALT 32 Alkaline Phosphatase 70 Total Protein 7.6 Albumin 4.3 Globulin 3.3 Albumin/Globulin Ratio 1.3 Lipase 203 Urine Color Yellow Urine Appearance Clear Urine pH 5.5 Ur Specific [place] 1.020 Urine Protein Trace H Urine Glucose (UA) Negative Urine Ketones Negative Urine Occult Blood 2+ H Urine Nitrate Negative Urine Bilirubin Negative Urine Urobilinogen 0.2 Ur Leukocyte Esterase Trace H Urine RBC 5-10/hpf H Urine WBC 5-10/hpf H Ur Squamous Epith Cells 1-5 /hpf Amorphous Sediment 1+ Urine Bacteria Occasional (0-1) Urine Mucus 1+ H Ur Culture Indicated? Specimen cultured SARS-CoV-2 (PCR) 06/04/21 06/05/21 06/05/21 18:35 05:34 05:34 WBC 9.1 RBC 4.03 L Hgb 13.5 Hct 37.9 L MCV 94.0 MCH 33.5 MCHC 35.6 RDW 13.3 Plt Count 160 Neut % (Auto) 79.3 H Lymph % (Auto) 10.7 L [place] % (Auto) 7.7 Eos % (Auto) 2.1 Baso % (Auto) 0.2 Neut # (Auto) 7200 H Lymph # (Auto) 1000 L [place] # (Auto) 700 Eos # (Auto) 200 Baso # (Auto) 0 Sodium 136 L Potassium 4.3 Chloride 110 H Carbon Dioxide 23 BUN 28 H Creatinine 2.59 H Estimated GFR 25.1 L BUN/Creatinine Ratio 10.8 Glucose 114 H Calcium 8.8 Total Bilirubin 1.0 AST 31 ALT 35 Alkaline Phosphatase 82 Total Protein 7.1 Albumin 3.9 Globulin 3.2 Albumin/Globulin Ratio 1.2 Lipase Urine Color Urine Appearance Urine pH Ur Specific [place] Urine Protein Urine Glucose (UA) Urine Ketones Urine Occult Blood Urine Nitrate Urine Bilirubin Urine Urobilinogen Ur Leukocyte Esterase Urine RBC Urine WBC Ur Squamous Epith Cells Amorphous Sediment Urine Bacteria Urine Mucus Ur Culture Indicated? SARS-CoV-2 (PCR) Negative [facility] Medical History Abnormal LFTs Adenocarcinoma, colon (~02/2019) Anemia Asthma (02/23/11) Chronic renal failure, stage 3 (moderate) (~2012) Elevated prostate specific antigen (PSA) (02/23/11) Gastroesophageal reflux disease without esophagitis (02/23/11) Glaucoma Hyperlipidemia (09/16/12) Neuropathy Seasonal allergies Wears glasses Surgical History History of back surgery History of colectomy Hx of eye surgery Hx of sinus surgery S/P lumbar discectomy Status post laparoscopic cholecystectomy Family History Mother Carcinoid tumor Social History marital status: household members: spouse and children occupational status: employed Smoking Status: Never smoker alcohol intake: never substance use type: does not use Assessment & Plan Assessment & Plan narrative: 1. Nephrolithiasis-as per Urology plan for stent placement to relieve his obstruction etcetera. 2. Acute kidney injury in the setting of patient with chronic renal failure stage 3-continue with IV fluids but hopefully relief of his obstructive uropathy will make a big difference. 3. Question UTI-especially given the fact patient is going to be instrumented with stent placement etcetera I think he should be on antibiotic therapy. I will give him a single dose of Levaquin for now which given his renal dysfunction should cover him and we will need additional doses but frequency and dose will depend on his overall renal function, and how it improves 4. Asthma-stable albuterol as needed 5. Chronic anemia-stable, no evidence of active bleeding etcetera. Likely due to multiple issues but most likely secondary to his previous cancer and treatment, dates back to 2018 at least Note: Greater than 20 minutes total time was spent on day of service, evaluating the patient on the floor, including examining the patient, discussing clinical course with clinical and nursing staff, reviewing clinical course in the computer, preparing documentation and writing orders for continued management of care, discussing status with family as appropriate, reviewing plans for the next 24 hours with both patient/family and nursing staff as appropriate. Quality VTE Deep Vein Thrombosis/Pulmonary Embolism Present on Admission: No
[2021-06-05] MEDS: TAMSULOSIN 0.4 MG CAPSULE PO (08:15)
[2021-06-05] MEDS: levoFLOXacin 500 MG/100 ML PIGGYBACK 100 MG IV (08:15)
[2021-06-05] MEDS: BRIMONIDINE 0.2% OPHTH 5 ML 1 DROPS EYE-LEFT (08:33)
[2021-06-05] MEDS: DORZOLAMIDE 2% OPHTH 10 ML 1 DROPS EYE-LEFT ×2 (08:33→22:28)
--- NOTE | 2021-06-05 11:33 | CM.DANOTE ---
DCP: Case received, EMR reviewed and met with patient. Introduced self and role. Was able to obtain information regarding patient's baseline activity level prior to hospitalization. DCP assessment completed with information currently available. Patient is a 66 year male who admitted yesterday afternoon to the care of the hospitalist team. PCP: Dr. Baez. Payer: confirmed: [employer]. Patient came to the hospital via private vehicle secondary to having left sided flank back discomfort. Patient holds current diagnosis of nephrolithiasis with obstructing stone. Patient will have consult with urologist, Dr. Neville. The plan will be for patient to have a stent. Met with patient in her room. He is alert and oriented and independent at his baseline. Confirmed that he resides. here in [place] with his spouse, Rosa. 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 P: DCP to continue to follow. Patient should be able to go home when he is deemed medically stable. Criselda Evans RN/Manager Process Improvement Discharge Planning/Care Management CM Discharge Assessment Start: 06/05/21 11:30 Freq: Status: Active Protocol: Document 06/05/21 11:31 (Rec: 06/05/21 11:32 [id number]) Discharge Planning Assessment Assigned Finish Inspector Criselda Evans RN/Manager Process Improvement Advance Directives? No Advance Directives on File No History Provided By Patient,Medical Record Prior Living Arrangements House Household Members spouse,children Type of transporation used prior to Drives own vehicle admit Independent with ADL's Yes Is patient alert and oriented? Yes Discharge Plan Home Transportation Arrangement spouse Referrals Initiated None needed Review Status In Process Next Review Type Continued Stay Review
--- NOTE | 2021-06-05 17:11 | PC.NURSE ---
Addendum entered by Conrado Ly R.N. 06/05/21 17:12: Patient picked up for procedure. Original Note: Report given to pre op RN, and patient ready for greens picker. Consent in chart, at bedside.
--- NOTE | 2021-06-05 17:30 | SUR.OPER ---
Lithotomy on padded OR bed, head on pillow, arms secured on padded arm boards at <90 degrees abduction. Legs secured in padded yellow fins stirrups.
--- NOTE | 2021-06-05 17:30 | PM.PREOP ---
Pre-operative Note Interval Note History & Physical reviewed/Exam performed by Physician: Yes Changes to H&P: No
[2021-06-05] MEDS: LACTATED RINGERS 1,000 ML 42 ML IV (17:31)
[2021-06-05] MEDS: ACETAMINOPHEN 325 MG TABLET 975 MG PO (17:34)
--- NOTE | 2021-06-05 18:59 | P.OP_ITS ---
Operative Date/Time/Diagnoses Date of procedure: 06/05/21 Time of procedure: 18:59 Pre-op diagnosis: 1. Obstructing 6 mm left proximal ureteral calculus. 2. DUANE 3. CKD 4. Nephrolithiasis 5. Bladder calculi Post-op diagnosis: same Procedure & Clinicians Procedure: 1. Cystoscopy/left ureteral stone manipulation without removal. 2. Cystoscopy/placement left ureteral stent (6 [place] by 22-32 cm multi-length). Same procedure as scheduled: Yes Indications: 1. Obstructing 6 mm left proximal ureteral calculus. 2. DUANE 3. CKD stage III Surgeon: Fede Neville Click Yes if Unassisted: Yes Anesthesia Type: General Operative Notes Findings: 1. Urethra-normal caliber without annular stricture or lesion. 2. External sphincter coapted with normal overlying urothelium. 3. 6+ prostatic urethral obstructing trilobar hyperplasia. 4. Bladder 1 to 2+ trabeculation. Normal ureteral orifices bilaterally. There are at least 3 large bladder calculi lying dependently in the base of the bladd er. 5. Cloudy obstructive efflux visualized upon placement of left ureteral stent. Closure Type: not applicable Specimen(s): none sent Applied: other (Six [place] by 22-32 cm multi-length stent) Estimated Blood Loss (mL): 0 Blood products transfused: none Procedure in detail: The patient was positioned supine was administered general anesthesia. He was then repositioned semi lithotomy and the lower abdomen, genitalia, and groin were then prepped and draped in sterile fashion. The 22 [place] panendoscope was then passed lower urinary tract with the findings as described above. A 0.35 hybrid guidewire was then selected and advanced into the left collecting system under direct and fluoroscopic guidance. Next, a 6 [place] by 22-32 cm multi- length stent was selected. This was then advanced over the hybrid guidewire under direct and fluoroscopic guidance. NO RETRIEVAL LINE WAS LEFT ATTACHED. The patient was then repositioned in supine, awakened, and then transferred to a [facility] for transport to PACU in stable condition. Complications: none Post-operative Condition: stable Disposition: PACU Plan for aftercare: Admit to acute care
--- NOTE | 2021-06-05 20:13 | SUR.PHASEI ---
Pt transported to room 218 in stable condition. VSS he did not require any supplimental 02 with sats 96% on RA. Update on pt given at BS.
[2021-06-05] MEDS: FLUTICASONE 120 SPRAY/16 GM SPRAY.SUSP NASAL (22:07)
[2021-06-05] MEDS: PANTOPRAZOLE DR 20 MG TABLET PO (22:09)
[2021-06-05] MEDS: TRAZODONE 50 MG TABLET PO (22:09)
[2021-06-05] MEDS: LACTATED RINGERS 1,000 ML 125 ML IV (22:13)
[2021-06-06 03:00] VITALS: BP 118/62; PULSE 71; RESP 18; TEMP 36.5; O2SAT 96
[2021-06-06 05:53] LABS: HEMOLYSIS < 15 (0-50)
[2021-06-06 05:54] LABS: BUN Creatinine Ratio 15.8 (6-22); Blood Urea Nitrogen 31 mg/dL (9-20); Carbon Dioxide 21 mmol/L (22-32); Chloride 111 mmol/L (98-107); Estimated Glomerular Filt Rate 34.6 mL/min (>60); Glucose 131 mg/dL (80-110); Sodium 138 mmol/L (137-145)
[2021-06-06] MEDS: LACTATED RINGERS 1,000 ML 125 ML IV (06:35)
[2021-06-06] MEDS: PANTOPRAZOLE DR 20 MG TABLET PO (06:36)
[2021-06-06 07:30] VITALS: BP 127/73; PULSE 58; RESP 17; TEMP 36.8; O2SAT 98
[2021-06-06 07:42] VITALS: O2SAT 95
--- NOTE | 2021-06-06 07:42 | PM.PN.1 ---
Subjective Subjective Date Patient Seen: 06/06/21 Time Patient Seen: 07:42 Interval history: Postoperative day 1. Status post cystoscopy and placement left ureteral stent for DUANE superimposed on CKD and intractable pain. Patient reports a markedly improved interval since stent placement. Denies pain. Urine is a light maroon. Exam Vital Signs (past 8 hours): - 06/06/21 03:00 Temperature 97.7 F Pulse Rate 71 Respiratory Rate 18 Blood Pressure 118/62 Pulse Oximetry 96 Oxygen Delivery Method Room Air Oxygen Flow Rate 0 Narrative Exam Narrative: Sitting upright in bed in no acute distress. Abdomen is soft and nontender. Objective Labs Result Diagrams: 06/05/21 05:34 06/06/21 05:33 Labs: Laboratory Results - last 24 hr 06/06/21 05:33 Sodium 138 Potassium 5.0 Chloride 111 H Carbon Dioxide 21 L BUN 31 H Creatinine 1.96 H Estimated GFR 34.6 L BUN/Creatinine Ratio 15.8 Glucose 131 H Calcium 9.0 PFSH Medical History Abnormal LFTs Adenocarcinoma, colon (~02/2019) Anemia Asthma (02/23/11) Chronic renal failure, stage 3 (moderate) (~2012) Elevated prostate specific antigen (PSA) (02/23/11) Gastroesophageal reflux disease without esophagitis (02/23/11) Glaucoma Hyperlipidemia (09/16/12) Neuropathy Seasonal allergies Wears glasses Surgical History History of back surgery History of colectomy Hx of eye surgery Hx of sinus surgery S/P lumbar discectomy Status post laparoscopic cholecystectomy Family History Mother Carcinoid tumor Social History marital status: household members: spouse and children occupational status: employed Smoking Status: Never smoker alcohol intake: never substance use type: does not use Assessment & Plan Assessment & Plan narrative: Assessment: 1. Stable postoperative day 1 status post cystoscopy and placement left ureteral stent. 2. DUANE/CKD. This morning's laboratory show an increase in creatinine and decline in GFR. I suspect laboratories will show improvement by late today or certainly by tomorrow now with relief of acute obstruction. Urine culture shows no growth. Plan: 1. May discharge from hospital from standpoint. 2. Outpatient follow-up will be arranged for 2-3 weeks to discuss and schedule left ureteroscopic laser lithotripsy. 3. Future metabolic stone risk evaluation. 4. Future cystoscopy and laser cystolitholapaxy. 5. Will follow-up on history of PSA and known markedly enlarged prostate. Discuss and consider 5 ROYAL therapy-future, outpatient. 6. Recommend he be discharged on tamsulosin 0.4 mg at HS. Time Spent With Patient Critical Care time: I spent a total of [] minutes of critical care time on this patient's care today; this time is exclusive of procedural time. Quality VTE Deep Vein Thrombosis/Pulmonary Embolism Present on Admission: No
--- NOTE | 2021-06-06 07:47 | P.PN_ITS ---
Subjective Subjective Date Patient Seen: 06/06/21 Time Patient Seen: 07:47 Interval history: Patient had stent placed successfully in the OR. Symptoms are much better controlled Renal function improved on lab work Urine culture no growth thus far Exam Vital Signs (past 8 hours): - 06/06/21 03:00 06/06/21 07:30 Temperature 97.7 F 98.3 F Pulse Rate 71 58 L Respiratory Rate 18 17 Blood Pressure 118/62 127/73 Pulse Oximetry 96 98 Oxygen Delivery Method Room Air Oxygen Flow Rate 0 Objective Labs Result Diagrams: 06/05/21 05:34 06/06/21 05:33 Labs: Laboratory Results - last 24 hr 06/06/21 05:33 Sodium 138 Potassium 5.0 Chloride 111 H Carbon Dioxide 21 L BUN 31 H Creatinine 1.96 H Estimated GFR 34.6 L BUN/Creatinine Ratio 15.8 Glucose 131 H Calcium 9.0 PFSH Medical History Abnormal LFTs Adenocarcinoma, colon (~02/2019) Anemia Asthma (02/23/11) Chronic renal failure, stage 3 (moderate) (~2012) Elevated prostate specific antigen (PSA) (02/23/11) Gastroesophageal reflux disease without esophagitis (02/23/11) Glaucoma Hyperlipidemia (09/16/12) Neuropathy Seasonal allergies Wears glasses Surgical History History of back surgery History of colectomy Hx of eye surgery Hx of sinus surgery S/P lumbar discectomy Status post laparoscopic cholecystectomy Family History Mother Carcinoid tumor Social History marital status: household members: spouse and children occupational status: employed Smoking Status: Never smoker alcohol intake: never substance use type: does not use Assessment & Plan Assessment & Plan narrative: 1. Nephrolithiasis with obstructive uropathy-improving even prior to stent placement now with successful stent placement an adequate drainage as per Urology. Lab work shows improvement in renal function. Will need to continue on tamsulosin or similar and further follow-up regarding his kidney stone as per Urology 2. Acute kidney injury-numbers are improved close to baseline. Creatinine clearance now in excess of 50. Patient probably okay to go home as symptoms are improved and renal function is either at baseline or certainly headed in that direction 3. Asthma-not an active issue. Continue patient's usual inhalers Overall patient is improved and can likely be discharged home to continue follow-up with urology as an outpatient. Patient's previous urologist was at [facility] but has now left the area and I believe would best be served by being connected to [facility] urology and we will anticipate a follow-up appointment with local urology, regarding his retained stone and now stent in the ureter. Time Spent With Patient Critical Care time: I spent a total of [] minutes of critical care time on this patient's care today ; this time is exclusive of procedural time. Quality VTE Deep Vein Thrombosis/Pulmonary Embolism Present on Admission: No
--- NOTE | 2021-06-06 08:12 | P.DS_ITS ---
History of Present Illness History of Present Illness Date Patient Seen: 06/06/21 Time Patient Seen: 08:13 Chief complaint: Left Sided Back Pain Narrative: Patient admitted because of back pain found to be due to kidney stone. Also showed evidence of acute kidney injury likely due to obstructive uropathy. Admitted for symptom control and plan for relief of his obstructive uropathy by Urology. Discharge Providers Provider Date of admission: 06/04/21 17:27 Discharge Date: 06/06/21 Primary care physician: Cruz Baez MD Consults: 06/04/21 18:27 Consult to Physician Routine Comment: Consulting Provider: Fede Neville Reason for consultation: nephrolithiasis Has provider been notified: Yes Discharge provider: Cruz Baez MD Summary Hospital Course Discharge Diagnosis: 1. Obstructive uropathy 2. Acute kidney injury 3. Chronic renal failure stage 3 a 4. Nephrolithiasis 5. History of colon cancer, not active 6. Elevated PSA 7. GERD Hospital Course: Patient was admitted to the hospital floor placed on some gentle IV fluids with some minimal improvement in renal function. Symptoms are controlled parental medications. He was seen in consultation by Urology subsequent had stent carol cement. Between this and his IV fluids his renal function improved significantly returning to near baseline prior to discharge Patient's initial urinalysis showed evidence of infection but subsequent cultures were negative. There is not obvious pus within the ureter when stent was placed. He did receive a single dose of levofloxacin but was not felt to need ongoing antibiotic therapy for infection given lack of growth on culture and clinical findings Patient be discharged home to follow-up closely with Urology. He will continue on tamsulosin. He will need to have his stone dealt with as well as the stent eventually removed. His other medical problems including his asthma and his reflux disease are stable. Does have history of colon cancer felt to be in remission if not cured and not active during this hospitalization Status at Discharge Cognitive/behavioral status at discharge: oriented Functional status at discharge: independent ambulation Overall status at discharge: patient is back to baseline Exam Vital Signs (past 8 hours): - 06/06/21 03:00 06/06/21 07:30 Temperature 97.7 F 98.3 F Pulse Rate 71 58 L Respiratory Rate 18 17 Blood Pressure 118/62 127/73 Pulse Oximetry 96 98 Oxygen Delivery Method Room Air Oxygen Flow Rate 0 Objective Labs Result Diagrams: 06/05/21 05:34 06/06/21 05:33 Labs: Laboratory Results - last 24 hr 06/06/21 05:33 Sodium 138 Potassium 5.0 Chloride 111 H Carbon Dioxide 21 L BUN 31 H Creatinine 1.96 H Estimated GFR 34.6 L BUN/Creatinine Ratio 15.8 Glucose 131 H Calcium 9.0 PFSH Medical History Abnormal LFTs Adenocarcinoma, colon (~02/2019) Anemia Asthma (02/23/11) Chronic renal failure, stage 3 (moderate) (~2012) Elevated prostate specific antigen (PSA) (02/23/11) Gastroesophageal reflux disease without esophagitis (02/23/11) Glaucoma Hyperlipidemia (09/16/12) Neuropathy Seasonal allergies Wears glasses Surgical History History of back surgery History of colectomy Hx of eye surgery Hx of sinus surgery S/P lumbar discectomy Status post laparoscopic cholecystectomy Family History Mother Carcinoid tumor Social History marital status: household members: spouse and children occupational status: employed Smoking Status: Never smoker alcohol intake: never substance use type: does not use Discharge Plan Discharge Plan Patient Disposition: Home Discharge orders & Medications Prescriptions: New tamsulosin [Flomax] 0.4 mg Capsule 0.4 mg PO BEDTIME Qty: 30 3RF Continued latanoprost 0.005 % drops 1 drp EYE-LEFT BEDTIME Qty: 0 0RF fluticasone propionate 50 mcg/actuation spray,suspension 1 spray Intranasal BID Qty: 16 11RF (DME) Aerochamber MV Spacer See Rx Instructions .ROUTE .MEDSUPPLY Qty: 1 0RF Rx Instructions: Use as needed with inhaler albuterol sulfate 90 mcg/actuation HFA aerosol inhaler 2 inh inhalation Q4H PRN (Reason: shortness of breath or wheezing) Qty: 18 1RF Rx Instructions: Short fill while mail order comes in. 09/30/20 omeprazole 20 mg tablet,delayed release (DR/EC) 20 mg PO BID Qty: 180 3RF albuterol sulfate [Ventolin HFA] 90 mcg/actuation HFA aerosol inhaler 2 puff inhalation Q4HP PRN (Reason: Shortness Of Breath) Qty: 54 11RF trazodone 50 mg tablet 50 mg PO HS Qty: 90 1RF albuterol sulfate 0.63 mg/3 mL solution for nebulization 0.63 mg continuous nebulization Q4HP PRN (Reason: Shortness Of Breath) Qty: 90 3RF dorzolamide 2 % drops 1 drp EYE-LEFT BID 0RF brimonidine 0.025 % drops 1 drp EYE-LEFT TID 0RF ipratropium-albuterol 0.5 mg-3 mg(2.5 mg base)/3 mL solution for nebulization 3 ml INHALATION Q6-8H PRN (Reason: Shortness Of Breath) 0RF inhaler,assist devices,access 1 unit inhalation DIRECTED 0RF ferrous sulfate 325 mg (65 mg iron) tablet 325 mg PO DAILY 0RF Follow up/Referrals: Fede Neville MD [Physician] - 1 Week Cruz Baez MD [Primary Care Provider] - Discharge Health Status Multidrug resistant organism: No MDRO Diet/Activity/Treatments Diet: Diet as Tolerated Visit Report/Discharge Packet Instructions: DI for Kidney Stones, DI for Cystoscopy, Acute Kidney Injury, DI for Urinary Tract Infection (UTI), DI for Ureteral Stent Placement Discharge Data Primary Care Provider: Cruz Baez Quality VTE Deep Vein Thrombosis/Pulmonary Embolism Present on Admission: No
[2021-06-06] MEDS: TAMSULOSIN 0.4 MG CAPSULE PO (09:33)
[2021-06-06] MEDS: FLUTICASONE 120 SPRAY/16 GM SPRAY.SUSP NASAL (09:34)
[2021-06-06] MEDS: FERROUS SULFATE 325 MG TABLET PO (09:34)
[2021-06-06] MEDS: DORZOLAMIDE 2% OPHTH 10 ML 1 DROPS EYE-LEFT (09:35)
--- NOTE | 2021-06-06 12:49 | PC.NURSE ---
Discharge: Pt feels ready to d/c to home. D/c packet reviewed. Tolerates diet w/out problems. Vds now w/out pain or any discomfort. Stent teaching given. Rx has been esent. Questions answered. Pt spouse present at time of teaching. Pt d/c to home via auto w/spouse.
== END 2021-06-06 11:25 | disposition home or self-care (01) | DRG 694 ==
LOC: ED 17:17 → AC 17:28
PROVIDERS: Emergency Medicine; Specialist; Admitting Provider Family Medicine; Emergency Provider Physician Assistant; PCP Internal Medicine; Referring Provider Physician Assistant; Visit Provider Internal Medicine
PROC: 0T9780Z Drainage of Left Ureter with Drainage Device, Via Natural or Artificial Opening Endoscopic (ICD-10-PCS; principal; 2021-06-05 15:20)
DX: N13.2 Hydronephrosis with renal and ureteral calculous obstruction (principal); N17.9 Acute kidney failure, unspecified; N21.0 Calculus in bladder; J45.909 Unspecified asthma, uncomplicated; N40.1 Benign prostatic hyperplasia with lower urinary tract symptoms; N18.31 Chronic kidney disease, stage 3a; K21.9 Gastro-esophageal reflux disease without esophagitis; D64.9 Anemia, unspecified; Z20.822 Contact with and (suspected) exposure to COVID-19
CPT/HCPCS: 36415; 52330; 52332; 74018; 74176; 76000; 80048; 80053; 81001; 81003; 83690; 85025; 87086; 87635; 93005; 93010; 94760; 94762; 96374; 99232; 99238; 99284; C9803; A9270; J1100; J1956; J2060; J2250; J2270; J2405; J2704; J3010; J7050

== ENCOUNTER → 2021-06-21 09:19 | Outpatient (CLI) | payer OTHER, SELFPAY ==
[2021-06-04 18:01] VITALS: BMI 29.4
--- NOTE | 2021-06-21 09:20 | DI.RAD.S_ITS ---
PROCEDURE: XR KUB INDICATIONS: Kidney stone TECHNIQUE: One view of the abdomen acquired. COMPARISON: [facility], CT, CT ABDOMEN PELVIS WO CON, 06/04/2021, 15:47. [facility], CR, XR KUB, 06/05/2021, 10:47. FINDINGS: Surgical changes and devices: Left ureterovesicular stent is present. Bowel: Bowel gas pattern is normal. Soft tissues: There are several punctate areas of calcification overlying the right kidney, partially obscured by overlying stool. There is an appearance of calcifications overlying the bladder, noting bladder calcifications on prior CT. Previous left ureteral calcification is not visualized. Visualized solid organ contours appear normal in size. Bones: No suspicious bony lesions. IMPRESSION: Calcifications overlying the bladder and nonvisualization of previous left ureteral calcification. Dictated by: Elena Mojica M.D. on 06/21/2021 at 17:23 Approved by: Elena Mojica M.D. on 06/21/2021 at 17:24
== END ==
PROVIDERS: PCP Internal Medicine; Referring Provider Specialist; Visit Provider Specialist
DX: N20.0 Calculus of kidney (principal)
CPT/HCPCS: 74018

== ENCOUNTER → 2021-06-28 14:40 | Outpatient (CLI) | payer OTHER, SELFPAY ==
[2021-06-04 18:01] VITALS: BMI 29.4
== END ==
PROVIDERS: PCP Internal Medicine; Visit Provider Specialist
DX: R30.0 Dysuria (principal); N20.0 Calculus of kidney; N21.0 Calculus in bladder; R97.20 Elevated prostate specific antigen [PSA]; N40.1 Benign prostatic hyperplasia with lower urinary tract symptoms; N13.8 Other obstructive and reflux uropathy; Z96.0 Presence of urogenital implants
CPT/HCPCS: 51798; 81002; 87086

== ENCOUNTER → 2021-07-08 08:37 | Outpatient (CLI) | payer OTHER, SELFPAY ==
[2021-06-28 15:31] VITALS: BMI 29.4
--- NOTE | 2021-07-08 08:38 | DI.MRI.S_ITS ---
PROCEDURE: MR PELIS WO/W CON INDICATIONS: Kidney/ Bladder stones TECHNIQUE: Coronal HASTE, axial T1 FSE with fat saturation, 3-plane nonbreath-hold T2 FSE. After the administration of contrast, dynamic axial, delayed axial and coronal VIBE or 2-D FLASH with fat saturation through the pelvis. Optional diffusion weighted imaging and ADC may be performed. COMPARISON: None. FINDINGS: Image quality: Diffusion weighted and dynamic contrast enhanced images are diagnostic. Prostate: Gland size is 5.4 x 6.6 x 6.7 cm; ellipsoid gland volume is 124 mL. There is nodular hypertrophy of the transition zone, hypertrophy of the median lobe, and a few partially exophytic nodules near the seminal vesicle junctions. Lesion size(s): Lesion 1: 1.1 x 1.3 x 1.3 cm Lesion location(s) (sector): Lesion 1: Left posterolateral central zone/peripheral zone at the base just lateral to the seminal vesicle insertion site. Lesion description: Lesion 1: Round, circumscribed, and in capsulated T2 hypointensity without disruption of the capsule. T2 weighted imaging (T2WI) morphology score: Lesion 1: Two Diffusion weighted imaging (DWI) morphology score: Lesion 1: Three Dynamic contrast enhancement (DCE): Lesion 1: Absent Lesion PI-RADS score: Lesion 1: PI-RADS two Genitourinary system: There are four stones dependently within the urinary bladder measuring 2.9, 2.0, 1.8, and 1.3 cm. The bladder wall is uniform, normal in thickness. No bladder diverticula. Additionally, there is a 5.6 mm stone in the distal left ureter in the visible portion of the left ureter proximal to this is mildly dilated and demonstrates slight urothelial enhancement. There is trace periureteric inflammation at the level of the pelvic inlet. The right distal ureter is nondistended. Bowel and peritoneum: No pathologic free pelvic fluid. Inferior colon and small bowel loops are normal in caliber. Nodes and vessels: No pelvic or inguinal adenopathy by size criteria. Iliac vessels are normal in caliber. Soft tissues: No inguinal hernias. Bones: Marrow demonstrates normal overall signal, without lesions to suggest metastases. IMPRESSION: 1. 1.3 cm left base PI-RADS two nodule with morphology most suggestive of an extruded BPH nodule. 2. Moderate prostatomegaly with morphology of nodular transition zone hypertrophy. 3. Four dependently layering bladder calculi measuring up to 2.9 cm. 4. 5.6 mm partially obstructing left distal ureteral stone causing hydroureter and mild periureteric inflammation. Dictated by: Virginia Batres M.D. on 07/10/2021 at 9:21 Approved by: Virginia Batres M.D. on 07/10/2021 at 9:46
== END ==
PROVIDERS: PCP Internal Medicine; Referring Provider Specialist; Visit Provider Specialist
DX: N13.2 Hydronephrosis with renal and ureteral calculous obstruction (principal); N21.0 Calculus in bladder; N40.1 Benign prostatic hyperplasia with lower urinary tract symptoms; N13.8 Other obstructive and reflux uropathy; R97.20 Elevated prostate specific antigen [PSA]
CPT/HCPCS: 72197; A9579

== ENCOUNTER → 2021-07-11 13:01 | Outpatient (CLI) | payer OTHER, SELFPAY ==
[2021-06-28 15:31] VITALS: BMI 29.4
--- NOTE | 2021-07-11 13:11 | DI.RAD.S_ITS ---
PROCEDURE: XR KUB INDICATIONS: Kidney stone TECHNIQUE: One view of the abdomen acquired. COMPARISON: [facility], , XR KUB, 06/21/2021, 9:36. FINDINGS: Surgical changes and devices: Right upper quadrant surgical clips in left ureteral stent in place, unchanged the prior exam. Bowel: Bowel gas pattern is normal. Soft tissues: No suspicious abdominal calcifications. Visualized solid organ contours appear normal in size. Multiple bladder calculi remain unchanged from the prior. Bones: No suspicious bony lesions. IMPRESSION: Stable left ureteral stent and multiple bladder calculi Approved by: Jersey Maria M.D. on 07/11/2021 at 16:49
[2021-07-11 15:06] LABS: Prostate Specific Antigen 13.4 ng/mL (0.10-4.00)
== END ==
LOC: LAB 13:06 → RAD 13:10
PROVIDERS: PCP Internal Medicine; Referring Provider Specialist; Visit Provider Specialist
DX: N20.1 Calculus of ureter (principal); N21.0 Calculus in bladder; R97.20 Elevated prostate specific antigen [PSA]; Z96.0 Presence of urogenital implants
CPT/HCPCS: 36415; 74018; 84153

== ENCOUNTER → 2021-07-19 08:09 | Outpatient (CLI) | payer OTHER, SELFPAY ==
[2021-06-28 15:31] VITALS: BMI 29.4
== END ==
PROVIDERS: PCP Internal Medicine; Visit Provider Specialist
DX: N20.1 Calculus of ureter (principal); N21.0 Calculus in bladder; R30.0 Dysuria; N18.30 Chronic kidney disease, stage 3 unspecified; N40.1 Benign prostatic hyperplasia with lower urinary tract symptoms; N13.8 Other obstructive and reflux uropathy; R97.20 Elevated prostate specific antigen [PSA]
CPT/HCPCS: 51798; 81002; 87086

== ENCOUNTER → 2021-07-28 09:45 | Outpatient (CLI) | payer OTHER, SELFPAY ==
[2021-06-28 15:31] VITALS: BMI 29.4
[2021-07-28 10:05] LABS: COVID19 -Nasal RAPID Negative (Negative)
== END ==
PROVIDERS: PCP Internal Medicine; Visit Provider Specialist
DX: Z20.822 Contact with and (suspected) exposure to COVID-19 (principal)
CPT/HCPCS: 87635; C9803

== ENCOUNTER 2021-07-31 06:26 | Day surgery (SDC) | payer OTHER, SELFPAY ==
[2021-06-28 15:31] VITALS: BMI 29.4
[2021-07-25 08:16] VITALS: BMI 29.8
[2021-07-31] VITALS (9 sets, daily range): BP systolic 107–158; BP diastolic 57–80; PULSE 60–75; RESP 10–19; TEMP 36.1–36.6; O2SAT 95–99; BMI 29.8
--- NOTE | 2021-07-31 | DI.RAD.S_ITS ---
PROCEDURE: XR KUB INDICATIONS: Left ureteral calculi TECHNIQUE: One view of the abdomen acquired. COMPARISON: [facility], CT, CT ABDOMEN PELVIS WO CON, 06/04/2021, 15:47. [facility], CR, XR KUB, 07/11/2021, 13:00. FINDINGS: Surgical changes and devices: Left ureterovesicular stent is unchanged. Cholecystectomy clips are noted. Bowel: Bowel gas pattern is normal. Soft tissues: Calcifications appear overlying the bladder. No definitive calcifications are noted overlying the ureters. Visualized solid organ contours appear normal in size. Bones: No suspicious bony lesions. IMPRESSION: Calcifications overlying the bladder as previously noted. No definitive calcifications overlying the ureters. Dictated by: Elena Mojica M.D. on 07/31/2021 at 8:41 Approved by: Elena Mojica M.D. on 07/31/2021 at 8:43
--- NOTE | 2021-07-31 07:09 | PM.PREOP ---
Pre-operative Note COVID-19 Criteria for continued procedure: Expected advancement of disease process, Possibility delay results in more complex future surgery or treatment, Continuing or worsening of significant or severe pain, Delay expected to result in less-positive ultimate med/surg outcome and Non-surgical alternatives not available or appropriate per current SOC Interval Note History & Physical reviewed/Exam performed by Physician: Yes Changes to H&P: No
[2021-07-31] MEDS: LACTATED RINGERS 1,000 ML 42 ML IV (07:10)
[2021-07-31] MEDS: ACETAMINOPHEN 325 MG TABLET 975 MG PO (07:28)
[2021-07-31] MEDS: GABAPENTIN 300 MG CAPSULE PO (07:28)
--- NOTE | 2021-07-31 07:51 | SUR.OPER ---
Lithotomy on padded OR bed, head on pillow, arms secured on padded arm boards at <90 degrees abduction. Legs secured in padded yellow fins stirrups.
[2021-07-31] MEDS: CEFAZOLIN 2 GM/20 ML SYRINGE IV (08:37)
--- NOTE | 2021-07-31 09:52 | P.OP_ITS ---
Operative Date/Time/Diagnoses Date of procedure: 07/31/21 Time of procedure: 09:53 Pre-op diagnosis: 1. 6 mm left distal ureteral calculus. 2. History of acute kidney injury. Post-op diagnosis: same Procedure & Clinicians Procedure: 1. Cystoscopy/left ureteroscopic laser lithotripsy. 2. Cystoscopy/removal left ureteral stent Same procedure as scheduled: Yes Indications: 1. 6 mm left distal ureteral calculus. 2. History of acute kidney injury. 3. Retained left ureteral stent. Surgeon: Fede Neville Click Yes if Unassisted: Yes Anesthesia Type: General Operative Notes Findings: 1. Urethra-normal caliber without annular stricture or lesion. 2. External sphincter-coapted with normal overlying urothelium. 3. Prostate 5+ cm length with obstructing trilobar hyperplasia. Urothelium is hypervascular with several benign inflammatory mucosal polyps seen. 4. Bladder-1 to 2+ trabeculation. Therefore large, ovoid calculi residing dependently in the base the bladder. Right ureteral orifice normal position and configuration. Left ureteral orifice has indwelling left ureteral stent with impressive encrustations. 5. Left ureter-index calculus encountered 3-4 cm above the left ureterovesical junction. Closure Type: not applicable Specimen(s): none sent Estimated Blood Loss (mL): 2 Blood products transfused: none Procedure in detail: The patient was positioned in supine was administered general anesthesia. He was then repositioned semi lithotomy, the lower abdomen, genitalia, and groin were prepped and draped in sterile fashion. Next a 22 Ukrainian panendoscope was passed lower urinary tract with the findings as described above. The foreign body graspers then used to engage the indwelling stent and the distal tip was brought out beyond the meatus. An attempt to pass a 0.35 hybrid wire was undertaken but unsuccessful due to encrustations within the lumen of the stent. Next, a 5 Ukrainian pollock catheter was positioned within the working channel of the cystoscope and the cystoscope was passed back and lower urinary tract. The hybrid guidewire was then advanced through the Shelton catheter and guided into left ureteral orifice alongside the indwelling retained stent. The wire was advanced proximally under direct and fluoroscopic guidance. The Shelton catheter was backloaded off the wire and the retained ureteral stent was then removed in its entirety and discarded. The hybrid guidewire was then secured to the operative drape. The semi rigid ureteral scope was then prepared and passed lower urinary tract and advanced in left distal ureter with the findings as described above. A 200 micron laser fiber was then requested. All operating room personnel and patient were fitted with laser safety eyewear. Laser lithotripsy was then commenced with excellent stone fragmentation. The vast majority of the tiny chips and and sand were clear from the distal ureter using a combination of hydrostatic and mechanical measures. Intraoperative decision was made to not replace the ureteral stent. The semi-rigid ureteroscope and guidewire were then removed. Patient was then repositioned in supine, was awakened common then was transferred to [facility] for transport to PACU. Complications: none Post-operative Condition: stable Disposition: PACU Plan for aftercare: Discharge home.
[2021-07-31] MEDS: FUROSEMIDE 20 MG/2 ML VIAL IV (10:10)
--- NOTE | 2021-07-31 10:33 | SUR.PHASEII ---
SBAR report to Juan M BARCLAY at bedside.
== END 2021-07-31 11:14 | disposition home or self-care (01) ==
PROVIDERS: PCP Internal Medicine; Referring Provider Specialist; Visit Provider Specialist
PROC: 0TF78ZZ Fragmentation in Left Ureter, Via Natural or Artificial Opening Endoscopic (ICD-10-PCS; CPT 52353; principal; 2021-07-31 07:45)
DX: N20.1 Calculus of ureter (principal); N21.0 Calculus in bladder; N18.30 Chronic kidney disease, stage 3 unspecified; N17.9 Acute kidney failure, unspecified; N40.0 Benign prostatic hyperplasia without lower urinary tract symptoms; N32.89 Other specified disorders of bladder; Z96.0 Presence of urogenital implants
CPT/HCPCS: 52353; 74018; 76000; J0690; J1100; J1940; J2405; J2704

== ENCOUNTER → 2021-09-08 09:32 | Outpatient (CLI) | payer OTHER, SELFPAY ==
[2021-06-28 15:31] VITALS: BMI 29.4
--- NOTE | 2021-09-08 09:33 | DI.RAD.S_ITS ---
PROCEDURE: XR KUB INDICATIONS: calculus of kidney TECHNIQUE: One view of the abdomen acquired. renal stone identified by plain FINDINGS: Surgical changes and devices: Cholecystectomy clips. Bowel: Bowel gas pattern is normal. Soft tissues: Multiple large calcifications projecting over the urinary bladder stable. Visualized solid organ contours appear normal in size. Bones: No suspicious bony lesions. IMPRESSION: Urinary bladder stones stable compared to July 31, 2021. Dictated by: L film radiograph. tita Garcia MD, PhD on 09/08/2021 at 11:17 Approved by: Casandra Garcia MD, PhD on 09/08/2021 at 11:18
== END ==
PROVIDERS: PCP Internal Medicine; Referring Provider Specialist; Visit Provider Specialist
DX: N21.0 Calculus in bladder (principal); N20.0 Calculus of kidney
CPT/HCPCS: 74018

== ENCOUNTER → 2021-09-12 15:07 | Outpatient (CLI) | payer OTHER, SELFPAY ==
[2021-06-28 15:31] VITALS: BMI 29.4
[2021-09-12 16:12] LABS: Calcium 8.9 mg/dL (8.4-10.2); Uric Acid 6.5 mg/dL (3.5-8.5)
[2021-09-13 07:57] LABS: Parathyroid Hormone Int 85 pg/mL (15-65)
== END ==
PROVIDERS: PCP Internal Medicine; Referring Provider Specialist; Visit Provider Specialist
DX: N20.0 Calculus of kidney (principal)
CPT/HCPCS: 36415; 82310; 83970; 84550

== ENCOUNTER → 2021-10-11 13:05 | Outpatient (CLI) | payer OTHER, SELFPAY ==
[2021-06-28 15:31] VITALS: BMI 29.4
[2021-10-11 14:29] LABS: Hematocrit 39.9 % (41-53); Hemoglobin 14.3 g/dL (13.5-17.5)
[2021-10-11 15:40] LABS: Creatinine Urine Random 108.4 mg/dL; Protein (Total) Urine Random 9 mg/dL (0-12); Protein Creatinine Ratio Urine 0.08 GRAM/24H
[2021-10-11 16:16] LABS: BUN Creatinine Ratio 15.1 (6-22); Blood Urea Nitrogen 23 mg/dL (9-20); Calcium 9.2 mg/dL (8.4-10.2); Carbon Dioxide 23 mmol/L (22-32); Chloride 109 mmol/L (98-107); Estimated Glomerular Filt Rate 51 mL/min (>60); Glucose 92 mg/dL (80-110); HEMOLYSIS < 15 (0-50); Potassium 4.9 mmol/L (3.4-5.1); Sodium 142 mmol/L (137-145)
== END ==
PROVIDERS: PCP Internal Medicine; Referring Provider Student in an Organized Health Care Education/Training Program; Visit Provider Student in an Organized Health Care Education/Training Program
DX: N05.9 Unspecified nephritic syndrome with unspecified morphologic changes (principal); D64.9 Anemia, unspecified; R80.9 Proteinuria, unspecified
CPT/HCPCS: 36415; 80048; 82570; 84156; 85014; 85018

== ENCOUNTER → 2022-02-06 13:40 | Outpatient (CLI) | payer OTHER, SELFPAY ==
[2021-06-28 15:31] VITALS: BMI 29.4
[2022-02-06 14:30] LABS: Hematocrit 40.1 % (41-53); Hemoglobin 14.3 g/dL (13.5-17.5)
[2022-02-06 14:39] LABS: Appearance Urine UA CLEAR; Bilirubin Urine UA NEGATIVE (NEGATIVE); Color Urine UA YELLOW; Glucose Urine UA NEGATIVE (Negative); Ketones Urine UA NEGATIVE (NEGATIVE); Leukocyte Esterase Urine UA 1+ (NEGATIVE); Nitrite Urine UA NEGATIVE (Negative); Occult Blood Urine UA 3+ (Negative); Protein Urine UA NEGATIVE (Negative); Urobilinogen Urine UA 0.2 E.U./dL (0.2)
[2022-02-06 14:53] LABS: RBC Urine 10-30/HPF (0-5/HPF); WBC Urine 1-5/HPF (0-5/HPF)
[2022-02-06 14:54] LABS: Bacteria Urine Occasional (0-1); Culture Indicated Urine Specimen Cultured; Squamous Epithelial Cell Urine None Seen (0-5/HPF)
[2022-02-06 15:45] LABS: Creatinine Urine Random 135.3 mg/dL; Protein (Total) Urine Random 16 mg/dL (0-12); Protein Creatinine Ratio Urine 0.11 GRAM/24H
[2022-02-06 15:47] LABS: BUN Creatinine Ratio 12.2 (6-22); Blood Urea Nitrogen 17 mg/dL (9-20); Calcium 8.8 mg/dL (8.4-10.2); Carbon Dioxide 22 mmol/L (22-32); Chloride 105 mmol/L (98-107); Estimated Glomerular Filt Rate 57 mL/min (>60); Glucose 97 mg/dL (80-110); HEMOLYSIS 31 (0-50); Phosphorous 3.2 mg/dL (2.3-3.7); Potassium 4.2 mmol/L (3.4-5.1); Sodium 142 mmol/L (137-145)
[2022-02-07 08:56] LABS: Parathyroid Hormone Int 82 pg/mL (15-65)
== END ==
PROVIDERS: PCP Internal Medicine; Referring Provider Student in an Organized Health Care Education/Training Program; Visit Provider Student in an Organized Health Care Education/Training Program
DX: N05.9 Unspecified nephritic syndrome with unspecified morphologic changes (principal); D64.9 Anemia, unspecified; N30.00 Acute cystitis without hematuria; R80.9 Proteinuria, unspecified; E83.30 Disorder of phosphorus metabolism, unspecified
CPT/HCPCS: 36415; 80048; 81001; 82570; 83970; 84100; 84156; 85014; 85018; 87086

== ENCOUNTER → 2022-03-22 14:38 | Outpatient (CLI) | payer OTHER, SELFPAY ==
[2021-06-28 15:31] VITALS: BMI 29.4
--- NOTE | 2022-03-22 14:39 | DI.CT.S_ITS ---
PROCEDURE: CT KIDNEY URETER BLADDER (KUB) INDICATIONS: KIDNEY STONE TECHNIQUE: Axial sections were acquired from the lung bases to the pubic symphysis. Coronal and sagittal reformats were performed. For radiation dose reduction, the following was used: automated exposure control, adjustment of mA and/or kV according to patient size. COMPARISON: [facility], CR, XR KUB, 09/08/2021, 9:26. FINDINGS: Image quality: Excellent. Lung bases: Unremarkable. Heart: No significant findings. 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 Three nonobstructing right upper pole calculi, the largest measuring 4 mm. No hydronephrosis. Probable cortical cyst arising from the lower pole. Right Ureter: There is a 5 mm calcification in the nondilated right upper pole ureter in the midportion, proximal at the L4 level. Hounsfield unit measures 276. The ureters appear to be duplicated to the level of the UVJ where the insertion the lower pole ureter is not well seen. Left Kidney: Non duplicated intrarenal collecting system. No intrarenal calculi. Cortical cyst arising from the upper and medial lower pole of the left kidney. No hydronephrosis. Left Ureter: No hydroureter or ureteral calculi. Bladder: Urinary bladder is partially filled. There are four smooth stones layering dependently in the urinary bladder, the largest measuring 2.9 cm, the smallest measuring about 1.1 cm. Hounsfield units range from 575-598. ABDOMEN: Liver: Liver is slightly enlarged and mildly diffusely hypodense. Gallbladder: Gallbladder is surgically absent. Biliary ducts: Biliary system is nondilated. Pancreas: Normal pancreas. Spleen: Mildly enlarged spleen at 14.2 cm in AP diameter. Adrenal Glands: No adrenal nodules. Stomach and Bowel: Stomach, small bowel loops, and colon are unremarkable. Normal appendix. Peritoneum: No abnormal intraperitoneal fluid. No free air. Ventral Wall: Prior ventral hernia repair. Abdominal Nodes: No enlarged retroperitoneal or mesenteric lymph nodes. Vessels: Aorta and inferior vena cava are normal in size. PELVIS: Pelvic Organs: Moderate prostatomegaly measuring approximately 6.8 x 6.9 x 5.1 cm. Pelvic Nodes: Unremarkable. Miscellaneous: No inguinal hernias are seen. Bones: Degenerative disc height loss L4-5. No suspicious bone lesions. IMPRESSION: 1. Nonobstructing 5 mm right mid ureteral calculus in the upper pole ureter at a mid level. 2. Four chronic smooth bladder calculi. 3. 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 4. Prostatomegaly. 5. Hepatosplenomegaly and hepatic steatosis. Dictated by: Virginia Batres M.D. on 03/22/2022 at 16:01 Approved by: Virginia Batres M.D. on 03/22/2022 at 16:18
== END ==
PROVIDERS: PCP Internal Medicine; Referring Provider Specialist; Visit Provider Specialist
DX: N20.2 Calculus of kidney with calculus of ureter (principal); N21.0 Calculus in bladder; Q62.5 Duplication of ureter; Q63.0 Accessory kidney; N28.1 Cyst of kidney, acquired; N40.0 Benign prostatic hyperplasia without lower urinary tract symptoms; R16.2 Hepatomegaly with splenomegaly, not elsewhere classified; K76.0 Fatty (change of) liver, not elsewhere classified; Z90.49 Acquired absence of other specified parts of digestive tract
CPT/HCPCS: 74176

== ENCOUNTER → 2022-05-01 12:26 | Outpatient (CLI) | payer OTHER, SELFPAY ==
[2021-06-28 15:31] VITALS: BMI 29.4
[2022-05-01 16:58] LABS: Prostate Specific Antigen 18.8 ng/mL (0.10-4.00)
== END ==
PROVIDERS: PCP Internal Medicine; Referring Provider Specialist; Visit Provider Specialist
DX: R97.20 Elevated prostate specific antigen [PSA] (principal)
CPT/HCPCS: 36415; 84153

== ENCOUNTER → 2022-05-08 09:16 | Outpatient (CLI) | payer OTHER, SELFPAY ==
[2021-06-28 15:31] VITALS: BMI 29.4
== END ==
PROVIDERS: PCP Internal Medicine; Visit Provider Specialist
DX: N20.2 Calculus of kidney with calculus of ureter (principal); N21.0 Calculus in bladder; N40.1 Benign prostatic hyperplasia with lower urinary tract symptoms; N13.8 Other obstructive and reflux uropathy; R97.20 Elevated prostate specific antigen [PSA]
CPT/HCPCS: 51798; 81002; 87086; 99215

== ENCOUNTER → 2022-05-17 15:41 | Outpatient (CLI) | payer OTHER, SELFPAY ==
[2021-06-28 15:31] VITALS: BMI 29.4
--- NOTE | 2022-05-17 15:47 | DI.CT.S_ITS ---
PROCEDURE: CT KIDNEY URETER BLADDER (KUB) INDICATIONS: DX 1. right flank pain and 2. history of stones TECHNIQUE: Axial sections were acquired from the lung bases to the pubic symphysis. Coronal and sagittal reformats were performed. For radiation dose reduction, the following was used: automated exposure control, adjustment of mA and/or kV according to patient size. COMPARISON: [facility], CT, CT KIDNEY URETER BLADDER (KUB), 03/22/2022, 14:54. FINDINGS: Image quality: Excellent. Lung bases: Unremarkable. Heart: No significant findings. URINARY: Right Kidney: No hydronephrosis. At least 3 nonobstructing calculus, largest measuring 0.3 cm. Duplicated collecting system. Small simple appearing cyst. Right Ureter: Obstructing calculus at the right UVJ measuring 0.3 cm, (2/75). No significant hydroureter. Left Kidney: No stones or hydronephrosis. Simple cyst at the superior pole measuring 4.5 cm. Small simple cysts. Left Ureter: No hydroureter. Bladder: There are at least 4 stones in the urinary bladder. The largest measuring 2.7 cm. ABDOMEN: Liver: Hepatic steatosis. Gallbladder: Absent. Biliary ducts: Unremarkable. Pancreas: Unremarkable. Spleen: Unremarkable. Adrenal Glands: Unremarkable. Stomach and Bowel: Stomach, small bowel loops, and colon are unremarkable. Small duodenal diverticulum. A few colonic diverticuli. Normal appendix. Peritoneum: No abnormal intraperitoneal fluid. No free air. Ventral Wall: No hernia. Abdominal Nodes: No enlarged retroperitoneal or mesenteric lymph nodes. Vessels: Aorta and inferior vena cava are normal in size. PELVIS: Pelvic Organs: Prostatomegaly. Pelvic Nodes: Unremarkable. Miscellaneous: No inguinal hernias are seen. Bones: No suspicious lesion. No compression fracture. IMPRESSION: 1. Obstructing calculus at the right UVJ measuring 0.3 cm. This could represent the stone previously seen in the proximal right ureter on CT 03/22/2022. No significant hydronephrosis or hydroureter. 2. Additional small nonobstructing right kidney stones. Graph 3. Multiple large stones in the urinary bladder. 4. Prostatomegaly. 5. Hepatic steatosis. Dictated by: Juan M Tucker M.D. on 05/17/2022 at 16:20 Approved by: Juan M Tucker M.D. on 05/17/2022 at 16:30
== END ==
PROVIDERS: PCP Internal Medicine; Referring Provider Specialist; Visit Provider Specialist
DX: N20.2 Calculus of kidney with calculus of ureter (principal); N28.1 Cyst of kidney, acquired; N21.0 Calculus in bladder; K76.0 Fatty (change of) liver, not elsewhere classified; K57.10 Diverticulosis of small intestine without perforation or abscess without bleeding; K57.90 Diverticulosis of intestine, part unspecified, without perforation or abscess without bleeding; N40.0 Benign prostatic hyperplasia without lower urinary tract symptoms
CPT/HCPCS: 74176

== ENCOUNTER → 2022-05-29 08:57 | Outpatient (CLI) | payer OTHER, SELFPAY ==
[2021-06-28 15:31] VITALS: BMI 29.4
== END ==
PROVIDERS: PCP Internal Medicine; Visit Provider Specialist
DX: N20.2 Calculus of kidney with calculus of ureter; N13.30 Unspecified hydronephrosis; N40.1 Benign prostatic hyperplasia with lower urinary tract symptoms; N13.8 Other obstructive and reflux uropathy; N21.0 Calculus in bladder; N28.9 Disorder of kidney and ureter, unspecified
CPT/HCPCS: 81002; 87086

== ENCOUNTER → 2022-06-07 09:21 | Outpatient (CLI) | payer OTHER, SELFPAY ==
[2021-06-28 15:31] VITALS: BMI 29.4
[2022-06-07 09:54] LABS: COVID19 -Nasal RAPID Negative (Negative)
== END ==
PROVIDERS: PCP Internal Medicine; Visit Provider Specialist
DX: Z20.822 Contact with and (suspected) exposure to COVID-19 (principal)
CPT/HCPCS: 87635; C9803

== ENCOUNTER 2022-06-08 09:20 | Day surgery (SDC) | payer OTHER, SELFPAY ==
[2021-06-28 15:31] VITALS: BMI 29.4
[2022-06-07 10:53] VITALS: BMI 30.6
[2022-06-08] VITALS (7 sets, daily range): BP systolic 144–171; BP diastolic 83–98; PULSE 75–88; RESP 14–20; TEMP 36.2–36.7; O2SAT 95–99; BMI 30.6
--- NOTE | 2022-06-08 | DI.RAD.S_ITS ---
PROCEDURE: XR ABDOMEN 1V INDICATIONS: Right sided kidney stone TECHNIQUE: 8 intra-operative images acquired by the Urology service. COMPARISON: [facility], CR, XR ABDOMEN 1V, 06/05/2021, 19:52. FINDINGS/IMPRESSION: Fluoroscopic support for intraoperative retrograde urogram of the right renal collecting system. The right ureter and right renal pelvis is cannulized with contrast opacifying the upper renal collecting system. Suggestion of mild right hydronephrosis. Please see separate procedure note for further details. Dictated by: Idris Arredondo M.D. on 06/08/2022 at 15:44 Approved by: Idris Arredondo M.D. on 06/08/2022 at 15:45
--- NOTE | 2022-06-08 10:10 | PM.PREOP ---
Pre-operative Note COVID-19 Criteria for continued procedure: Expected advancement of disease process, Possibility delay results in more complex future surgery or treatment, Increased loss of function, Continuing or worsening of significant or severe pain, Deterioration of the patient's condition or overall health, Delay expected to result in less-positive ultimate med/surg outcome and Non-surgical alternatives not available or appropriate per current SOC Interval Note History & Physical reviewed/Exam performed by Physician: Yes Changes to H&P: No
[2022-06-08] MEDS: LACTATED RINGERS 1,000 ML 42 ML IV (10:21)
[2022-06-08] MEDS: CEFAZOLIN 2 GM/100 ML PREMIX 100 ML IV (10:52)
--- NOTE | 2022-06-08 11:10 | SUR.OPER ---
Lithotomy on padded OR bed, head on pillow, arms secured on padded arm boards at <90 degrees abduction. Legs secured in padded yellow fins stirrups. Pt positioned per direction and supervision of Dr Neville.
[2022-06-08] MEDS: IOPAMIDOL 50 ML VIAL INJ (11:15)
--- NOTE | 2022-06-08 11:37 | PM.OP.1 ---
Operative Date/Time/Diagnoses Date of procedure: 06/08/22 Time of procedure: 11:20 Pre-op diagnosis: 1. 3 x 4 mm right ureterovesical junction calculus. 2. History of right renal colic. 3. Chronic kidney disease. Post-op diagnosis: same Procedure & Clinicians Procedure: 1. Cystoscopy/right ureteroscopy. 2. Cystoscopy/right retrograde pyelogram. Same procedure as scheduled: No (Index calculus past in interval from preop CT scan.) Indications: 1. 3 x 4 mm right ureterovesical junction calculus. 2. History of right renal colic. 3. Chronic kidney disease. Surgeon: Fede Neville Click Yes if Unassisted: Yes Anesthesia Type: General Operative Notes Findings: 1. Urethra-normal caliber without annular stricture or lesion. 2. External sphincter-coapted with normal overlying urothelium. 3. Prostate-6+ cm length with obstructing trilobar hyperplasia. 4. Bladder-large known calculi with associated edema and inflammatory change of the urothelium. Normal ureteral orifices bilaterally. 5. Right ureter no visible or contrast evidence of hydronephrosis, obstruction, or stone. Closure Type: not applicable Specimen(s): none sent Estimated Blood Loss (mL): 5 Blood products transfused: none Procedure in detail: Patient was positioned in supine was administered general anesthesia. The patient was then positioned in semi lithotomy and the lower abdomen, genitalia, and groin were then prepped and draped in sterile fashion. A 22 Israeli panendoscope was then passed lower urinary tract findings as described above. Next a 0.35 hybrid guidewire was advanced through the working element of the panendoscope and then into the right ureteral orifice and advanced proximally under direct and fluoroscopic guidance. Over this a 5 Israeli open-ended [place] catheter was advanced under fluoroscopic guidance to the proximal collecting system. The wire was temporarily removed and a retrograde pyelogram was performed with findings of no significant hydronephrosis or noted filling defect or retention of contrast. Next, the hybrid guidewire was replaced in the 5 Israeli [place] catheter was backloaded off the wire. A 12 Israeli by 6 cm balloon dilating catheter was then advanced over the hybrid guidewire across the right ureterovesical junction. The balloon was then inflated to 18 atmospheres and held in position for 5 minutes. The balloon was then deflated and backloaded off the wire. The semi rigid ureteral scope was prepared advanced from or urinary tract and then advanced into the right ureteral orifice and advanced proximally with the findings as described above. A 2nd retrograde pyelogram was then performed at this time there was no evidence of hydronephrosis, retention of contrast, or filling defect. At this point conclusion was the stone had passed. The semi-rigid ureteroscope was then removed as entirety. The panendoscope was reintroduced lower urinary tract and advanced his bladder and the bladder contents drained a final time. The panendoscope was then removed a final time. Next, the patient was repositioned supine, awakened, then was transferred to recovery in stable condition. Complications: none Post-operative Condition: stable Disposition: PACU Plan for aftercare: Discharge home.
== END 2022-06-08 12:25 | disposition home or self-care (01) ==
PROVIDERS: PCP Internal Medicine; Referring Provider Specialist; Visit Provider Specialist
PROC: 0TF68ZZ Fragmentation in Right Ureter, Via Natural or Artificial Opening Endoscopic (ICD-10-PCS; CPT 52353; principal; 2022-06-08 10:45)
DX: N20.1 Calculus of ureter (principal); N18.30 Chronic kidney disease, stage 3 unspecified
CPT/HCPCS: 52351; 74018; 76000; C1771; J0690; J2704; J3010

== ENCOUNTER → 2022-06-14 09:14 | Outpatient (CLI) | payer OTHER, SELFPAY ==
[2022-06-11 11:19] VITALS: BMI 29.4
[2022-06-14 10:27] LABS: Alanine Aminotransferase 40 IU/L (<50); Alkaline Phosphatase 87 U/L (38-126); Aspartate Aminotransferase 37 IU/L (17-59); BUN Creatinine Ratio 12.4 (6-22); Bilirubin Total 0.7 mg/dL (0.2-1.3); Blood Urea Nitrogen 20 mg/dL (9-20); Calcium 9.4 mg/dL (8.4-10.2); Carbon Dioxide 24 mmol/L (22-32); Chloride 105 mmol/L (98-107); Cholesterol 199 mg/dL (140-199); Estimated Glomerular Filt Rate 47 mL/min (>60); Glucose 99 mg/dL (80-110); HDL Cholesterol 34 mg/dL (40-60); HEMOLYSIS < 15 (0-50); Potassium 4.9 mmol/L (3.4-5.1); Sodium 139 mmol/L (137-145); Total Protein 7.7 g/dL (6.3-8.2); Triglycerides 443 mg/dL (35-150)
[2022-06-15 17:03] LABS: Albumin 4.4 g/dL (3.5-5.0); Albumin Globulin Ratio 1.3 (1.0-2.8); Globulin 3.3 g/dL (1.7-4.1)
== END ==
PROVIDERS: PCP Internal Medicine; Referring Provider Internal Medicine; Visit Provider Internal Medicine
DX: E78.5 Hyperlipidemia, unspecified (principal); J45.909 Unspecified asthma, uncomplicated; N25.81 Secondary hyperparathyroidism of renal origin; N18.30 Chronic kidney disease, stage 3 unspecified
CPT/HCPCS: 36415; 80053; 80061

== ENCOUNTER → 2022-08-01 09:09 | Outpatient (CLI) | payer OTHER, SELFPAY ==
[2022-06-11 11:19] VITALS: BMI 29.4
[2022-08-01 09:37] LABS: Add Manual Diff / Slide Review NO; Basophils Absolute Auto 0 /uL (0-100); Basophils Percent Auto 0.7 % (0-2); Eosinophils Absolute Auto 300 /uL (0-450); Eosinophils Percent Auto 5.5 % (2-4); Hematocrit 42.1 % (41-53); Hemoglobin 14.7 g/dL (13.5-17.5); Lymphocytes Absolute Auto 1600 /uL (1100-4500); Lymphocytes Percent Auto 28.6 % (25-40); Mean Corpuscular Hemoglobin 33.1 PG (26-34); Mean Corpuscular Volume 94.8 fL (80-100); Monocytes Absolute Auto 400 /uL (0-900); Monocytes Percent Auto 7.7 % (3-14); Neutrophils Absolute Auto 3100 /uL (1500-7000); Neutrophils Percent Auto 57.5 % (50-75); Platelet Count 186 X10^3/uL (150-400); Red Blood Cell Count 4.44 X10^6/uL (4.5-5.9); Red Cell Distribution Width 14.1 % (11.6-14.8); White Blood Cell Count 5.5 X10^3/uL (4.5-11.0)
[2022-08-01 09:49] LABS: Alanine Aminotransferase 45 IU/L (<50); Albumin 4.7 g/dL (3.5-5.0); Albumin Globulin Ratio 1.5 (1.0-2.8); Alkaline Phosphatase 75 U/L (38-126); Aspartate Aminotransferase 36 IU/L (17-59); BUN Creatinine Ratio 10.6 (6-22); Bilirubin Total 0.8 mg/dL (0.2-1.3); Blood Urea Nitrogen 20 mg/dL (9-20); Calcium 8.9 mg/dL (8.4-10.2); Carbon Dioxide 23 mmol/L (22-32); Chloride 109 mmol/L (98-107); Estimated Glomerular Filt Rate 39 mL/min (>60); Globulin 3.2 g/dL (1.7-4.1); Glucose 112 mg/dL (80-110); HEMOLYSIS < 15 (0-50); Potassium 4.6 mmol/L (3.4-5.1); Sodium 141 mmol/L (137-145); Total Protein 7.9 g/dL (6.3-8.2)
[2022-08-01 10:02] LABS: HEMOLYSIS < 15 (0-50); Iron 86 ug/dL (49-181)
[2022-08-01 10:12] LABS: Percent Iron Saturation 27 % (20-50); Total Iron Binding Capacity 317 ug/dL (261-462); Transferrin 247 mg/dL (206-381)
[2022-08-01 10:20] LABS: Carcinoembryonic Antigen 2.3 ng/mL (0.1-3.0)
[2022-08-01 10:24] LABS: Ferritin 83 ng/mL (18-464)
[2022-08-01 10:38] LABS: Prostate Specific Antigen 14.6 ng/mL (0.10-4.00)
== END ==
PROVIDERS: Internal Medicine Hematology & Oncology; PCP Internal Medicine; Referring Provider Specialist; Visit Provider Specialist
DX: R97.20 Elevated prostate specific antigen [PSA] (principal); D64.9 Anemia, unspecified
CPT/HCPCS: 36415; 80053; 82378; 82728; 83540; 83550; 84153; 85025

== ENCOUNTER 2022-11-03 12:32 | Observation (INO) | payer OTHER, SELFPAY ==
[2022-06-11 11:19] VITALS: BMI 29.4
[2022-11-03] VITALS (40 sets, daily range): BP systolic 115–169; BP diastolic 59–84; PULSE 64–81; RESP 10–21; TEMP 36.2–37.1; O2SAT 95–100; BMI 29.7
--- NOTE | 2022-11-03 12:44 | DI.RAD.S_ITS ---
PROCEDURE: XR CHEST 1V INDICATIONS: chest pain TECHNIQUE: One view of the chest was acquired. COMPARISON: [facility], CR, XR CHEST 2V, 11/19/2019, 11:07. FINDINGS: Surgical changes and devices: None. Lungs and pleura: Lungs are clear. No pleural effusions or pneumothorax. Mediastinum: Mediastinal contours appear normal. Heart size is normal. Bones and chest wall: No suspicious bony lesions. Overlying soft tissues appear unremarkable. IMPRESSION: No acute cardiopulmonary findings Approved by: Jersey Maria M.D. on 11/03/2022 at 12:52
--- NOTE | 2022-11-03 12:46 | ED_ITS ---
HPI - Chest Pain General Chief Complaint: Chest Pain Stated Complaint: back and headache, chest pain Time Seen by Provider: 11/03/22 12:43 Source: patient Mode of arrival: Ambulatory Limitations: no limitations History of Present Illness HPI narrative: 67-year-old male nonsmoker with history of asthma, hyperlipidemia, chronic kidney disease and prior colon cancer (adenocarcinoma) status post colon resection presents with family in the chief complaint of sudden onset left lateral chest pain 1-2 hours ago. Prior to the onset of this discomfort he was in his normal state of health. He denies any dizziness, weakness or lightheadedness. Denies any recent exercise intolerance or unexplained fatigue. He states the pain is sharp and stabbing and rates it an 8/10. He admits to radiation to his back and down his left arm. He does feel associated shortness of breath. He denies any history of the same. He denies any recent change in medications or diet. He denies history of trauma or other injury, travel, history of blood clot or lower extremity pain, swelling or redness but does have remote history of cancer as noted above. Though listed as an allergy he does not have a true allergy to aspirin but was told not to take it because of kidney disease. Related Data Home Medications Medication Instructions Recorded Confirmed latanoprost 0.005 % eye drops 1 drp EYE-LEFT BEDTIME ##0 07/30/16 08/02/22 dorzolamide 2 % eye drops 1 drp EYE-LEFT BID 03/05/19 08/02/22 Previous Rx's Medication Instructions Recorded fluticasone propionate 50 1 spray intranasal BID ##16 07/15/18 mcg/actuation nasal spray,suspension inhalational spacing device #1 ea 06/06/20 (Aerochamber MV spacer) alfuzosin 10 mg tablet,extended 10 mg PO DAILY #90 tabs 11/06/21 release 24 hr (Uroxatral) potassium citrate 10 mEq (1,080 20 meq PO TID #540 tabs 11/06/21 mg) tablet,extended release albuterol sulfate 90 mcg/actuation 2 puff inhalation Q4HP PRN 01/08/22 aerosol inhaler (Ventolin HFA) Shortness Of Breath #54 grams albuterol sulfate 0.63 mg/3 mL 0.63 mg (3 mL) continuous 12/12/22 solution for nebulization nebulization Q4HP PRN Shortness Of Breath #90 mL trazodone 50 mg tablet 100 mg PO HS #180 tabs 07/09/22 omeprazole 20 mg tablet,delayed 20 mg PO BID #180 tabs 09/03/22 release fluticasone propionate 230 2 inh inhalation DAILY PRN 10/23/22 mcg-salmeterol 21 mcg/actuation shortness of breath or wheezing HFA inhaler (Advair HFA) #12 grams Allergies Allergy/AdvReac Type Severity Reaction Status Date / Time aspirin [ASPIRIN] Allergy Unknown CAN'T TAKE Verified 08/02/22 13:52 SECONDARY TO ASTHMA Review of Systems Review of Systems Narrative: GENERAL: Denies chills, fatigue, malaise, fever, sweats. HEENT: Denies sinus pain, ear pain, sore throat, difficulty swallowing, dizziness. RESPIRATORY: See HPI CARDIOVASCULAR: See HPI GASTROINTESTINAL: Denies nausea, vomiting, abdominal pain, diarrhea, constipation, melena. : Denies dysuria, frequency, incontinence, hematuria, urinary retention. MUSCULOSKELETAL: denies weakness, joint pain, or bony pain SKIN: Denies rash, skin lesions, or other NEUROLOGIC: Denies weakness, headache, numbness, change in speech, confusion, seizures, incoordination. PSYCHIATRIC: No concerning psychosocial issues. 12 point review of systems is negative except for those stated above Patient History Medical History Abnormal LFTs Adenocarcinoma, colon (~02/2019) Anemia Asthma (02/23/11) Bladder calculi BPH w urinary obs/LUTS Chronic renal failure, stage 3 (moderate) (~2012) Elevated prostate specific antigen (PSA) (02/23/11) Gastroesophageal reflux disease without esophagitis (02/23/11) Glaucoma Hyperlipidemia (09/16/12) Left ureteral calculus Neuropathy Right ureteral calculus Seasonal allergies Secondary hyperparathyroidism Wears glasses Surgical History H/O gastric bypass History of back surgery History of colectomy (03/11/19) Hx of cystoscopy (06/05/21) Hx of cystoscopy (07/31/21) Hx of eye surgery Hx of sinus surgery S/P lumbar discectomy Status post laparoscopic cholecystectomy Family History Mother Carcinoid tumor Family/Other Cancer Social History marital status: number of children: 2 household members: spouse and children occupational status: employed Smoking Status: Never smoker alcohol intake: never substance use type: does not use Smoking Status: Never smoker Substance Use Type: does not use Exam Narrative Exam Narrative: GENERAL: [67] year old patient appears stated age. Well-developed patient, in moderate distress. HEAD: Atraumatic. Normocephalic. EYES: Pupils equal round and reactive. Extraocular motions intact. No scleral icterus. No injection or drainage. ENT: Nose without bleeding, purulent drainage. Throat without erythema, tonsillar hypertrophy or exudate. Airway patent. NECK: Trachea midline. Non tender CARDIOVASCULAR: Regular rate and rhythm without murmurs, gallops, or rubs. No reproducible pain on palpation RESPIRATORY: Clear to auscultation. Breath sounds equal bilaterally. No wheezes, rales, or rhonchi. GASTROINTESTINAL: Abdomen soft, non-tender, nondistended. EXTREMITIES: No edema or joint tenderness. Neurovascularly intact, cap refill, radial pulses palpable BACK: Nontender without deformity or crepitance. No flank tenderness. NEURO: AOx3. SKIN: No rash or erythema of visible areas Initial Vital Signs Initial Vital Signs: Vital Signs Temperature 97.2 F L 11/03/22 12:38 Pulse Rate 75 11/03/22 12:38 Respiratory Rate 18 11/03/22 12:38 Blood Pressure 159/82 H 11/03/22 12:38 Pulse Oximetry 100 11/03/22 12:38 Oxygen Delivery Method Room Air 11/03/22 12:38 Scores HEART Score Heart Score history: Moderately Suspicious Heart Score EKG: Normal Heart Score Age: > or = 65 years old Heart Score risk factors: 1-2 risk factors Heart Score troponin: < or = to normal limit Heart Score Total: 4 Course Orders Ordered: ED Orders 11/03/22 12:44 XR chest 1V Stat 11/03/22 12:49 EKG-12 Lead Stat 11/03/22 12:53 Complete Blood Count AUTO DIFF Stat Comprehensive Metabolic Panel Stat D Dimer Stat Lipase Stat Magnesium Stat PTT Partial Thromboplastin Nate Stat Prothrombin Time INR Stat Troponin & CK Cardiac Panel Stat 11/03/22 12:58 CT angio chest abdomen pelvis Stat Discontinued Medications Aspirin (Aspirin 81 Mg Chew Tab) 324 mg PO NOW ONE Stop: 11/03/22 12:48 Last Admin: 11/03/22 12:51 Dose: 324 mg Documented By: RB Nitroglycerin (Nitroglycerin 0.4 Mg Sl Tab) 0.4 mg SL [id number] PRN PRN Reason: Chest Pain Last Admin: 11/03/22 13:57 Dose: 0.4 mg Documented By: Admin: 11/03/22 13:43 Dose: 0.4 mg Documented By: Admin: 11/03/22 13:02 Dose: 0.4 mg Documented By: SURINDER Nitroglycerin (Nitroglycerin Oint 1 Inch/Gm Oint...G.) 1 inch TOP NOW ONE Stop: 11/03/22 14:14 Last Admin: 11/03/22 14:18 Dose: 1 inch Documented By: SURINDER Vital Signs Vital signs: Vital Signs - 8 hr 11/03/22 12:38 11/03/22 12:46 11/03/22 12:52 Temperature 97.2 F L Pulse Rate 75 75 Respiratory Rate 18 21 Blood Pressure 159/82 H 169/84 H Pulse Oximetry 100 Oxygen Delivery Method Room Air 11/03/22 12:52 11/03/22 13:02 11/03/22 13:43 Temperature Pulse Rate 76 66 64 Respiratory Rate 17 Blood Pressure 160/81 H 130/69 Pulse Oximetry 97 Oxygen Delivery Method 11/03/22 13:00 11/03/22 13:00 11/03/22 13:05 Temperature Pulse Rate 68 Respiratory Rate 17 Blood Pressure 160/81 H 143/76 H Pulse Oximetry 97 Oxygen Delivery Method 11/03/22 13:05 11/03/22 13:11 11/03/22 13:11 Temperature Pulse Rate 66 78 Respiratory Rate 21 16 Blood Pressure 145/67 H Pulse Oximetry 98 97 Oxygen Delivery Method 11/03/22 13:15 11/03/22 13:15 11/03/22 13:20 Temperature Pulse Rate 76 Respiratory Rate 16 Blood Pressure 143/69 H 143/70 H Pulse Oximetry 95 Oxygen Delivery Method 11/03/22 13:20 11/03/22 13:25 11/03/22 13:25 Temperature Pulse Rate 73 69 Respiratory Rate 19 15 Blood Pressure 130/69 Pulse Oximetry 97 97 Oxygen Delivery Method 11/03/22 13:57 11/03/22 14:18 11/03/22 13:37 Temperature Pulse Rate 71 78 68 Respiratory Rate Blood Pressure 132/69 127/67 Pulse Oximetry 99 Oxygen Delivery Method 11/03/22 13:45 11/03/22 13:45 11/03/22 13:50 Temperature Pulse Rate 64 68 Respiratory Rate 11 L 14 Blood Pressure 132/69 Pulse Oximetry 100 98 Oxygen Delivery Method 11/03/22 13:55 11/03/22 14:00 11/03/22 14:00 Temperature Pulse Rate 76 69 Respiratory Rate 15 13 Blood Pressure 118/59 L Pulse Oximetry 97 97 Oxygen Delivery Method 11/03/22 14:05 11/03/22 14:10 11/03/22 14:15 Temperature Pulse Rate 76 72 Respiratory Rate 18 18 Blood Pressure 126/67 Pulse Oximetry 98 97 Oxygen Delivery Method 11/03/22 14:15 11/03/22 14:20 11/03/22 14:25 Temperature Pulse Rate 67 66 65 Respiratory Rate 18 13 12 Blood Pressure Pulse Oximetry 98 99 98 Oxygen Delivery Method 11/03/22 14:30 11/03/22 14:30 11/03/22 14:35 Temperature Pulse Rate 66 66 Respiratory Rate 11 L 12 Blood Pressure 123/67 Pulse Oximetry 100 100 Oxygen Delivery Method 11/03/22 14:40 11/03/22 14:45 11/03/22 14:45 Temperature Pulse Rate 66 66 Respiratory Rate 15 20 Blood Pressure 124/70 Pulse Oximetry 100 100 Oxygen Delivery Method 11/03/22 14:50 11/03/22 14:55 11/03/22 15:00 Temperature Pulse Rate 66 67 Respiratory Rate 13 16 Blood Pressure 119/70 Pulse Oximetry 100 100 Oxygen Delivery Method 11/03/22 15:00 11/03/22 15:05 11/03/22 15:10 Temperature Pulse Rate 66 65 67 Respiratory Rate 17 12 16 Blood Pressure Pulse Oximetry 100 100 100 Oxygen Delivery Method 11/03/22 15:15 11/03/22 15:15 Temperature Pulse Rate 65 Respiratory Rate 10 L Blood Pressure 121/72 Pulse Oximetry 100 Oxygen Delivery Method MDM - Chest Pain Lab Data 11/03/22 12:53 11/03/22 12:53 Labs: Lab Results 11/03/22 11/03/2211/03/23 Range/Units 12:53 12:53 12:53 WBC 8.3 (4.5-11.0) X10^3/uL RBC 4.58 (4.5-5.9) X10^6/uL Hgb 15.1 (13.5-17.5) g/dL Hct 43.2 (41-53) % MCV 94.3 (80-100) fL MCH 33.1 (26-34) PG MCHC 35.1 (30-36) % RDW 13.3 (11.6-14.8) % Plt Count 185 (150-400) X10^3/uL Neut % (Auto) 58.4 (50-75) % Lymph % (Auto) 28.0 (25-40) % [place] % (Auto) 8.1 (3-14) % Eos % (Auto) 4.9 H (2-4) % Baso % (Auto) 0.6 (0-2) % Neut # (Auto) 4800 (2844-6848) /uL Lymph # (Auto) 2300 (9810-0725) /uL [place] # (Auto) 700 (0-900) /uL Eos # (Auto) 400 (0-450) /uL Baso # (Auto) 0 (0-100) /uL PT 12.4 (10.1-12.7) SECONDS INR 1.1 (0.9-1.3) APTT 25 L (26-36) SECONDS D-Dimer (<500) ng/ml Sodium 137 (137-145) mmol/L Potassium 4.9 (3.4-5.1) mmol/L Chloride 103 (98-107) mmol/L Carbon Dioxide 23 (22-32) mmol/L BUN 23 H (9-20) mg/dL Creatinine 1.64 H (0.66-1.25) mg/dL Estimated GFR 46 L (>60) mL/min BUN/Creatinine Ratio 14.0 (6-22) Glucose 101 (80-110) mg/dL Calcium 9.4 (8.4-10.2) mg/dL Magnesium 2.0 (1.6-2.3) mg/dL Total Bilirubin 0.7 (0.2-1.3) mg/dL AST 39 (17-59) IU/L ALT 53 H (<50) IU/L Alkaline Phosphatase 90 (38-126) U/L Total Creatine Kinase 207 H (55-170) U/L CK-MB (CK-2) TNP CK-MB (CK-2) Rel Index TNP Troponin I < 0.012 (0.01-0.034) ng/mL Total Protein 7.9 (6.3-8.2) g/dL Albumin 4.5 (3.5-5.0) g/dL Globulin 3.4 (1.7-4.1) g/dL Albumin/Globulin Ratio 1.3 (1.0-2.8) Lipase 305 H (23-300) U/L 11/03/22 Range/Units 12:53 WBC (4.5-11.0) X10^3/uL RBC (4.5-5.9) X10^6/uL Hgb (13.5-17.5) g/dL Hct (41-53) % MCV (80-100) fL MCH (26-34) PG MCHC (30-36) % RDW (11.6-14.8) % Plt Count (150-400) X10^3/uL Neut % (Auto) (50-75) % Lymph % (Auto) (25-40) % [place] % (Auto) (3-14) % Eos % (Auto) (2-4) % Baso % (Auto) (0-2) % Neut # (Auto) (0342-9641) /uL Lymph # (Auto) (7989-9081) /uL [place] # (Auto) (0-900) /uL Eos # (Auto) (0-450) /uL Baso # (Auto) (0-100) /uL PT (10.1-12.7) SECONDS INR (0.9-1.3) APTT (26-36) SECONDS D-Dimer 371 (<500) ng/ml Sodium (137-145) mmol/L Potassium (3.4-5.1) mmol/L Chloride (98-107) mmol/L Carbon Dioxide (22-32) mmol/L BUN (9-20) mg/dL Creatinine (0.66-1.25) mg/dL Estimated GFR (>60) mL/min BUN/Creatinine Ratio (6-22) Glucose (80-110) mg/dL Calcium (8.4-10.2) mg/dL Magnesium (1.6-2.3) mg/dL Total Bilirubin (0.2-1.3) mg/dL AST (17-59) IU/L ALT (<50) IU/L Alkaline Phosphatase (38-126) U/L Total Creatine Kinase (55-170) U/L CK-MB (CK-2) CK-MB (CK-2) Rel Index Troponin I (0.01-0.034) ng/mL Total Protein (6.3-8.2) g/dL Albumin (3.5-5.0) g/dL Globulin (1.7-4.1) g/dL Albumin/Globulin Ratio (1.0-2.8) Lipase (23-300) U/L Discharge Plan Departure Patient Disposition: Admitted as Observation Clinical Impression: Chest pain Admit Date/Time: 11/03/22 15:18 Admit Provider: Jn Chavarria
[2022-11-03] MEDS: ASPIRIN 81 MG CHEW TAB 324 MG PO (12:51)
--- NOTE | 2022-11-03 12:58 | DI.CT.S_ITS ---
PROCEDURE: CT ANGIO CHEST ABDOMEN PELVIS INDICATIONS: sudden pleuritic chest pain, radiates to back, L arm TECHNIQUE: Precontrast 5 mm thick sections acquired from the lung apices to the iliac crests. After the administration of intravenous contrast, 2.5 mm thick sections again acquired from the lung apices to the iliac crests. Maximum intensity projection (MIP) oblique sagittal and coronal reformats were then acquired. For radiation dose reduction, the following was used: automated exposure control. COMPARISON: None. FINDINGS: Chest: Cardiovascular: Heart size is normal. No evidence of pulmonary embolism, aortic aneurysm or dissection. Lungs and pleural spaces: The lung moise are clear without nodule, infiltrate or interstitial prominence. Pleural spaces show no effusion or pneumothorax. Lymph nodes: No mediastinal, hilar or axillary adenopathy. Mediastinum: Unremarkable. No hiatal hernia. Thyroid within normal limits. Chest Wall and Bones: Unremarkable. No acute fracture. Abdomen and Pelvis: Liver: Normal in size and attenuation. No contour deformity present. Biliary system: No calcified cholelithiasis or pericholecystic inflammation. No intra or extrahepatic bile duct dilatation. Pancreas: Unremarkable without mass or inflammation evident. Spleen: Normal in size and density. Adrenals: Normal morphology and density. Reproductive system: As below Urinary system: Bilateral renal atrophy without hydronephrosis. Left renal cyst measures 4.5 cm Bladder stones. Largest measures 2.3 cm. Prostate hypertrophy elevates the bladder floor.. Gastrointestinal system: The bowel is unremarkable with no evidence of bowel obstruction or inflammation. The stomach appears unremarkable. Appendix: No findings to suggest acute appendicitis. Lymph nodes: No mesenteric or retroperitoneal adenopathy. Peritoneal spaces: No free air. No free fluid. Vasculature: The IVC, aorta and iliac vasculature are unremarkable. Abdominal wall: Abdominal wall intact without evidence of ventral or inguinal hernias. Musculoskeletal: Normal bone mineralization. No acute fractures. IMPRESSION: 1. Unremarkable aorta without evidence of aneurysm or dissection. 2. Incidental bladder calculi and prostate hypertrophy. No hydronephrosis. 3. Additional chronic changes as above Approved by: Jersey Maria M.D. on 11/03/2022 at 13:22
[2022-11-03] MEDS: NITROGLYCERIN 0.4 MG SL TAB SL ×3 (13:02→13:57)
[2022-11-03 13:04] LABS: Add Manual Diff / Slide Review NO; Basophils Absolute Auto 0 /uL (0-100); Basophils Percent Auto 0.6 % (0-2); Eosinophils Absolute Auto 400 /uL (0-450); Eosinophils Percent Auto 4.9 % (2-4); Hematocrit 43.2 % (41-53); Hemoglobin 15.1 g/dL (13.5-17.5); Lymphocytes Absolute Auto 2300 /uL (1100-4500); Mean Corpuscular HGB Conc 35.1 % (30-36); Mean Corpuscular Hemoglobin 33.1 PG (26-34); Mean Corpuscular Volume 94.3 fL (80-100); Monocytes Absolute Auto 700 /uL (0-900); Monocytes Percent Auto 8.1 % (3-14); Neutrophils Absolute Auto 4800 /uL (1500-7000); Neutrophils Percent Auto 58.4 % (50-75); Platelet Count 185 X10^3/uL (150-400); Red Blood Cell Count 4.58 X10^6/uL (4.5-5.9); Red Cell Distribution Width 13.3 % (11.6-14.8); White Blood Cell Count 8.3 X10^3/uL (4.5-11.0)
[2022-11-03 13:13] LABS: INR 1.1 (0.9-1.3); Prothrombin Time 12.4 SECONDS (10.1-12.7)
[2022-11-03 13:16] LABS: Alanine Aminotransferase 53 IU/L (<50); Albumin 4.5 g/dL (3.5-5.0); Albumin Globulin Ratio 1.3 (1.0-2.8); Alkaline Phosphatase 90 U/L (38-126); Aspartate Aminotransferase 39 IU/L (17-59); Bilirubin Total 0.7 mg/dL (0.2-1.3); Blood Urea Nitrogen 23 mg/dL (9-20); Calcium 9.4 mg/dL (8.4-10.2); Carbon Dioxide 23 mmol/L (22-32); Chloride 103 mmol/L (98-107); Creatine Kinase 207 U/L (55-170); Estimated Glomerular Filt Rate 46 mL/min (>60); Globulin 3.4 g/dL (1.7-4.1); Glucose 101 mg/dL (80-110); HEMOLYSIS < 15 (0-50); Lipase 305 U/L (23-300); PTT Partial Thromboplastin Tim 25 SECONDS (26-36); Potassium 4.9 mmol/L (3.4-5.1); Sodium 137 mmol/L (137-145); Total Protein 7.9 g/dL (6.3-8.2)
[2022-11-03 13:23] LABS: D Dimer 371 ng/ml (<500)
[2022-11-03 13:27] LABS: Troponin I < 0.012 ng/mL (0.01-0.034)
[2022-11-03] MEDS: NITROGLYCERIN OINT 1 INCH/GM OINT...G. TOP (14:18)
--- NOTE | 2022-11-03 20:16 | DI.ECHO.S_ITS ---
[place] [facility]---------+ [facility] +---------+ : : [address] : : : : [id number] : : : : Phone: [phone] Echocardiogram Report + + :Name: ANASTASIA BENJAMIN Study Date: 11/04/2022 Height: 73 in : :[facility] ReadingLocation: Weight: 225 lb : : Gender: Male BSA: 2.3 m2 : :: 1955 Age: 67 yrs BP: 104/58 mmHg: :Reason For Study: CHEST PAIN R/O ACS : :Ordering Physician: BERRY, : :WALLY Cai Performed By: Tracy Quinteros : :Referring: WALLY SMART : + + Interpretation Summary The left ventricle is normal in size and wall thickness. The ejection fraction is estimated to be 60-65%. There has been no significant change in LV EF since the previous exam. The right ventricle is normal in size and function. There is mild tricuspid regurgitation. Compared to the prior echo exam, there has been no change in TR severity. The right ventricular systolic pressure is estimated to be at least 27 mmHg based on an estimated right atrial pressure of 3 mm Hg. The aortic arch is mild-moderately enlarged.Ao Arch Diam (Prox Trans): 4.0 cm. Previously, Ao Arch Diam (Prox Trans): 3.2 cm Procedure: A two-dimensional transthoracic echocardiogram with color flow and Doppler was performed. The study quality was technically adequate. Comparison is made with the echocardiogram of 05/02/2018. The patient was in sinus rhythm with heart rates between 62-67 bpm during the exam. Left Ventricle: The left ventricle is normal in size and wall thickness. There is no thrombus. The ejection fraction is estimated to be 60-65%. There has been no significant change since the previous exam. There are no focal wall motion abnormalities. MV E/A: 1.0 Med Peak E' Florian: 7.2 cm/sec E/E' med: 10.0. Right Ventricle: The right ventricle is normal in size and function. Atria: The left atrial size is normal. There has been no significant change since the previous study. Right atrial size is normal. There is no Doppler evidence for an interatrial shunt. Mitral Valve: The mitral valve is normal in structure and function. There is trace mitral regurgitation. There has been no significant change since the previous study. Aortic Valve: The aortic valve is trileaflet. The aortic valve opens well. There is no aortic valve stenosis. There is trace aortic regurgitation. Compared to the prior echo study, there has been no change in the severity of aortic regurgitation. Tricuspid Valve: The tricuspid valve is normal. There is mild tricuspid regurgitation. The right ventricular systolic pressure is estimated to be at least 27 mmHg based on an estimated right atrial pressure of 3 mm Hg. Compared to the prior echo exam, there has been no change in TR severity. Pulmonic Valve: The pulmonic valve leaflets are thin and pliable; valve motion is normal. There is mild pulmonic regurgitation. Great Vessels: The aortic root is normal size. The dimensions of the ascending aorta are normal. The aortic arch is mild-moderately enlarged. The IVC is of normal diameter and collapses greater than 50% with a sniff. This suggests a low right atrial pressure of 3 mm Hg. Pericardium/ Pleura There is no pericardial effusion. There is no pleural effusion. MMode/2D Measurements & Calculations LVIDd: 5.6 cm LVOT diam: 2.3 cm LVIDs: 4.0 cm Ao root diam: 3.4 cm FS: 28.4 % asc Aorta Diam: 3.3 cm EPSS: 0.88 cm Ao Arch Diam (Prox Trans): 4.0 cm IVSd: 0.99 cm LVPWd: 0.87 cm LV nunez. diameter/BSA (cm/m^2): 2.5 LV sys. diameter/BSA (cm/m^2): 1.8 LA A2 area: 17.6 cm2 RA long axis: 5.4 cm LA A4 area: 18.9 cm2 RA area: 17.3 cm2 LA length (vol): 5.8 cm RA vol: 47.2 ml LA vol: 48.6 ml RA : 20.9 ml/m2 LA vol index: 21.5 ml/m2 IVC diam: 1.0 cm RVD1 (basal): 3.1 cm TAPSE: 1.6 cm Doppler Measurements & Calculations Ao V2 max: 134.8 cm/sec LVOT Max Florian: 103.5 cm/sec Ao V2 mean: 104.4 cm/sec LV V1 max P.3 mmHg Ao max P.3 mmHg LV V1 VTI: 22.6 cm Ao mean P.6 mmHg BERTO(I,D): 3.0 cm2 Ao V2 VTI: 29.8 cm BERTO(V,D): 3.1 cm2 sev ratio: 0.76 BERTO indexed to BSA (cm^2/m^2): 1.3 MV E max florian: 72.2 cm/sec TR max florian: 243.0 cm/sec MV A max florian: 70.1 cm/sec TR max P.6 mmHg MV E/A: 1.0 PA V2 max: 101.8 cm/sec Med Peak E' Florian: 7.2 cm/sec PA V2 mean: 69.4 cm/sec E/E' med: 10.0 PA mean P.2 mmHg Lat Peak E' Florian: 6.4 cm/sec PA pr(Accel): 32.8 mmHg E/E' lat: 11.2 E/e' average: 10.6 MV dec time: 0.25 sec SV(LVOT): 90.3 ml Reading Physician:12:17 PM
--- NOTE | 2022-11-03 20:18 | P.HP_ITS ---
History of Present Illness History of Present Illness Date Patient Seen: 11/03/22 Time Patient Seen: 19:30 Chief complaint: back and headache, chest pain Narrative: CC: My chest hurts Pt presented to ED after sudden onset acute L sided chest pain while getting d ressed this morning. Recently retired with hx of asthma hyperlipidemia mild CKD and s/p resection colon cancer. He reports the ntiro paste helped some.No prior cardiac history. He has been doing some gardening but no undue activity per him. Appetite is fine he feels stable on his feet no nausea. reports chest pain is improved but still present. COUNTS INCLUDE 234 BEDS AT THE [facility] Medical History Abnormal LFTs Adenocarcinoma, colon (~02/2019) Anemia Asthma (02/23/11) Bladder calculi BPH w urinary obs/LUTS Chronic renal failure, stage 3 (moderate) (~2012) Elevated prostate specific antigen (PSA) (02/23/11) Gastroesophageal reflux disease without esophagitis (02/23/11) Glaucoma Hyperlipidemia (09/16/12) Left ureteral calculus Neuropathy Right ureteral calculus Seasonal allergies Secondary hyperparathyroidism Wears glasses Surgical History H/O gastric bypass History of back surgery History of colectomy (03/11/19) Hx of cystoscopy (06/05/21) Hx of cystoscopy (07/31/21) Hx of eye surgery Hx of sinus surgery S/P lumbar discectomy Status post laparoscopic cholecystectomy Family History Mother Carcinoid tumor Family/Other Cancer Social History marital status: number of children: 2 household members: spouse occupational status: employed Smoking Status: Never smoker alcohol intake: never substance use type: does not use Meds Home Medications and Allergies Home Medications Medication Instructions Recorded Confirmed Type latanoprost 0.005 % eye drops 1 drp EYE-LEFT BEDTIME ##0 07/30/16 11/03/22 History fluticasone propionate 50 1 spray intranasal BID ##16 07/15/18 11/03/22 Rx mcg/actuation nasal spray,suspension dorzolamide 2 % eye drops 1 drp EYE-LEFT BID 03/05/19 11/03/22 History inhalational spacing device #1 ea 06/06/20 11/03/22 Rx (Aerochamber MV spacer) alfuzosin 10 mg tablet,extended 10 mg PO DAILY #90 tabs 11/06/21 11/03/22 Rx release 24 hr (Uroxatral) potassium citrate 10 mEq (1,080 20 meq PO TID #540 tabs 11/06/21 11/03/22 Rx mg) tablet,extended release albuterol sulfate 90 mcg/actuation 2 puff inhalation Q4HP PRN 01/08/22 11/03/22 Rx aerosol inhaler (Ventolin HFA) Shortness Of Breath #54 grams albuterol sulfate 0.63 mg/3 mL 0.63 mg (3 mL) continuous 05/07/22 11/03/22 Rx solution for nebulization nebulization Q4HP PRN Shortness Of Breath #90 mL trazodone 50 mg tablet 100 mg PO HS #180 tabs 07/09/22 11/03/22 Rx omeprazole 20 mg tablet,delayed 20 mg PO BID #180 tabs 09/03/22 11/03/22 Rx release fluticasone propionate 230 2 inh inhalation DAILY PRN 10/23/22 11/03/22 Rx mcg-salmeterol 21 mcg/actuation shortness of breath or wheezing HFA inhaler (Advair HFA) #12 grams brimonidine 11/03/22 History ipratropium bromide 11/03/22 History Allergies Allergy/AdvReac Type Severity Reaction Status Date / Time aspirin [ASPIRIN] Allergy Unknown CAN'T TAKE Verified 08/02/22 13:52 SECONDARY TO ASTHMA Review of Systems Review of Systems Narrative: all systems reviewed and negative except as otherwise documented in HPI Exam Vital Signs (past 8 hours): - 11/03/22 12:38 11/03/22 12:46 11/03/22 12:52 Temperature 97.2 F L Pulse Rate 75 75 Respiratory Rate 18 21 Blood Pressure 159/82 H 169/84 H Pulse Oximetry 100 Oxygen Delivery Method Room Air 11/03/22 12:52 11/03/22 13:02 11/03/22 13:43 Temperature Pulse Rate 76 66 64 Respiratory Rate 17 Blood Pressure 160/81 H 130/69 Pulse Oximetry 97 Oxygen Delivery Method 11/03/22 13:00 11/03/22 13:00 11/03/22 13:05 Temperature Pulse Rate 68 Respiratory Rate 17 Blood Pressure 160/81 H 143/76 H Pulse Oximetry 97 Oxygen Delivery Method 11/03/22 13:05 11/03/22 13:11 11/03/22 13:11 Temperature Pulse Rate 66 78 Respiratory Rate 21 16 Blood Pressure 145/67 H Pulse Oximetry 98 97 Oxygen Delivery Method 11/03/22 13:15 11/03/22 13:15 11/03/22 13:20 Temperature Pulse Rate 76 Respiratory Rate 16 Blood Pressure 143/69 H 143/70 H Pulse Oximetry 95 Oxygen Delivery Method 11/03/22 13:20 11/03/22 13:25 11/03/22 13:25 Temperature Pulse Rate 73 69 Respiratory Rate 19 15 Blood Pressure 130/69 Pulse Oximetry 97 97 Oxygen Delivery Method 11/03/22 13:57 11/03/22 14:18 11/03/22 13:37 Temperature Pulse Rate 71 78 68 Respiratory Rate Blood Pressure 132/69 127/67 Pulse Oximetry 99 Oxygen Delivery Method 11/03/22 13:45 11/03/22 13:45 11/03/22 13:50 Temperature Pulse Rate 64 68 Respiratory Rate 11 L 14 Blood Pressure 132/69 Pulse Oximetry 100 98 Oxygen Delivery Method 11/03/22 13:55 11/03/22 14:00 11/03/22 14:00 Temperature Pulse Rate 76 69 Respiratory Rate 15 13 Blood Pressure 118/59 L Pulse Oximetry 97 97 Oxygen Delivery Method 11/03/22 14:05 11/03/22 14:10 11/03/22 14:15 Temperature Pulse Rate 76 72 Respiratory Rate 18 18 Blood Pressure 126/67 Pulse Oximetry 98 97 Oxygen Delivery Method 11/03/22 14:15 11/03/22 14:20 11/03/22 14:25 Temperature Pulse Rate 67 66 65 Respiratory Rate 18 13 12 Blood Pressure Pulse Oximetry 98 99 98 Oxygen Delivery Method 11/03/22 14:30 11/03/22 14:30 11/03/22 14:35 Temperature Pulse Rate 66 66 Respiratory Rate 11 L 12 Blood Pressure 123/67 Pulse Oximetry 100 100 Oxygen Delivery Method 11/03/22 14:40 11/03/22 14:45 11/03/22 14:45 Temperature Pulse Rate 66 66 Respiratory Rate 15 20 Blood Pressure 124/70 Pulse Oximetry 100 100 Oxygen Delivery Method 11/03/22 14:50 11/03/22 14:55 11/03/22 15:00 Temperature Pulse Rate 66 67 Respiratory Rate 13 16 Blood Pressure 119/70 Pulse Oximetry 100 100 Oxygen Delivery Method 11/03/22 15:00 11/03/22 15:05 11/03/22 15:10 Temperature Pulse Rate 66 65 67 Respiratory Rate 17 12 16 Blood Pressure Pulse Oximetry 100 100 100 Oxygen Delivery Method 11/03/22 15:15 11/03/22 15:15 11/03/22 15:20 Temperature Pulse Rate 65 67 Respiratory Rate 10 L 18 Blood Pressure 121/72 Pulse Oximetry 100 100 Oxygen Delivery Method 11/03/22 15:25 11/03/22 15:30 11/03/22 15:30 Temperature Pulse Rate 68 67 Respiratory Rate 21 15 Blood Pressure 130/70 Pulse Oximetry 100 100 Oxygen Delivery Method 11/03/22 15:35 11/03/22 15:40 11/03/22 15:21 Temperature Pulse Rate 71 67 Respiratory Rate 18 12 Blood Pressure Pulse Oximetry 100 100 Oxygen Delivery Method Room Air Oxygen Delivery Method Room Air Narrative Exam Narrative: cheerful alert laying in bed with at bedside Const General: cooperative, healthy appearing, comfortable and well developed HENSC Head: normocephalic and atraumatic Chest Other: tender to pressure - says that feels like the same pain Resp Other: moving air ok and satting all right on RA but does sound bit tight and constricted at bases Cardio Rate: regular rate Rhythm: regular rhythm Heart Sounds: S1 normal and S2 normal GI Auscultation: normal bowel sounds Neuro General: patient alert, patient awake, patient oriented x3, moves all extremities, no focal motor deficits and CN's II-XI intact bilaterally Extrem General: no pedal edema Objective Labs 11/03/22 12:53 11/03/22 12:53 Labs: Laboratory Results - last 24 hr 11/03/22 11/03/22 11/03/22 12:53 12:53 12:53 WBC 8.3 RBC 4.58 Hgb 15.1 Hct 43.2 MCV 94.3 MCH 33.1 MCHC 35.1 RDW 13.3 Plt Count 185 Neut % (Auto) 58.4 Lymph % (Auto) 28.0 [place] % (Auto) 8.1 Eos % (Auto) 4.9 H Baso % (Auto) 0.6 Neut # (Auto) 4800 Lymph # (Auto) 2300 [place] # (Auto) 700 Eos # (Auto) 400 Baso # (Auto) 0 PT 12.4 INR 1.1 APTT 25 L D-Dimer Sodium 137 Potassium 4.9 Chloride 103 Carbon Dioxide 23 BUN 23 H Creatinine 1.64 H Estimated GFR 46 L BUN/Creatinine Ratio 14.0 Glucose 101 Calcium 9.4 Magnesium 2.0 Total Bilirubin 0.7 AST 39 ALT 53 H Alkaline Phosphatase 90 Total Creatine Kinase 207 H CK-MB (CK-2) TNP CK-MB (CK-2) Rel Index TNP Troponin I < 0.012 Total Protein 7.9 Albumin 4.5 Globulin 3.4 Albumin/Globulin Ratio 1.3 Lipase 305 H 11/03/22 12:53 WBC RBC Hgb Hct MCV MCH MCHC RDW Plt Count Neut % (Auto) Lymph % (Auto) [place] % (Auto) Eos % (Auto) Baso % (Auto) Neut # (Auto) Lymph # (Auto) [place] # (Auto) Eos # (Auto) Baso # (Auto) PT INR APTT D-Dimer 371 Sodium Potassium Chloride Carbon Dioxide BUN Creatinine Estimated GFR BUN/Creatinine Ratio Glucose Calcium Magnesium Total Bilirubin AST ALT Alkaline Phosphatase Total Creatine Kinase CK-MB (CK-2) CK-MB (CK-2) Rel Index Troponin I Total Protein Albumin Globulin Albumin/Globulin Ratio Lipase Assessment & Plan Assessment & Plan narrative: #acute chest pain r/o ACS initial labs and imaging do no indicate this is cardiac - will trend some troponins and get an echoardiogram also continue prn nitro paste with aspirin and PPI - pt confirms he does not have true allergy to aspirin will try some NSAIDs also for possible costochondritis etiology #marlin reports he is out of his inhalers - usually takes advair with rescue - will order duonebs prn for him - reports lungs used to be quite bad as a young man needed lots of daily prednisone. #hx of colon cancer s/p resection, stable apparently cured. #hx of CKD3a stable avoid nephrotoxics Dispo: admit obs for CP workup PCP: Sasha [facility] Rosa [phone] DVT ppx: lovenox and SCDs time spent: 60 min
[2022-11-03 21:09] LABS: Troponin I < 0.012 ng/mL (0.01-0.034)
[2022-11-03] MEDS: IBUPROFEN 600 MG TABLET PO (21:18)
[2022-11-03] MEDS: TRAZODONE 50 MG TABLET 100 MG PO (21:18)
[2022-11-03] MEDS: FLUTICASONE 120 SPRAY/16 GM SPRAY.SUSP NASAL (21:18)
[2022-11-03] MEDS: CALCIUM CARBONATE 500 MG TAB 1000 MG PO (21:18)
[2022-11-03] MEDS: ACETAMINOPHEN 325 MG TABLET 650 MG PO (21:19)
[2022-11-03] MEDS: PANTOPRAZOLE DR 20 MG TABLET PO (21:19)
[2022-11-03] MEDS: ALBUTEROL 1.25 MG/3 ML NEB (PEDIATRIC) 0.63 MG INH (22:25)
[2022-11-04 01:07] LABS: Add Manual Diff / Slide Review NO; Basophils Absolute Auto 0 /uL (0-100); Basophils Percent Auto 0.1 % (0-2); Eosinophils Absolute Auto 200 /uL (0-450); Eosinophils Percent Auto 1.8 % (2-4); Hematocrit 40.2 % (41-53); Hemoglobin 14.2 g/dL (13.5-17.5); Lymphocytes Absolute Auto 1300 /uL (1100-4500); Mean Corpuscular HGB Conc 35.4 % (30-36); Mean Corpuscular Hemoglobin 33.2 PG (26-34); Monocytes Absolute Auto 1000 /uL (0-900); Monocytes Percent Auto 10.8 % (3-14); Neutrophils Absolute Auto 6500 /uL (1500-7000); Neutrophils Percent Auto 72.3 % (50-75); Platelet Count 173 X10^3/uL (150-400); Red Blood Cell Count 4.27 X10^6/uL (4.5-5.9); Red Cell Distribution Width 13.4 % (11.6-14.8)
[2022-11-04 01:11] LABS: Alanine Aminotransferase 47 IU/L (<50); Albumin 4.1 g/dL (3.5-5.0); Albumin Globulin Ratio 1.3 (1.0-2.8); Alkaline Phosphatase 79 U/L (38-126); Aspartate Aminotransferase 31 IU/L (17-59); Blood Urea Nitrogen 25 mg/dL (9-20); Carbon Dioxide 24 mmol/L (22-32); Chloride 103 mmol/L (98-107); Estimated Glomerular Filt Rate 45 mL/min (>60); Globulin 3.1 g/dL (1.7-4.1); Glucose 115 mg/dL (80-110); HEMOLYSIS < 15 (0-50); Potassium 4.9 mmol/L (3.4-5.1); Sodium 135 mmol/L (137-145); Total Protein 7.2 g/dL (6.3-8.2)
[2022-11-04 01:24] LABS: Troponin I < 0.012 ng/mL (0.01-0.034)
[2022-11-04 04:11] VITALS: BP 104/58; PULSE 75; RESP 20; TEMP 36.4; O2SAT 95
[2022-11-04] MEDS: ACETAMINOPHEN 325 MG TABLET 650 MG PO (06:18)
[2022-11-04] MEDS: PANTOPRAZOLE DR 20 MG TABLET PO ×2 (06:18→08:18)
[2022-11-04 08:00] VITALS: BP 104/64; PULSE 73; RESP 18; TEMP 36.6; O2SAT 95
[2022-11-04] MEDS: IBUPROFEN 600 MG TABLET PO (08:18)
[2022-11-04] MEDS: FLUTICASONE 120 SPRAY/16 GM SPRAY.SUSP NASAL (08:19)
[2022-11-04] MEDS: ENOXAPARIN 40 MG/0.4 ML SYRINGE SUBCUT (08:19)
--- NOTE | 2022-11-04 11:01 | PM.DS.1 ---
History of Present Illness History of Present Illness Date Patient Seen: 11/04/22 Time Patient Seen: 11:02 Date of Onset of Symptoms: 11/03/22 Chief complaint: back and headache, chest pain Narrative: CC: My chest hurts Feeling quite normal this morning eating defecating ambulating without issues. No pain. No more need for nitro. No reports on secured entrance monitor overnight a.m. labs wnl no cardiac concerns. Echocardiogram obtained but read still pending. Patient feels ready to go home and follow-up as outpatient Discharge Providers Provider Date of admission: 11/03/22 15:18 Discharge Date: 11/04/22 Primary care physician: Cruz Baez MD Discharge provider: Jn Chavarria MD Summary Hospital Course Discharge Diagnosis: #acute chest pain r/o ACS #asthma #hx of colon cancer #CKD3a Hospital Course: Pt presented to ED after sudden onset acute L sided chest pain while getting dressed yesterday morning. Recently retired with hx of asthma hyperlipidemia mild CKD and s/p distant resection colon cancer. He reports the nitro paste helped some. No prior cardiac history. He has been doing some gardening but no undue activity per him. Appetite is fine he feels stable on his feet no nausea. Pain was reproducible on pressure on chest. Normal secured entrance monitor overnight, normal a.m. troponin, got echo cardiogram. [place] better with administration of ibuprofen it just went away over night Status at Discharge Cognitive/behavioral status at discharge: at baseline, oriented Functional status at discharge: independent ambulation Overall status at discharge: patient is back to baseline Exam Vital Signs (past 8 hours): - 11/04/22 04:11 11/04/22 08:00 Temperature 97.6 F 98 F Pulse Rate 75 73 Respiratory Rate 20 18 Blood Pressure 104/58 L 104/64 Pulse Oximetry 95 95 Oxygen Flow Rate 0 0 Oxygen Delivery Method Room Air Oxygen Flow Rate 0 Narrative Exam Narrative: sitting in bed with daughter at bedside HENMT Head: normocephalic and atraumatic Resp Other: Clear to auscultation bilaterally Cardio Other: Regular rate and rhythm S1-S2 no murmurs rubs or gallops GI Other: Active bowel sounds Skin General: no rashes or lesions noted Neuro General: patient alert, patient awake, patient oriented x3, tone normal, moves all extremities and no focal motor deficits Extrem General: no pedal edema Objective Labs 11/04/22 00:45 11/04/22 00:45 Labs: Laboratory Results - last 24 hr 11/03/22 11/03/22 11/03/22 12:53 12:53 12:53 WBC 8.3 RBC 4.58 Hgb 15.1 Hct 43.2 MCV 94.3 MCH 33.1 MCHC 35.1 RDW 13.3 Plt Count 185 Neut % (Auto) 58.4 Lymph % (Auto) 28.0 [place] % (Auto) 8.1 Eos % (Auto) 4.9 H Baso % (Auto) 0.6 Neut # (Auto) 4800 Lymph # (Auto) 2300 [place] # (Auto) 700 Eos # (Auto) 400 Baso # (Auto) 0 PT 12.4 INR 1.1 APTT 25 L D-Dimer Sodium 137 Potassium 4.9 Chloride 103 Carbon Dioxide 23 BUN 23 H Creatinine 1.64 H Estimated GFR 46 L BUN/Creatinine Ratio 14.0 Glucose 101 Calcium 9.4 Magnesium 2.0 Total Bilirubin 0.7 AST 39 ALT 53 H Alkaline Phosphatase 90 Total Creatine Kinase 207 H CK-MB (CK-2) TNP CK-MB (CK-2) Rel Index TNP Troponin I < 0.012 Total Protein 7.9 Albumin 4.5 Globulin 3.4 Albumin/Globulin Ratio 1.3 Lipase 305 H 11/03/22 11/03/22 11/04/22 12:53 20:38 00:45 WBC 9.0 RBC 4.27 L Hgb 14.2 Hct 40.2 L MCV 94.0 MCH 33.2 MCHC 35.4 RDW 13.4 Plt Count 173 Neut % (Auto) 72.3 Lymph % (Auto) 15.0 L [place] % (Auto) 10.8 Eos % (Auto) 1.8 L Baso % (Auto) 0.1 Neut # (Auto) 6500 Lymph # (Auto) 1300 [place] # (Auto) 1000 H Eos # (Auto) 200 Baso # (Auto) 0 PT INR APTT D-Dimer 371 Sodium Potassium Chloride Carbon Dioxide BUN Creatinine Estimated GFR BUN/Creatinine Ratio Glucose Calcium Magnesium Total Bilirubin AST ALT Alkaline Phosphatase Total Creatine Kinase CK-MB (CK-2) CK-MB (CK-2) Rel Index Troponin I < 0.012 Total Protein Albumin Globulin Albumin/Globulin Ratio Lipase 11/04/22 11/04/22 00:45 00:45 WBC RBC Hgb Hct MCV MCH MCHC RDW Plt Count Neut % (Auto) Lymph % (Auto) [place] % (Auto) Eos % (Auto) Baso % (Auto) Neut # (Auto) Lymph # (Auto) [place] # (Auto) Eos # (Auto) Baso # (Auto) PT INR APTT D-Dimer Sodium 135 L Potassium 4.9 Chloride 103 Carbon Dioxide 24 BUN 25 H Creatinine 1.67 H Estimated GFR 45 L BUN/Creatinine Ratio 15.0 Glucose 115 H Calcium 9.0 Magnesium Total Bilirubin 1.0 AST 31 ALT 47 Alkaline Phosphatase 79 Total Creatine Kinase CK-MB (CK-2) CK-MB (CK-2) Rel Index Troponin I < 0.012 Total Protein 7.2 Albumin 4.1 Globulin 3.1 Albumin/Globulin Ratio 1.3 Lipase [facility] Medical History Abnormal LFTs Adenocarcinoma, colon (~02/2019) Anemia Asthma (02/23/11) Bladder calculi BPH w urinary obs/LUTS Chronic renal failure, stage 3 (moderate) (~2012) Elevated prostate specific antigen (PSA) (02/23/11) Gastroesophageal reflux disease without esophagitis (02/23/11) Glaucoma Hyperlipidemia (09/16/12) Left ureteral calculus Neuropathy Right ureteral calculus Seasonal allergies Secondary hyperparathyroidism Wears glasses Surgical History H/O gastric bypass History of back surgery History of colectomy (03/11/19) Hx of cystoscopy (06/05/21) Hx of cystoscopy (07/31/21) Hx of eye surgery Hx of sinus surgery S/P lumbar discectomy Status post laparoscopic cholecystectomy Family History Mother Carcinoid tumor Family/Other Cancer Social History marital status: number of children: 2 household members: spouse occupational status: employed Smoking Status: Never smoker alcohol intake: never substance use type: does not use Discharge Assessment & Plan Assessment and Plan Assessment: #acute chest pain r/o ACS labs and imaging obtained no indication of cardiac etiology at this time Obtained echo but read still pending, will f/u as needed - may need stress test as outpatient. Advised pt continue ASA 81 for a week with ibuprofen 600 tid as desired for possible chest pain discussed possible costochondritis etiology he endorses working a lot harder lately. #asthma stable, resume home meds #hx of colon cancer s/p resection, stable apparently cured. #CKD3a stable creatinine this admission, avoid nephrotoxics Dispo: home to f/u with PCP as outpatient PCP: Sasha Lee [phone] DVT ppx: lovenox and SCDs time spent: 40 min Discharge Plan Discharge Plan Patient Disposition: Home Discharge orders & Medications Prescriptions: Continued latanoprost 0.005 % drops 1 drp EYE-LEFT BEDTIME Qty: 0 fluticasone propionate 50 mcg/actuation spray,suspension 1 spray Intranasal BID Qty: 16 11RF (DME) Aerochamber MV Spacer See Rx Instructions .ROUTE .MEDSUPPLY Qty: 1 0RF Rx Instructions: Use as needed with inhaler potassium citrate 10 mEq (1,080 mg) tablet extended release 20 meq PO TID Qty: 540 3RF alfuzosin [Uroxatral] 10 mg tablet extended release 24 hr 10 mg PO DAILY Qty: 90 3RF Rx Instructions: administer after the same meal each day albuterol sulfate [Ventolin HFA] 90 mcg/actuation HFA aerosol inhaler 2 puff inhalation Q4HP PRN (Reason: Shortness Of Breath) Qty: 54 11RF albuterol sulfate 0.63 mg/3 mL solution for nebulization 0.63 mg continuous nebulization Q4HP PRN (Reason: Shortness Of Breath) Qty: 90 0RF trazodone 50 mg tablet 100 mg PO HS Qty: 180 3RF omeprazole 20 mg tablet,delayed release (DR/EC) 20 mg PO BID Qty: 180 3RF Advair HFA 230-21 mcg/actuation HFA aerosol inhaler 2 inh INHALATION DAILY PRN (Reason: shortness of breath or wheezing) Qty: 12 6RF Patient Comments: Pt does not take this dosage anymore dorzolamide 2 % drops 1 drp EYE-LEFT BID brimonidine ipratropium bromide Follow up/Referrals: Cruz Baez MD [Primary Care Provider] - Diet/Activity/Treatments Diet: Diet as Tolerated Visit Report/Discharge Packet Stand Alone Forms: Patient Portal/API, Stroke Signs & Symptoms Discharge Data Primary Care Provider: Cruz Baez Attending Provider: Jn Chavarria Date/Time: 11/03/22 15:18
--- NOTE | 2022-11-04 14:49 | CM.DANOTE ---
Initial Discharge Assessment Note: Met with patient and spouse. Introduced self and role. Payer: [employer] and self pay PCP: Cruz Baez 67 year old male admitted with acute onset L sided chest pain. He underwent tests and was cleared. He will follow up outpatient. Plan: Discharge home to care of spouse per orders. STARLA Discharge Planning/Care Management Advanced directive, confirm from FAMILY Start: 11/03/22 18:03 Freq: Q24H Status: Discharge Protocol: Document 11/03/22 18:03 MM (Rec: 11/03/22 18:15 MM [id number]) Advance Directive, confirm on record Time 18:15 Person contacted pt Copy received No CM Discharge Assessment Start: 11/04/22 14:47 Freq: Status: Active Protocol: Document 11/04/22 14:48 (Rec: 11/04/22 14:48 [id number]) Discharge Planning Assessment Assigned [employer] Opal Gan RN/JASWANTP Advance Directives? No Advance Directives on File No History Provided By Patient,Family Member,Medical Record Prior Living Arrangements House Household Members spouse Type of transporation used prior to Drives own vehicle admit Independent with ADL's Yes Is patient alert and oriented? Yes Barriers to Discharge No Discharge Plan Home Transportation Arrangement spouse Referrals Initiated None needed Review Status In Process Next Review Type Continued Stay Review
== END 2022-11-04 13:05 | disposition home or self-care (01) ==
LOC: ED 15:02 → AC 15:18
PROVIDERS: Admitting Provider Family Medicine; Emergency Provider Emergency Medicine; PCP Internal Medicine; Referring Provider Emergency Medicine; Visit Provider Family Medicine
DX: R07.9 Chest pain, unspecified (principal); J45.909 Unspecified asthma, uncomplicated; N18.31 Chronic kidney disease, stage 3a; Z85.038 Personal history of other malignant neoplasm of large intestine
CPT/HCPCS: 36415; 71045; 71275; 74174; 80053; 82550; 83690; 83735; 84484; 85025; 85379; 85610; 85730; 93005; 93010; 93306; 94640; 96372; 99284; G0378; J1650; J7613; Q9967

== ENCOUNTER → 2023-01-04 09:21 | Outpatient (CLI) | payer OTHER, SELFPAY ==
[2022-11-03 15:21] VITALS: BMI 29.7
[2023-01-04 10:29] LABS: BUN Creatinine Ratio 13.9 (6-22); Blood Urea Nitrogen 24 mg/dL (9-20); Calcium 9.1 mg/dL (8.4-10.2); Carbon Dioxide 22 mmol/L (22-32); Chloride 107 mmol/L (98-107); Cholesterol 174 mg/dL (140-199); Estimated Glomerular Filt Rate 43 mL/min (>60); Glucose 98 mg/dL (80-110); HDL Cholesterol 39 mg/dL (40-60); HEMOLYSIS < 15 (0-50); LDL Cholesterol Calculated 60 mg/dL (<100); Potassium 4.3 mmol/L (3.4-5.1); Sodium 138 mmol/L (137-145); Triglycerides 375 mg/dL (35-150)
[2023-01-04 10:40] LABS: LDL Cholesterol Direct 90 mg/dL (<100)
[2023-01-04 10:59] LABS: Prostate Specific Antigen 15.8 ng/mL (0.10-4.00)
== END ==
PROVIDERS: PCP Internal Medicine; Referring Provider Specialist; Visit Provider Specialist
DX: R97.20 Elevated prostate specific antigen [PSA] (principal); E78.2 Mixed hyperlipidemia; N18.30 Chronic kidney disease, stage 3 unspecified
CPT/HCPCS: 36415; 80048; 80061; 83721; 84153

== ENCOUNTER → 2023-01-29 16:02 | Outpatient (CLI) | payer OTHER, SELFPAY ==
[2022-11-03 15:21] VITALS: BMI 29.7
--- NOTE | 2023-01-29 16:09 | DI.RAD.S_ITS ---
PROCEDURE: XR KUB INDICATIONS: calculus of ureter TECHNIQUE: One view of the abdomen acquired. COMPARISON: , CT, CT KIDNEY URETER BLADDER (KUB), 05/17/2022, 15:50. , CR, XR ABDOMEN 1V, 06/08/2022, 12:27. , CR, XR KUB, 09/08/2021, 9:26. FINDINGS: Surgical changes and devices: Cholecystectomy clips. Bowel: Bowel gas pattern is normal. Soft tissues: No suspicious abdominal calcifications. Visualized solid organ contours appear normal in size. Bones: No suspicious bony lesions. IMPRESSION: No definite renal stone by plain film radiograph. Dictated by: Casandra Garcia MD, PhD on 01/29/2023 at 16:34 Approved by: Casandra Garcia MD, PhD on 01/29/2023 at 16:36
== END ==
PROVIDERS: PCP Internal Medicine; Referring Provider Specialist; Visit Provider Specialist
DX: N20.1 Calculus of ureter (principal)
CPT/HCPCS: 74018

== ENCOUNTER → 2023-01-30 09:36 | Outpatient (CLI) | payer OTHER, SELFPAY ==
[2022-11-03 15:21] VITALS: BMI 29.7
== END ==
PROVIDERS: PCP Internal Medicine; Visit Provider Specialist
DX: N40.1 Benign prostatic hyperplasia with lower urinary tract symptoms (principal); N13.8 Other obstructive and reflux uropathy; R97.20 Elevated prostate specific antigen [PSA]; N21.0 Calculus in bladder
CPT/HCPCS: 51798; 81002; 87086

== ENCOUNTER → 2023-02-07 11:43 | Outpatient (CLI) | payer OTHER, SELFPAY ==
[2022-11-03 15:21] VITALS: BMI 29.7
[2023-02-07 13:03] LABS: Hematocrit 42.4 % (41-53)
[2023-02-07 13:44] LABS: BUN Creatinine Ratio 10.4 (6-22); Blood Urea Nitrogen 18 mg/dL (9-20); Calcium 9.4 mg/dL (8.4-10.2); Carbon Dioxide 22 mmol/L (22-32); Chloride 105 mmol/L (98-107); Estimated Glomerular Filt Rate 43 mL/min (>60); Glucose 94 mg/dL (80-110); HEMOLYSIS < 15 (0-50); Sodium 138 mmol/L (137-145)
[2023-02-07 15:48] LABS: Creatinine Urine Random 210.5 mg/dL; Protein (Total) Urine Random 11 mg/dL (0-12); Protein Creatinine Ratio Urine 0.05 GRAM/24H
[2023-02-09 07:14] LABS: Parathyroid Hormone Int 94 pg/mL (15-65)
== END ==
PROVIDERS: PCP Internal Medicine; Referring Provider Student in an Organized Health Care Education/Training Program; Visit Provider Student in an Organized Health Care Education/Training Program
DX: N05.9 Unspecified nephritic syndrome with unspecified morphologic changes (principal); R80.9 Proteinuria, unspecified; D64.9 Anemia, unspecified; N25.81 Secondary hyperparathyroidism of renal origin
CPT/HCPCS: 36415; 80048; 82570; 83970; 84156; 85014; 85018

== ENCOUNTER → 2023-06-20 10:09 | Outpatient (CLI) | payer OTHER, SELFPAY ==
[2022-11-03 15:21] VITALS: BMI 29.7
[2023-06-20 11:36] LABS: Hematocrit 41.9 % (41-53); Hemoglobin 14.6 g/dL (13.5-17.5)
[2023-06-20 11:54] LABS: BUN Creatinine Ratio 12.9 (6-22); Blood Urea Nitrogen 21 mg/dL (9-20); Calcium 10.1 mg/dL (8.4-10.2); Carbon Dioxide 25 mmol/L (22-32); Chloride 106 mmol/L (98-107); Estimated Glomerular Filt Rate 46 mL/min (>60); Glucose 85 mg/dL (80-110); HEMOLYSIS < 15 (0-50); Potassium 5.1 mmol/L (3.4-5.1); Sodium 138 mmol/L (137-145)
[2023-06-20 13:24] LABS: Creatinine Urine Random 89.2 mg/dL; Protein (Total) Urine Random 8 mg/dL (0-12); Protein Creatinine Ratio Urine 0.08 GRAM/24H
[2023-06-23 13:06] LABS: Parathyroid Hormone Int 38 pg/mL (15-65)
== END ==
LOC: LAB 10:10
PROVIDERS: PCP Internal Medicine; Referring Provider Student in an Organized Health Care Education/Training Program; Visit Provider Student in an Organized Health Care Education/Training Program
DX: N05.9 Unspecified nephritic syndrome with unspecified morphologic changes (principal); D70.9 Neutropenia, unspecified; D63.1 Anemia in chronic kidney disease; R80.9 Proteinuria, unspecified; N25.81 Secondary hyperparathyroidism of renal origin
CPT/HCPCS: 36415; 80048; 82570; 83970; 84156; 85014; 85018

== ENCOUNTER → 2023-12-10 09:18 | Outpatient (CLI) | payer OTHER, SELFPAY ==
[2022-11-03 15:21] VITALS: BMI 29.7
[2023-12-10 10:35] LABS: Hematocrit 43.4 % (41-53); Hemoglobin 14.9 g/dL (13.5-17.5)
[2023-12-10 11:27] LABS: Blood Urea Nitrogen 24 mg/dL (9-20); Calcium 9.2 mg/dL (8.4-10.2); Carbon Dioxide 22 mmol/L (22-32); Chloride 108 mmol/L (98-107); Creatinine Urine Random 111.31 mg/dL; Estimated Glomerular Filt Rate 40 mL/min (>60); Glucose 97 mg/dL (80-110); HEMOLYSIS 18 (0-50); Potassium 5.3 mmol/L (3.4-5.1); Sodium 139 mmol/L (137-145)
[2023-12-10 11:28] LABS: Protein (Total) Urine Random < 5 mg/dL (0-12); Protein Creatinine Ratio Urine 0.04 GRAM/24H
== END ==
PROVIDERS: PCP Internal Medicine; Referring Provider Student in an Organized Health Care Education/Training Program; Visit Provider Student in an Organized Health Care Education/Training Program
DX: N05.9 Unspecified nephritic syndrome with unspecified morphologic changes (principal); D70.9 Neutropenia, unspecified; D63.1 Anemia in chronic kidney disease; N25.81 Secondary hyperparathyroidism of renal origin; R80.9 Proteinuria, unspecified
CPT/HCPCS: 36415; 80048; 82570; 83970; 84156; 85014; 85018

== ENCOUNTER → 2023-12-19 09:21 | Outpatient (CLI) | payer OTHER, SELFPAY ==
[2022-11-03 15:21] VITALS: BMI 29.7
[2023-12-19 10:31] LABS: HEMOLYSIS < 15 (0-50); Potassium 4.7 mmol/L (3.4-5.1)
== END ==
PROVIDERS: PCP Internal Medicine; Referring Provider Student in an Organized Health Care Education/Training Program; Visit Provider Student in an Organized Health Care Education/Training Program
DX: E87.5 Hyperkalemia (principal)
CPT/HCPCS: 36415; 84132

== ENCOUNTER → 2024-01-22 09:44 | Outpatient (CLI) | payer OTHER, SELFPAY ==
[2022-11-03 15:21] VITALS: BMI 29.7
[2024-01-22 10:13] LABS: Hematocrit 42.7 % (41-53); Hemoglobin 15.1 g/dL (13.5-17.5)
[2024-01-22 10:50] LABS: BUN Creatinine Ratio 9.5 (6-22); Blood Urea Nitrogen 18 mg/dL (9-20); Calcium 9.5 mg/dL (8.4-10.2); Carbon Dioxide 22 mmol/L (22-32); Chloride 109 mmol/L (98-107); Estimated Glomerular Filt Rate 38 mL/min (>60); Glucose 109 mg/dL (80-110); HEMOLYSIS < 15 (0-50); Potassium 4.7 mmol/L (3.4-5.1); Sodium 141 mmol/L (137-145)
[2024-01-22 11:12] LABS: Prostate Specific Antigen 9.21 ng/mL (0.10-4.00)
[2024-01-22 11:50] LABS: Creatinine Urine Random 153.27 mg/dL; Protein (Total) Urine Random 9 mg/dL (0-12); Protein Creatinine Ratio Urine 0.05 GRAM/24H
[2024-01-23 08:11] LABS: Parathyroid Hormone Int 53 pg/mL (15-65)
== END ==
PROVIDERS: Urology; PCP Internal Medicine; Referring Provider Student in an Organized Health Care Education/Training Program; Visit Provider Student in an Organized Health Care Education/Training Program
DX: N05.9 Unspecified nephritic syndrome with unspecified morphologic changes (principal); D70.9 Neutropenia, unspecified; D63.1 Anemia in chronic kidney disease; N25.81 Secondary hyperparathyroidism of renal origin; R80.9 Proteinuria, unspecified; N40.1 Benign prostatic hyperplasia with lower urinary tract symptoms; N13.8 Other obstructive and reflux uropathy
CPT/HCPCS: 36415; 80048; 82570; 83970; 84153; 84156; 85014; 85018

== ENCOUNTER → 2024-02-04 10:23 | Outpatient (CLI) | payer OTHER, SELFPAY ==
[2022-11-03 15:21] VITALS: BMI 29.7
== END ==
PROVIDERS: PCP Internal Medicine; Visit Provider Urology
DX: N40.1 Benign prostatic hyperplasia with lower urinary tract symptoms (principal); N13.8 Other obstructive and reflux uropathy; R97.20 Elevated prostate specific antigen [PSA]; Z87.442 Personal history of urinary calculi
CPT/HCPCS: 51798; 81002; 87086

== ENCOUNTER 2024-06-25 06:45 | Day surgery (SDC) | payer OTHER, SELFPAY ==
[2022-11-03 15:21] VITALS: BMI 29.7
--- NOTE | 2024-06-25 | PATH_ITS ---
[facility] Accession Number: [id number] No. of containers..04 Tissue . 01 Material submitted: . PART A: colon - ASCENDING COLON POLYPS PART B: colon - TRANSVERSE COLON POLYPS PART C: colon - DISTAL TRANSVERSE COLON POLYPS PART D: colon - SIGMOID COLON POLYPS . 01 Diagnosis: Part A: ASCENDING COLON POLYPS: Tubular adenomas. . Part B: TRANSVERSE COLON POLYPS: Tubular adenomas. . Part C: DISTAL TRANSVERSE COLON POLYPS: Tubular adenomas. . Part D: SIGMOID COLON POLYPS: Tubular adenomas. [facility] 06/29/2024 1515 Local . 01 Electronically signed: . Jean-Paul Rutherford MD, Pathologist NPI- [id number] . 01 Gross description: . A. Received in formalin with two patient identifiers and 1. Ascending colon polyps, are multiple ag soft tissue fragments aggregating to 2.4 x 1.2 x 0.5 cm. Filtered and submitted in A1. . B. Received in formalin with two patient identifiers and 2. Transverse colon polyps, are two ag soft tissue fragments, 0.3-0.4 cm in greatest dimension, submitted in B1. . C. Received in formalin with two patient identifiers and 3. Distal transverse colon polyps, are multiple ag soft tissue fragments aggregating to 1.8 x 0.7 x 0.3 cm. Filtered and submitted in C1. . D. Received in formalin with two patient identifiers and 4. Sigmoid colon polyps, are three ag soft tissue fragments, 0.2-0.5 cm in greatest dimension, submitted in D1. ([id number]) /MRV 06/29/2024 1515 Local . 01 Pathologist provided ICD-10: D12.2, D12.3, D12.5 . 01 CPT . 214441, 427451, [id number], [id number] Specimen Comment: A courtesy copy of this report has been sent to [phone] Performed at: [address] [id number] MD Jean-Paul Rutherford MD Phone: [phone]
[2024-06-25] MEDS: SODIUM CHLORIDE 0.9% 1,000 ML 150 ML IV (06:59)
[2024-06-25 07:07] VITALS: BP 157/86; PULSE 75; RESP 20; TEMP 36.2; O2SAT 98; BMI 28.8
--- NOTE | 2024-06-25 07:46 | PM.HP.IH.1 ---
History of Present Illness History of Present Illness Date Patient Seen: 06/25/24 Time Patient Seen: 07:46 Chief complaint: Colonoscopy Narrative: [place] is a 69-year-old man who is here for colonoscopy. He did have a partial colectomy [place] [address] Schafer and had a colonoscopy 1 year after that. [facility] Medical History (Updated 06/25/24 @ 07:47 by Flaco Shirley MD) History of nephrolithiasis Right ureteral calculus Secondary hyperparathyroidism Left ureteral calculus BPH w urinary obs/LUTS Bladder calculi Abnormal LFTs Wears glasses Neuropathy Chronic renal failure, stage 3 (moderate) (~2012) Anemia Adenocarcinoma, colon (~02/2019) Glaucoma Seasonal allergies Hyperlipidemia (09/16/12) Gastroesophageal reflux disease without esophagitis (02/23/11) Elevated prostate specific antigen (PSA) (02/23/11) Asthma (02/23/11) Surgical History Hx of cystoscopy (07/31/21) Hx of cystoscopy (06/05/21) H/O gastric bypass History of colectomy (03/11/19) Hx of eye surgery History of back surgery Hx of sinus surgery Status post laparoscopic cholecystectomy S/P lumbar discectomy Family History Mother Carcinoid tumor Family/Other Cancer Social History marital status: number of children: 2 household members: spouse occupational status: employed Smoking Status: Never smoker alcohol intake: never substance use type: does not use Meds Home Medications and Allergies Home Medications Medication Instructions Recorded Confirmed Type latanoprost 0.005 % eye drops 1 drp EYE-LEFT BEDTIME ##0 07/30/16 02/25/24 History fluticasone propionate 50 1 spray intranasal BID ##16 07/15/18 02/25/24 Rx mcg/actuation nasal spray,suspension dorzolamide 2 % eye drops 1 drp EYE-LEFT BID 03/05/19 02/25/24 History inhalational spacing device #1 ea 06/06/20 02/25/24 Rx (Aerochamber MV spacer) omeprazole 20 mg tablet,delayed 20 mg PO BID #180 tabs 09/03/22 02/25/24 Rx release brimonidine 11/03/22 02/25/24 History ipratropium bromide 11/03/22 02/25/24 History fluticasone propionate 230 2 inh inhalation DAILY PRN 10/24/23 02/25/24 Rx mcg-salmeterol 21 mcg/actuation shortness of breath or wheezing HFA inhaler (Advair HFA) #12 grams alfuzosin 10 mg tablet,extended 10 mg PO DAILY #90 tabs 01/06/24 02/25/24 Rx release 24 hr albuterol sulfate 0.63 mg/3 mL 0.63 mg (3 mL) continuous 02/17/24 06/25/24 Rx solution for nebulization nebulization Q4HP PRN Shortness Of Breath #90 mL trazodone 50 mg tablet 100 mg (2 x 50 mg) PO HS #180 tabs 03/13/24 Rx albuterol sulfate 90 mcg/actuation 2 puff inhalation Q4HP PRN 03/16/24 Rx aerosol inhaler (Ventolin HFA) Shortness Of Breath #76.5 grams Allergies Allergy/AdvReac Type Severity Reaction Status Date / Time aspirin [ASPIRIN] Allergy Unknown CAN'T TAKE Verified 02/25/24 09:11 SECONDARY TO ASTHMA Exam Vital Signs (past 8 hours): - 06/25/24 07:07 Temperature 97.1 F L Pulse Rate 75 Respiratory Rate 20 Blood Pressure 157/86 H Pulse Oximetry 98 Oxygen Delivery Method Room Air Oxygen Delivery Method Room Air Const General: healthy appearing Assessment & Plan Assessment and plan (1) History of colon cancer, stage II: Status: Acute Plan Colonoscopy Time-Based Coding :: [TOTAL MINUTES] spent with patient and on the chart (including review of chart, obtaining history, exam, reviewing outside data, placing orders, documenting exam and treatment plan, and counseling patient) on [DATE]. 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
[2024-06-25 08:37] VITALS: BP 132/66; PULSE 83; RESP 16; TEMP 36.2; O2SAT 96
--- NOTE | 2024-06-25 08:39 | P.OP.COLON_ITS ---
Operative Date/Time/Diagnoses Date of procedure: 06/25/24 Time of procedure: 08:39 Pre-op diagnosis: History of colon cancer Post-op diagnosis: same Procedure & Clinicians Study performed: Colonoscopy Same procedure as scheduled: Yes Surgeon: Flaco Shirley Procedure Notes Procedure in detail: Surgeon: Flaco Shirley MD Anesthesia: Shanna Navarro CRNA Procedure: The patient was brought to the endoscopy suite, placed in left lateral decubitus position. The patient was connected to monitoring devices. A time-out was performed. Sedation was administered. Once the patient was adequately sedated, a digital rectal exam was performed and was normal. The scope was then inserted and advanced to the cecum where the appendiceal orifice was identified and photographed. The scope was then slowly withdrawn over greater than 6 minutes. The mucosa was thoroughly inspected. There were several polyps in the ascending colon. One polyp was quite long and last and was removed piecemeal with multiple passes of the cold snare. There was some persistent bleeding from the polypectomy scar and so a single hemostatic clip was applied with good effect. The other 2 polyps were removed completely with a single pass of the cold snare. They were all sent together as ?ascending polyp s?. There were 2 small polyps, each about 4 mm, just proximal to the tattoo ink in the transverse colon. These were both removed with a cold snare and sent together as transverse polyps. There were 2 additional small polyps just distal to the tattoo ink which were removed with cold snare and sent together as ?distal transverse colon polyps. There were 2 small sigmoid polyps removed with a cold snare and sent together. The scope was retroflexed in the rectum. No other abnormalities were seen. The scope was straightened and removed. The patient was awakened and brought to recovery. Scope withdrawal time: 35 minutes Sedation time: 40 minutes EBL: 10 mL Findings: 9 polyps as described above. The largest polyp was in the ascending colon was a proximally 2 cm. All the other polyps were under 1 cm. Post-procedure Disposition: PACU
[2024-06-25 08:42] VITALS: BP 131/71; PULSE 75; RESP 18; O2SAT 97
[2024-06-25 08:47] VITALS: BP 130/75; PULSE 73; RESP 16; TEMP 36.2; O2SAT 96
[2024-06-25 08:54] VITALS: BP 138/75; PULSE 73; RESP 16; TEMP 36.2; O2SAT 97
== END 2024-06-25 09:00 | disposition home or self-care (01) ==
PROVIDERS: PCP Internal Medicine; Referring Provider Surgery; Visit Provider Surgery
PROC: 0DJD8ZZ Inspection of Lower Intestinal Tract, Via Natural or Artificial Opening Endoscopic (ICD-10-PCS; CPT 45378; principal; 2024-06-25 07:45)
DX: Z12.11 Encounter for screening for malignant neoplasm of colon (principal); Z85.038 Personal history of other malignant neoplasm of large intestine; J45.909 Unspecified asthma, uncomplicated; N18.30 Chronic kidney disease, stage 3 unspecified; N25.81 Secondary hyperparathyroidism of renal origin; H40.9 Unspecified glaucoma; N40.1 Benign prostatic hyperplasia with lower urinary tract symptoms; N13.9 Obstructive and reflux uropathy, unspecified; Z90.49 Acquired absence of other specified parts of digestive tract; Z98.84 Bariatric surgery status; D12.2 Benign neoplasm of ascending colon; D12.3 Benign neoplasm of transverse colon; D12.5 Benign neoplasm of sigmoid colon
CPT/HCPCS: 45385; J2405; J2704

== ENCOUNTER → 2024-07-24 10:14 | Outpatient (CLI) | payer OTHER, SELFPAY ==
[2022-11-03 15:21] VITALS: BMI 29.7
[2024-07-25 08:39] LABS: PSA Free % 18.8 % (.); PSA, Total 11.7 ng/mL (0.0-4.0)
== END ==
PROVIDERS: PCP Internal Medicine; Referring Provider Urology; Visit Provider Urology
DX: R97.20 Elevated prostate specific antigen [PSA] (principal); N40.1 Benign prostatic hyperplasia with lower urinary tract symptoms; N13.8 Other obstructive and reflux uropathy
CPT/HCPCS: 36415; 84153; 84154

== ENCOUNTER → 2024-08-04 10:26 | Outpatient (CLI) | payer OTHER, SELFPAY ==
[2022-11-03 15:21] VITALS: BMI 29.7
== END ==
PROVIDERS: PCP Internal Medicine; Visit Provider Urology
DX: N40.1 Benign prostatic hyperplasia with lower urinary tract symptoms (principal); N13.8 Other obstructive and reflux uropathy
CPT/HCPCS: 87086

== ENCOUNTER → 2024-09-16 10:33 | Outpatient (CLI) | payer OTHER, SELFPAY ==
[2022-11-03 15:21] VITALS: BMI 29.7
[2024-09-16 11:02] LABS: Hematocrit 42.6 % (41-53); Hemoglobin 14.9 g/dL (13.5-17.5)
[2024-09-16 11:23] LABS: BUN Creatinine Ratio 12.4 (6-22); Blood Urea Nitrogen 21 mg/dL (9-20); Calcium 9.3 mg/dL (8.4-10.2); Carbon Dioxide 21 mmol/L (22-32); Chloride 110 mmol/L (98-107); Estimated Glomerular Filt Rate 44 mL/min (>60); Glucose 97 mg/dL (70-99); HEMOLYSIS < 15 (0-50); Potassium 4.3 mmol/L (3.4-5.1); Sodium 141 mmol/L (137-145)
[2024-09-16 11:27] LABS: Creatinine Urine Random 138.39 mg/dL; Protein (Total) Urine Random < 5 mg/dL (0-12); Protein Creatinine Ratio Urine 0.03 GRAM/24H
[2024-09-17 05:12] LABS: Parathyroid Hormone Int 63 pg/mL (15-65)
== END ==
LOC: LAB 10:35
PROVIDERS: PCP Internal Medicine; Referring Provider Student in an Organized Health Care Education/Training Program; Visit Provider Student in an Organized Health Care Education/Training Program
DX: N05.9 Unspecified nephritic syndrome with unspecified morphologic changes (principal); D70.9 Neutropenia, unspecified; D63.1 Anemia in chronic kidney disease; N25.81 Secondary hyperparathyroidism of renal origin; R80.9 Proteinuria, unspecified
CPT/HCPCS: 36415; 80048; 82570; 83970; 84156; 85014; 85018

== ENCOUNTER → 2025-02-03 13:08 | Outpatient (CLI) | payer OTHER, SELFPAY ==
[2022-11-03 15:21] VITALS: BMI 29.7
== END ==
PROVIDERS: PCP Internal Medicine; Visit Provider Urology
DX: N40.1 Benign prostatic hyperplasia with lower urinary tract symptoms (principal); N13.8 Other obstructive and reflux uropathy
CPT/HCPCS: 87086

== ENCOUNTER → 2025-02-17 10:12 | Outpatient (CLI) | payer OTHER, SELFPAY ==
[2022-11-03 15:21] VITALS: BMI 29.7
[2025-02-17 10:41] LABS: Hematocrit 41.4 % (41-53); Hemoglobin 14.5 g/dL (13.5-17.5)
[2025-02-17 11:11] LABS: Protein (Total) Urine Random 6 mg/dL (0-12); Protein Creatinine Ratio Urine 0.04 GRAM/24H
[2025-02-17 11:16] LABS: Blood Urea Nitrogen 23 mg/dL (9-20); Calcium 9.4 mg/dL (8.4-10.2); Carbon Dioxide 24 mmol/L (22-32); Chloride 109 mmol/L (98-107); Estimated Glomerular Filt Rate 47 mL/min (>60); Glucose 90 mg/dL (70-99); HEMOLYSIS < 15 (0-50); Potassium 4.8 mmol/L (3.4-5.1); Sodium 140 mmol/L (137-145)
== END ==
PROVIDERS: PCP Internal Medicine; Referring Provider Internal Medicine; Visit Provider Student in an Organized Health Care Education/Training Program
DX: D63.1 Anemia in chronic kidney disease (principal); D70.9 Neutropenia, unspecified; N02.9 Recurrent and persistent hematuria with unspecified morphologic changes; N25.81 Secondary hyperparathyroidism of renal origin; R80.9 Proteinuria, unspecified
CPT/HCPCS: 36415; 80048; 82570; 83970; 84156; 85014; 85018